=== PATIENT | female | born 1950 | race Caucasian/White ===

== ENCOUNTER → 2020-01-01 12:45 | Outpatient (CLI) | payer MEDICARE, SELFPAY ==
--- NOTE | 2020-01-01 12:47 | XR_ITS ---
PROCEDURE: XR DEXA AXIAL SKELETON CLINICAL HISTORY: POST MENOPAUSAL COMPARISON: No exams were available for comparison FINDINGS: Right femoral neck density is 0.749 grams/centimeters sq with a T-score -0.9 Left femoral neck density is 0.750 grams/centimeters sq with T-score -0.9 L1-L4 density is 1.071 grams/centimeters sq with a T-score of 0.2 IMPRESSION: Normal bone density with low fracture risk Dictated by: Jase Das MD 01/01/2020 19:17 Electronically signed by Jase Das MD in [place] 01/01/2020 19:17
--- NOTE | 2020-01-01 12:47 | MM_ITS ---
PROCEDURE: MM DIG SCREENING MAMM BI W/CAD Digital Breast Tomosynthesis Included CLINICAL INDICATION: SCREENING There is no personal or family history of breast cancer. There has been a previous biopsy right breast for benign disease. Patient fell 5 years ago sustaining injury to the right breast which is near the previous biopsy site. COMPARISON: [facility] DIG MAMM-SCREEN MEAGAN from 04/05/2014 [facility] DIG MAMM-SCREEN MEAGAN from 06/19/2015 [facility] DIG MAMM-SCREEN MEAGAN W/CAD from 07/20/2016 TECHNIQUE: Standard CC and MLO images and 3D Tomosynthesis was obtained. R2 CAD reviewed. FINDINGS: Scattered fibroglandular densities are seen in the central portions of both breasts. Again noted is slightly increased asymmetric glandular elements upper-outer quadrant right breast at the site of the previous injury. There is and oil cyst just deep to the nipple right breast likely posttraumatic in etiology. A biopsy clip is seen upper outer quadrant right breast. There is a mole marker near the oil cyst and this was placed to ramila the site of the previous injury. There are 2 mole markers left breast. There are few scattered benign-appearing microcalcifications in each breast. A couple of tiny stable benign-appearing nodules left breast. There is no suspicious lesion and no suspicious microcalcifications. IMPRESSION: Fibrofatty parenchyma with minimal posttraumatic change right breast which is stable and no suspicious lesions seen BI-RAD Category: 2 Benign Finding(s) FOLLOW-UP: 1YR 1 Year Follow-up (A letter has been sent to the patient regarding results of the study.) Dictated by: Dr. Gibran Streeter MD 01/02/2020 11:[address] Gibran Streeter MD in [place] 01/02/2020 11:54
== END ==
PROVIDERS: PCP Family Medicine; Visit Provider Family Medicine
DX: Z12.31 Encounter for screening mammogram for malignant neoplasm of breast (principal); Z13.820 Encounter for screening for osteoporosis; Z78.0 Asymptomatic menopausal state
CPT/HCPCS: 77063; 77067; 77080

== ENCOUNTER → 2020-10-01 10:31 | Outpatient (CLI) | payer MEDICARE, SELFPAY | PROVIDERS: PCP Family Medicine; Visit Provider Podiatrist | DX: R09.89 Other specified symptoms and signs involving the circulatory and respiratory systems (principal) | CPT/HCPCS: 93923 ==

== ENCOUNTER → 2020-10-01 12:58 | Outpatient (POV) | payer MEDICARE, SELFPAY | PROVIDERS: Visit Provider Dermatology | DX: Z00.00 Encounter for general adult medical examination without abnormal findings (principal) ==

== ENCOUNTER → 2022-03-04 06:42 | Outpatient (CLI) | payer MEDICARE, SELFPAY | PROVIDERS: PCP Family Medicine; Visit Provider Surgery | DX: D48.5 Neoplasm of uncertain behavior of skin (principal) ==

== ENCOUNTER → 2022-03-25 06:11 | Outpatient (CLI) | payer MEDICARE, SELFPAY ==
[2022-03-25 18:30] LABS: Basophils # 0.1 K/mm3 (0-0.2); Basophils % 1.2 % (0.1-2.0); Eosinophils % 0.3 % (0.1-12.0); Hematocrit 43.4 % (37.0-47.0); Hemoglobin 13.7 g/dL (12.2-16.2); Lymphocytes # 0.9 K/mm3 (0.7-4.5); Lymphocytes % 13.2 % (10-50); Mean Corpuscular HGB Conc 31.5 g/dL (31.8-35.4); Mean Corpuscular Hemoglobin 29.3 pg (27.0-31.2); Mean Corpuscular Volume 93.2 fl (81-99); Mean Platelet Volume 9.3 fl (7.4-10.4); Monocytes # 0.4 K/mm3 (0.1-1.0); Monocytes % 5.2 % (1.7-9.3); Neutrophils # 5.6 K/mm3 (1.8-7.8); Neutrophils % 80.1 % (37.0-80.0); Platelet Count 244 K/mm3 (142-424); Red Blood Count 4.66 M/mm3 (4.20-5.40); Red Cell Distribution Width 13.8 % (11.5-17.5); White Blood Count 6.9 K/mm3 (4.8-10.8)
[2022-03-25 18:35] LABS: Blood Urea Nitrogen 31 mg/dl (7-17); Calcium 9.1 mg/dl (8.4-10.2); Carbon Dioxide 31 mmol/L (22.0-30.0); Chloride 99 mmol/L (98-107); Estimated Glomerular Filt Rate 41 ml/min (>60); GFR (African American) 49 ML/MIN (>60); Glucose 109 mg/dl (74-100); Phosphorous 3.9 mg/dl (2.5-4.5); Sodium 137 mmol/L (136-145)
[2022-03-25 18:47] LABS: Intact Parathyroid Hormone 93.5 pg/mL (7.5-53.5)
[2022-03-25 19:09] LABS: Hemoglobin A1C 5.7 % (4.0-6.0)
[2022-03-25 19:32] LABS: Creatinine,Urine Random 27 mg/dL (Not Estab.); Microalbumin < 6.000 mg/L (0-16.7)
== END ==
PROVIDERS: PCP Family Medicine; Visit Provider Family Medicine
DX: E11.65 Type 2 diabetes mellitus with hyperglycemia (principal); N18.32 Chronic kidney disease, stage 3b; Z79.84 Long term (current) use of oral hypoglycemic drugs
CPT/HCPCS: 80048; 82043; 82570; 83036; 83970; 84100; 85025

== ENCOUNTER → 2022-06-03 12:13 | Outpatient (CLI) | payer MEDICARE, SELFPAY | PROVIDERS: PCP Family Medicine; Visit Provider Family Medicine | DX: M79.10 Myalgia, unspecified site (principal) ==

== ENCOUNTER → 2022-06-03 13:30 | Outpatient (CLI) | payer MEDICARE, SELFPAY ==
--- NOTE | 2022-06-03 13:47 | XR_ITS ---
FINAL REPORT CLINICAL HISTORY: cervical radiculopathy FINDINGS: CERVICAL SPINE 5 views were obtained. There is no acute fracture. There are mild degenerative changes with osteophytes. There is mild anterolisthesis of C3 on C4 and C4 on C5. There is no soft tissue abnormality. IMPRESSION: Degenerative change with no acute bony abnormality. Reviewed, Interpreted and Dictated by Teodoro Nunez III, MD Transcribed by Daphne Butcher Authenticated and [facility]
[2022-06-03 17:38] LABS: Basophils % 0.6 % (0.1-2.0); Eosinophils % 0.2 % (0.1-12.0); Hematocrit 40.8 % (37.0-47.0); Lymphocytes # 0.8 K/mm3 (0.7-4.5); Lymphocytes % 14.6 % (10-50); Mean Corpuscular HGB Conc 31.8 g/dL (31.8-35.4); Mean Corpuscular Hemoglobin 29.3 pg (27.0-31.2); Mean Corpuscular Volume 92.2 fl (81-99); Mean Platelet Volume 9.3 fl (7.4-10.4); Monocytes # 0.3 K/mm3 (0.1-1.0); Monocytes % 4.8 % (1.7-9.3); Neutrophils # 4.1 K/mm3 (1.8-7.8); Neutrophils % 79.8 % (37.0-80.0); Platelet Count 237 K/mm3 (142-424); Red Blood Count 4.43 M/mm3 (4.20-5.40); Red Cell Distribution Width 14.1 % (11.5-17.5); White Blood Count 5.2 K/mm3 (4.8-10.8)
[2022-06-03 17:45] LABS: Anion Gap 19.9 mEq/L (5-15); Blood Urea Nitrogen 34 mg/dl (7-17); Calcium 9.6 mg/dl (8.4-10.2); Carbon Dioxide 30 mmol/L (22.0-30.0); Chloride 93 mmol/L (98-107); Creatine Kinase 42 U/L (30-135); Estimated Glomerular Filt Rate 37 ml/min (>60); GFR (African American) 45 ML/MIN (>60); Glucose 102 mg/dl (74-100); Potassium 3.9 mmoL/L (3.5-5.1); Sodium 139 mmol/L (136-145)
[2022-06-03 17:50] LABS: C-Reactive Protein 3.3 mg/L (0-4)
[2022-06-03 18:44] LABS: Erythrocyte Sedimentation Rate 23 mm/hr (0-30)
== END ==
PROVIDERS: PCP Family Medicine; Visit Provider Family Medicine
DX: M54.12 Radiculopathy, cervical region (principal); M79.10 Myalgia, unspecified site; N18.32 Chronic kidney disease, stage 3b; R25.2 Cramp and spasm
CPT/HCPCS: 72050; 80048; 82550; 85025; 85651; 86140

== ENCOUNTER → 2023-02-09 12:59 | Outpatient (CLI) | payer MEDICARE, SELFPAY ==
[2023-02-09 18:30] LABS: Alanine Aminotransferase 21 U/L (12-78); Albumin Level 3.7 g/dl (3.5-5.0); Albumin/Globulin Ratio 1.9 (1.1-1.8); Alkaline Phosphatase 81 U/L (38-126); Anion Gap 13.4 mEq/L (5-15); Aspartate Amino Transferase 25 U/L (14-36); Bilirubin,Total 0.4 mg/dl (0.2-1.3); Blood Urea Nitrogen 13 mg/dl (7-17); Calcium 8.5 mg/dl (8.4-10.2); Carbon Dioxide 30 mmol/L (22.0-30.0); Chloride 100 mmol/L (98-107); Estimated Glomerular Filt Rate 40 ml/min (>60); GFR (African American) 49 ML/MIN (>60); Globulin 1.9 g/dL (1.3-3.2); Glucose 92 mg/dl (74-100); Potassium 4.4 mmoL/L (3.5-5.1); Sodium 139 mmol/L (136-145); Total Protein,Serum 5.6 g/dl (6.3-8.2)
== END ==
PROVIDERS: PCP Family Medicine; Visit Provider Family Medicine
DX: F32.A Depression, unspecified (principal)
CPT/HCPCS: 80053

== ENCOUNTER → 2023-04-13 23:43 | Outpatient (CLI) | payer MEDICARE, SELFPAY ==
[2023-04-13 19:13] LABS: Basophils % 0.7 % (0.1-2.0); Eosinophils # 0.3 K/mm3 (0.0-0.4); Eosinophils % 5.5 % (0.1-12.0); Hematocrit 42.7 % (37.0-47.0); Hemoglobin 13.5 g/dL (12.2-16.2); Lymphocytes # 0.5 K/mm3 (0.7-4.5); Lymphocytes % 8.1 % (10-50); Mean Corpuscular HGB Conc 31.6 g/dL (31.8-35.4); Mean Corpuscular Hemoglobin 32.7 pg (27.0-31.2); Mean Corpuscular Volume 103.3 fl (81-99); Monocytes # 0.3 K/mm3 (0.1-1.0); Monocytes % 5.3 % (1.7-9.3); Neutrophils % 80.4 % (37.0-80.0); Platelet Count 151 K/mm3 (142-424); Red Blood Count 4.13 M/mm3 (4.20-5.40); Red Cell Distribution Width 15.7 % (11.5-17.5); White Blood Count 6.2 K/mm3 (4.8-10.8)
[2023-04-13 19:31] LABS: Anion Gap 12.7 mEq/L (5-15); Blood Urea Nitrogen 23 mg/dl (7-17); Calcium 9.2 mg/dl (8.4-10.2); Carbon Dioxide 32 mmol/L (22.0-30.0); Chloride 98 mmol/L (98-107); Estimated Glomerular Filt Rate 44 ml/min (>60); GFR (African American) 54 ML/MIN (>60); Glucose 99 mg/dl (74-100); Potassium 3.7 mmoL/L (3.5-5.1); Sodium 139 mmol/L (136-145)
[2023-04-13 19:44] LABS: Intact Parathyroid Hormone 113.9 pg/mL (7.5-53.5)
== END ==
PROVIDERS: PCP Psychiatry & Neurology Sleep Medicine; Visit Provider Family Medicine
DX: C90.00 Multiple myeloma not having achieved remission (principal); E11.8 Type 2 diabetes mellitus with unspecified complications; Z79.84 Long term (current) use of oral hypoglycemic drugs
CPT/HCPCS: 80048; 83970; 85025

== ENCOUNTER → 2023-06-15 23:26 | Outpatient (CLI) | payer MEDICARE, SELFPAY ==
[2023-06-15 18:03] LABS: Adenovirus,PCR Not Detected (NotDetected); Bordetella Pertussis Not Detected (NotDetected); Chlamydophila Pneumoniae, PCR Not Detected (NotDetected); Coronavirus 19, PCR Not Detected (NotDetected); Coronavirus 229E Not Detected (NotDetected); Coronavirus NL63 Not Detected (NotDetected); Coronavirus OC43 Not Detected (NotDetected); Coronovirus HKU1,PCR Not Detected (NotDetected); Human Metapneumovirus Not Detected (NotDetected); Influenza A, PCR Not Detected (NotDetected); Influenza AH1, 2009 Not Detected (NotDetected); Influenza AH1, PCR Not Detected (NotDetected); Influenza AH3,PCR Not Detected (NotDetected); Influenza B, PCR Not Detected (NotDetected); Parainfluenza 1, PCR Not Detected (NotDetected); Parainfluenza 2, PCR Not Detected (NotDetected); Parainfluenza 3, PCR Not Detected (NotDetected); Parainfluenza 4, PCR Not Detected (NotDetected); Rhinovirus/Enterovirus Not Detected (NotDetected)
[2023-06-15 18:39] LABS: Basophils % 0.4 % (0.1-2.0); Eosinophils # 0.2 K/mm3 (0.0-0.4); Hematocrit 44.1 % (37.0-47.0); Hemoglobin 14.8 g/dL (12.2-16.2); Lymphocytes # 0.2 K/mm3 (0.7-4.5); Lymphocytes % 4.1 % (10-50); Mean Corpuscular HGB Conc 33.5 g/dL (31.8-35.4); Mean Corpuscular Hemoglobin 34.4 pg (27.0-31.2); Mean Corpuscular Volume 102.8 fl (81-99); Mean Platelet Volume 11.1 fl (7.4-10.4); Monocytes # 0.3 K/mm3 (0.1-1.0); Monocytes % 7.1 % (1.7-9.3); Neutrophils # 3.8 K/mm3 (1.8-7.8); Neutrophils % 83.4 % (37.0-80.0); Platelet Count 145 K/mm3 (142-424); Red Blood Count 4.29 M/mm3 (4.20-5.40); Red Cell Distribution Width 15.6 % (11.5-17.5); White Blood Count 4.5 K/mm3 (4.8-10.8)
[2023-06-15 18:52] LABS: Chloride 93 mmol/L (98-107); Potassium 3.6 mmoL/L (3.5-5.1); Sodium 136 mmol/L (136-145)
[2023-06-15 18:55] LABS: Anion Gap 13.6 mEq/L (5-15); Blood Urea Nitrogen 28 mg/dl (7-17); Calcium 8.5 mg/dl (8.4-10.2); Carbon Dioxide 33 mmol/L (22.0-30.0); Estimated Glomerular Filt Rate 37 ml/min (>60); GFR (African American) 45 ML/MIN (>60); Glucose 138 mg/dl (74-100)
[2023-06-15 19:05] LABS: NT Pro Brain Natriuretic Pep. 580 pg/mL (0-125)
[2023-06-20 12:25] LABS: Mycoplasma Pneumoniae, PCR Not Detected (NotDetected); Respiratory Syncytial Virus Detected (NotDetected)
== END ==
PROVIDERS: PCP Nurse Practitioner; Visit Provider Nurse Practitioner
DX: R09.89 Other specified symptoms and signs involving the circulatory and respiratory systems (principal); R05.9 Cough, unspecified; R06.2 Wheezing; B97.4 Respiratory syncytial virus as the cause of diseases classified elsewhere
CPT/HCPCS: 80048; 83880; 85025; 87581; 87632; 87635; 87798

== ENCOUNTER → 2023-06-16 10:36 | Outpatient (CLI) | payer MEDICARE, SELFPAY ==
--- NOTE | 2023-06-16 10:41 | XR_ITS ---
FINAL REPORT CLINICAL HISTORY: cough, SOB, bibasilar rales FINDINGS: TWO-VIEW CHEST The heart size is normal. The mediastinum is normal. Right chest port is present. The lungs are clear. There is no pneumothorax. There are degenerative changes in the thoracic spine. There are postoperative changes in the bilateral humeri. IMPRESSION: No acute cardiopulmonary process. Reviewed, Interpreted and Dictated by Teodoro Nunez III, MD Transcribed by Alise Diaz Authenticated and [facility]
== END ==
PROVIDERS: PCP Family Medicine; Visit Provider Nurse Practitioner
DX: R09.89 Other specified symptoms and signs involving the circulatory and respiratory systems (principal)
CPT/HCPCS: 71046

== ENCOUNTER 2023-07-27 16:14 | Outpatient (POV) | payer MEDICARE, SELFPAY | END 2023-07-27 23:59 | disposition home or self-care (01) | LOC: SC 16:15 | PROVIDERS: PCP Family Medicine; Visit Provider Dermatology | DX: Z00.00 Encounter for general adult medical examination without abnormal findings (principal) ==

== ENCOUNTER 2023-11-11 18:00 | Outpatient (CLI) | payer MEDICARE, SELFPAY ==
[2023-11-11 17:40] LABS: Adenovirus,PCR Not Detected (NotDetected); Coronavirus 19, PCR Not Detected (NotDetected); Coronavirus 229E Not Detected (NotDetected); Coronavirus NL63 Not Detected (NotDetected); Coronavirus OC43 Not Detected (NotDetected); Coronovirus HKU1,PCR Not Detected (NotDetected); Human Metapneumovirus Not Detected (NotDetected); Influenza A, PCR Not Detected (NotDetected); Influenza AH1, 2009 Not Detected (NotDetected); Influenza AH1, PCR Not Detected (NotDetected); Influenza AH3,PCR Not Detected (NotDetected); Influenza B, PCR Not Detected (NotDetected); Parainfluenza 1, PCR Not Detected (NotDetected); Parainfluenza 2, PCR Not Detected (NotDetected); Parainfluenza 4, PCR Not Detected (NotDetected); Respiratory Syncytial Virus Not Detected (NotDetected); Rhinovirus/Enterovirus Not Detected (NotDetected)
[2023-11-11 20:09] LABS: Parainfluenza 3, PCR Detected (NotDetected)
== END 2023-11-11 23:59 | disposition home or self-care (01) ==
LOC: LAB.DROPOF 11-12 13:44
PROVIDERS: PCP Nurse Practitioner; Visit Provider Nurse Practitioner
DX: J12.2 Parainfluenza virus pneumonia (principal); R50.9 Fever, unspecified; R05.9 Cough, unspecified; R09.81 Nasal congestion; Z79.899 Other long term (current) drug therapy
CPT/HCPCS: 87632; 87635

== ENCOUNTER 2023-12-23 18:00 | Outpatient (CLI) | payer MEDICARE, SELFPAY ==
[2023-12-23 20:04] LABS: Adenovirus,PCR Not Detected (NotDetected); Bordetella Pertussis Not Detected (NotDetected); Chlamydophila Pneumoniae, PCR Not Detected (NotDetected); Coronavirus 229E Not Detected (NotDetected); Coronavirus NL63 Not Detected (NotDetected); Coronavirus OC43 Not Detected (NotDetected); Coronovirus HKU1,PCR Not Detected (NotDetected); Human Metapneumovirus Not Detected (NotDetected); Influenza A, PCR Not Detected (NotDetected); Influenza AH1, 2009 Not Detected (NotDetected); Influenza AH1, PCR Not Detected (NotDetected); Influenza AH3,PCR Not Detected (NotDetected); Influenza B, PCR Not Detected (NotDetected); Mycoplasma Pneumoniae, PCR Not Detected (NotDetected); Parainfluenza 1, PCR Not Detected (NotDetected); Parainfluenza 2, PCR Not Detected (NotDetected); Parainfluenza 3, PCR Not Detected (NotDetected); Parainfluenza 4, PCR Not Detected (NotDetected); Respiratory Syncytial Virus Not Detected (NotDetected); Rhinovirus/Enterovirus Not Detected (NotDetected)
[2023-12-23 20:11] LABS: Basophils # 0.1 K/mm3 (0-0.2); Basophils % 1.2 % (0.1-2.0); Eosinophils # 0.1 K/mm3 (0.0-0.4); Eosinophils % 2.2 % (0.1-12.0); Hematocrit 39.4 % (37.0-47.0); Hemoglobin 12.8 g/dL (12.2-16.2); Lymphocytes # 0.4 K/mm3 (0.7-4.5); Lymphocytes % 6.4 % (10-50); Mean Corpuscular HGB Conc 32.3 g/dL (31.8-35.4); Mean Corpuscular Hemoglobin 33.9 pg (27.0-31.2); Mean Corpuscular Volume 104.8 fl (81-99); Mean Platelet Volume 10.1 fl (7.4-10.4); Monocytes # 0.3 K/mm3 (0.1-1.0); Monocytes % 4.4 % (1.7-9.3); Neutrophils % 85.7 % (37.0-80.0); Platelet Count 149 K/mm3 (142-424); Red Blood Count 3.76 M/mm3 (4.20-5.40); Red Cell Distribution Width 15.9 % (11.5-17.5); White Blood Count 5.8 K/mm3 (4.8-10.8)
[2023-12-23 20:12] LABS: MANUAL DIFFERENTIAL MANUAL DIFFERENTIAL (MANUAL DIFF)
[2023-12-23 20:40] LABS: Hemoglobin A1C 5.6 % (4.0-6.0)
[2023-12-23 20:43] LABS: Eosinophils % 1 % (0-3); Lymphocytes % 8 % (10-50); Macrocytosis 1+; Monocytes % 5 % (2-9); Neutrophils % 86 % (42-76); Platelet Estimate Normal; Total Cells Counted 100
[2023-12-23 22:54] LABS: Coronavirus 19, PCR Detected (NotDetected)
== END 2023-12-23 23:59 | disposition home or self-care (01) ==
LOC: LAB.DROPOF 12-24 14:30
PROVIDERS: PCP Nurse Practitioner; Visit Provider Nurse Practitioner
DX: E11.65 Type 2 diabetes mellitus with hyperglycemia; U07.1 COVID-19; Z79.84 Long term (current) use of oral hypoglycemic drugs
CPT/HCPCS: 83036; 85007; 85025; 85027; 87581; 87632; 87635; 87798

== ENCOUNTER 2024-05-03 13:25 | Outpatient (CLI) | payer MEDICARE, SELFPAY ==
[2024-05-03 18:10] LABS: Adenovirus,PCR Not Detected (NotDetected); Bordetella Pertussis Not Detected (NotDetected); Chlamydophila Pneumoniae, PCR Not Detected (NotDetected); Coronavirus 19, PCR Not Detected (NotDetected); Coronavirus 229E Not Detected (NotDetected); Coronavirus NL63 Not Detected (NotDetected); Coronavirus OC43 Not Detected (NotDetected); Coronovirus HKU1,PCR Not Detected (NotDetected); Human Metapneumovirus Not Detected (NotDetected); Influenza A, PCR Not Detected (NotDetected); Influenza AH1, 2009 Not Detected (NotDetected); Influenza AH1, PCR Not Detected (NotDetected); Influenza AH3,PCR Not Detected (NotDetected); Influenza B, PCR Not Detected (NotDetected); Mycoplasma Pneumoniae, PCR Not Detected (NotDetected); Parainfluenza 1, PCR Not Detected (NotDetected); Parainfluenza 2, PCR Not Detected (NotDetected); Parainfluenza 3, PCR Not Detected (NotDetected); Parainfluenza 4, PCR Not Detected (NotDetected); Respiratory Syncytial Virus Not Detected (NotDetected); Rhinovirus/Enterovirus Not Detected (NotDetected)
== END 2024-05-03 23:59 | disposition home or self-care (01) ==
LOC: LAB.DROPOF 05-04 13:25
PROVIDERS: PCP Nurse Practitioner; Visit Provider Nurse Practitioner
DX: J06.9 Acute upper respiratory infection, unspecified (principal)
CPT/HCPCS: 87265; 87486; 87581; 87632; 87635

== ENCOUNTER 2024-05-22 12:26 | Outpatient (CLI) | payer MEDICARE, SELFPAY ==
[2024-05-22 17:58] LABS: Adenovirus,PCR Not Detected (NotDetected); Bordetella Pertussis Not Detected (NotDetected); Chlamydophila Pneumoniae, PCR Not Detected (NotDetected); Coronavirus 19, PCR Not Detected (NotDetected); Coronavirus 229E Not Detected (NotDetected); Coronavirus NL63 Not Detected (NotDetected); Coronavirus OC43 Not Detected (NotDetected); Coronovirus HKU1,PCR Not Detected (NotDetected); Human Metapneumovirus Not Detected (NotDetected); Influenza A, PCR Not Detected (NotDetected); Influenza AH1, 2009 Not Detected (NotDetected); Influenza AH1, PCR Not Detected (NotDetected); Influenza AH3,PCR Not Detected (NotDetected); Influenza B, PCR Not Detected (NotDetected); Mycoplasma Pneumoniae, PCR Not Detected (NotDetected); Parainfluenza 1, PCR Not Detected (NotDetected); Parainfluenza 2, PCR Not Detected (NotDetected); Parainfluenza 3, PCR Not Detected (NotDetected); Parainfluenza 4, PCR Not Detected (NotDetected); Respiratory Syncytial Virus Not Detected (NotDetected)
[2024-05-23] LABS: Rhinovirus/Enterovirus Detected (NotDetected)
== END 2024-05-22 23:59 | disposition home or self-care (01) ==
LOC: LAB.DROPOF 05-23 09:30
PROVIDERS: PCP Nurse Practitioner; Visit Provider Nurse Practitioner
DX: J06.9 Acute upper respiratory infection, unspecified (principal); J40 Bronchitis, not specified as acute or chronic; R05.9 Cough, unspecified; R06.2 Wheezing; J18.9 Pneumonia, unspecified organism
CPT/HCPCS: 87265; 87486; 87581; 87632; 87635

== ENCOUNTER 2024-10-17 11:19 | Outpatient (CLI) | payer MEDICARE, SELFPAY ==
[2024-10-17 18:04] LABS: Coronavirus 19, PCR Not Detected (NotDetected); Influenza A, PCR Not Detected (NotDetected); Influenza B, PCR Not Detected (NotDetected); Respiratory Syncytial Virus Not Detected (NotDetected)
[2024-10-17 18:51] LABS: Basophils % 0.6 % (0.1-2.0); Eosinophils # 0.5 K/mm3 (0.0-0.4); Eosinophils % 7.2 % (0.1-12.0); Hematocrit 39.4 % (37.0-47.0); Lymphocytes # 0.6 K/mm3 (0.7-4.5); Lymphocytes % 8.2 % (10-50); Mean Corpuscular Hemoglobin 33.7 pg (27.0-31.2); Mean Corpuscular Volume 102.1 fl (81-99); Mean Platelet Volume 10.7 fl (7.4-10.4); Monocytes # 0.4 K/mm3 (0.1-1.0); Neutrophils # 5.6 K/mm3 (1.8-7.8); Neutrophils % 77.6 % (37.0-80.0); Platelet Count 208 K/mm3 (142-424); Red Blood Count 3.86 M/mm3 (4.20-5.40); White Blood Count 7.2 K/mm3 (4.8-10.8)
[2024-10-17 21:09] LABS: Human Rhinovirus Detected (NotDetected)
== END 2024-10-17 23:59 | disposition home or self-care (01) ==
LOC: LAB.DROPOF 10-18 09:49
PROVIDERS: PCP Nurse Practitioner; Visit Provider Nurse Practitioner
DX: J06.9 Acute upper respiratory infection, unspecified (principal)
CPT/HCPCS: 85025; 87631

== ENCOUNTER 2025-05-09 11:52 | Outpatient (CLI) | payer MEDICARE, SELFPAY ==
--- OUTSIDE RECORDS SUMMARY | 2025-05-10 13:59 | XMS_ITS | Clinical Summary ---
Author Organization [facility] Address [address] [place] [address] Care Team Providers Care Process Tank Tender Name Role Phone Sarath Keen MD Primary Care Provider [phone] Nina Farmer MD Unavailable Source Comments This information has been disclosed to you from confidential records protectedfrom disclosure by state law. You shall make no further disclosure of thisinformation without the specific, written, and informed release of theindividual to whom it pertains, or as otherwise permitted by law. A generalauthorization for the release of medical or other information is not sufficientfor the purposes of therelease of HIV test results or diagnoses. [id number] Allergies Active Allergy Reactions Criticality Noted Date Comments Penicillins Hives 02/01/2022 Sulfa (Sulfonamide Antibiotics) Nausea Only 03/02/2012 Other Reaction(s): NA-NAUSEA/FEVER Sulphated Oil 01/20/2023 Medications aspirin 81 MG EC tablet Take by mouth. Activ e citalopram (CELEXA) 10 MG tablet Take 1 tablet (10 mg total) by mouth daily. Active multivitamin (THERAGRAN) tablet Take 1 tablet by mouth daily. Active calcium-vitamin D (OSCAL-500 + D) 500 mg-5 mcg (200 unit) per tablet Take 1 tablet by mouth 2 times a day with meals. 4 Active gabapentin (NEURONTIN) 600 MG tablet Take 1 tablet (600 mg total) by mouth. 2 Active lenalidomide (REVLIMID) 10 mg capsule TAKE 1 CAPSULE DAILY FOR 21 DAYS, THEN 7 DAYS OFF 5 Active potassium chloride (KLOR-CON M20) 20 MEQ tablet Take 1 tablet (20 mEq total) by mouth daily. 4 Active JANUVIA 100 mg tablet 2 Active triamterene-hyd rochlorothiazid e (MAXZIDE-25) 37.5-25 mg tablet Take 1 tablet by mouth daily. 2 Active valACYclovir (VALTREX) 500 MG tablet Take 1 tablet (500 mg total) by mouth every 12 hours. 5 Active omeprazole (PRILOSEC) 40 MG capsule Take 1 capsule (40 mg total) by mouth daily. 2 Active allopurinoL (ZYLOPRIM) 300 MG tablet Take 1 tablet (300 mg total) by mouth every 48 hours. Active acetaminophen (TYLENOL) 325 MG tablet Take 2 tablets (650 mg total) by mouth every 6 hours as needed for Pain 100 tablet 5 Active naloxone (NARCAN) 4 mg/actuation Denhoff Apply 1 spray in one nostril if needed. Call 911. May repeat dose in other nostril if no response in 3 minutes. 2 each 1 5 Active fluticasone propionate (FLONASE) 50 mcg/actuation nasal spray PLACE 1 SPRAY INTO EACH NOSTRIL ONCE DAILY 5 Active fluorouraciL (EFUDEX) 5 % cream APPLY TOPICALLY DAILY X 30 DAYS OR UNTIL RED/INFLAMED TO THE ENTIRE FACE 5 Active cetirizine (ZYRTEC) 10 MG tablet TAKE 1 TABLET BY MOUTH DAILY NEEDED FOR ALLERGY SYMPTOMS 5 Active metoprolol tartrate (LOPRESSOR) 50 MG tablet take 1 tablet by mouth twice daily for blood pressure. 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 Cancer Staging:Pathologic stage from 09/20/2024:Stage III(pT2, pN1, cM0) - Signed by Rangel Carvajal MD on 09/20/2024 Cancer of face 08/22/2024 Hypertension 08/22/2024 Diabetes mellitus 08/22/2024 CKD (chronic kidney disease) 08/22/2024 Multiple myeloma 08/22/2024 AK (actinic keratosis) 11/28/2012 Neoplasm of uncertain behavior of skin 0 Actinic keratosis 12/20/2008 Contact dermatitis and other eczema, due to unspecified cause 12/20/2008 Rosacea 12/20/2008 Other specified disease of sebaceous glands 12/10 Urticaria 12/20/2008 Overview (04/11/2015): ICD-10 Transition Other dyschromia 12/20/2008 Actinic keratosis Encounters Date Type Department Care Team Description 03/09/2025 10:45 AM EDT Office Visit [facility] Ot[facility] at [facility] [address] [place] [address] Ken Alvarado MD Cooper, John G, MD Cancer of skin of face (Primary Dx) from Last 3 Months Family History Medical History Relation Comments Coronary artery disease Brother Anesthesia problems Neg Hx Melanoma Neg Hx Stroke Neg Hx Relation Status Comments Brother Social History Tobacco Use Types Packs/Day Years Used Date Smoking Tobacco: Never Smokeless Tobacco: Never Tobacco Cessation:Counseling Given: Not Answered Comments:12/20/08 Alcohol Use Standard Drinks/Week Comments Never 0 (1 standard drink = 0.6 oz pur e alcohol) 12/20/08 Utilities Answer Date Recorded In the past 12 months has th e electric, gas, oil, or water company threatened to shut off services in your home? No 09/07/2024 AUDIT-C Answer Date Recorded Q1: How often do you have a drink containing alc ohol? Monthly or less 09/08/2024 Q2: How many drinks containi ng alcohol do you have on a typical day when you are drinking? 1 or 2 09/08/2024 Q3: How often do you have si x or more drinks on one occasion? Never 09/08/2024 PHQ-2 Answer Date Recorded PHQ-2 Total Score 0 03/09/2025 Hunger Vital Sign Answer Date Recorded Within the past 12 months, y ou worried that your food would run out before you got the money to buy more. Never true 09/07/19 25 Within the past 12 months, t he food you bought just didn't last and you didn't have money to get more. Never true 09/07/2024 PRAPARE - Transportation Answer Date Re corded In the past 12 months, has l ack of transportation kept you from medical appointments or from getting medications? No 08/13 In the past 12 months, has l ack of transportation kept you from meetings, work, or from getting things needed for daily living? No 09/07/2024 Housing Stability Vital Sign Answer Valerio e Recorded In the last 12 months, was t here a time when you were not able to pay the mortgage or rent on time? No 09/07/2024 In the past 12 months, how m any times have you moved where you were living? 0 09/07/2024 At any time in the past [facility], were you homeless or living in a [facility] (including now)? No 09/07/2024 Yearly Questionnaire Answer Date Record ed Do you need any assistance w ith obtaining housing, meals, medication, transportation or medical equipment? No 03/09 Assistance needed for: Not on file Yearly Questionnaire Answer Date Record ed Do you need any assistance w ith obtaining housing, meals, medication, transportation or medical equipment? No 03/09 Assistance needed for: Not on file Yearly Questionnaire Answer Date Record ed Do you need any assistance w ith obtaining housing, meals, medication, transportation or medical equipment? No 03/09 Assistance needed for: Not on file 5 Comments No Sex and Gender Information Value Date Recorded Sex Assigned at Not on file Legal Sex Female 8:56 PM EST Gender Identity Not on file Sexual Orientation Not on file Last Filed Vital Signs Vital Sign Reading Time Taken Comments Blood Pressure 133/80 03/09/2025 10:35 AM EDT Pulse 72 03/09/2025 10:35 AM EDT Temperature 36.1 C (97 F) 03/09/2025 10:35 AM EDT Respiratory Rate 16 03/09/2025 10:35 AM EDT Oxygen Saturation 97% 03/09/2025 10:35 AM EDT Inhaled Oxygen Concentration 97% 03/09/2025 1 0:35 AM EDT Weight 124.3 kg (274 lb) 03/09/2025 10:35 AM EDT Height 165.1 cm (5' 5 ) 03/09/2025 10:35 AM EDT Body Mass Index 45.6 03/09/2025 10:35 AM EDT Plan of Treatment Health Maintenance Due Date Last Done Comments ASCVD Assessment 1950 Abnormal Colonoscopy Follow Up 1950 Lipid Panel 1950 Immunization: Zoster (1 of 2) 1971 Mammogram (MyChart) 1992 Cologuard (FIT-DNA) 1997 Colonoscopy 1997 Colorectal Cancer Screening (MyChart) 1997 Stool Testing (gFOBT) 1997 Osteoporosis Screening (DXA Scan) 2002 Immunization: RSV (Adult) (1 - Risk 60-74 years 1-dose series) 2012 Immunization: Pneumococcal (2 of 2 - PCV) 06/11/2022 06/11/2021 Diabetic Eye Exam (MyChart) 08/22/2024 Urine Albumin/Creatinine Ratio 08/22/2024 Hemoglobin A1C Monitoring ([employer]) 02/19/2025 08/22/2024 Immunization: COVID-19 ( season) 2025 05/27/2023, 01/19/2022, 05/09/2021, Additional history exists Immunization: Influenza ([employer]) (#1) 03/12/2025 05/16/2024, 07/06/2022, 06/11/2021, Additional history exists Renal Function/GFR 09/08/2025 09/08/2024, 0 09/07/2024, 08/22/2024 Depression Screening 03/09/2026 03/09/2025, 08/11/19 25 Immunization: DTaP/Tdap/Td (2 - Td or Tdap) 10/27/2027 10/26/2017, 09/16/1996 Immunization: HPV Aged Out No longer eligible based on patient's age to complete this topic Procedures Procedure Name Priority Date/Time Associated Diagnosis Comments RENAL FUNCTION PANEL W/EGFR Routine 09/08/2024 7:03 AM EST HEMOGLOBIN A1C Routine 08/22/2024 11:35 AM EST Pre-op evaluation from Last 3 Months or Most Recently Relevant to Health Maintenance Results * (ABNORMAL) Renal Function Panel w/EGFR (09/08/2024 7:03 AM EST) Sodium 140 133 - 146 mmol/L 09/08/2024 7:58 AM EST [facility] Potassium 3.6 3.5 - 5.3 mmol/L 09/08/2024 7:58 AM [facility] Chloride 105 98 - 110 mmol/L 09/08/2024 7:58 AM EST [facility] CO2 28 21 - 33 mmol/L 09/08/2024 7:58 AM [facility] Anion Gap 7 3 - 16 mmol/L 09/08/2024 7:58 AM EST [facility] BUN 22 7 - 25 mg/dL 09/08/2024 7:58 AM [facility] Creatinine 1.09 0.60 - 1.30 mg/dL 09/08/2024 7:58 AM [facility] Glucose 103(H) 70 - 100 mg/dL 09/08/2024 7:58 AM EST [facility] Calcium 8.4(L) 8.6 - 10.3 mg/dL 09/08/2024 7:58 AM [facility] Phosphorus 2.8 2.1 - 4.5 mg/dL 09/08/2024 7:58 AM [facility] Albumin 3.6 3.5 - 5.7 g/dL 09/08/2024 7:58 AM [facility] Osmolality, Calculated 294 278 - 305 mOsm/kg 09/08/2024 7:58 AM EST [facility] EGFR 54 09/08/2024 7:58 AM [facility] Comment:As of 2021, the estimated GFR is calculated using the 2020 Chronic Kidney Disease Epidemiology Collaboration (CKD-EPI) equation. In line with the NKF-ASN Task Force Recommendations, this equation does not include a coefficient for race. A single eGFR value is calculated for each patient. The reference interval is >60 mL/min/1.73m2. eGFR values greater than 90 will be reported as >90mL/min/1.73m2. Reference: Nabil Ordoñez, Daniel M, Tabby DC, Kalina ND, Celena [place], Ashley LA, et al. A Unifying Approach for GFR Estimation: Recommendations of the NKF-ASN Task Force on Reassessing the inclusion of Race in Diagnosing Kidney Disease. Am J Kidney Dis. 2020. Plasma 09/08/2024 7:03 AM EST 09/08/2024 7:27 AM EST Leeroy Arellano MD LAB BLOOD ORDERABLES Fin al Result [facility] [address] [facility]. [address] * (ABNORMAL) Hemoglobin A1c (08/22/2024 11:35 AM EST) Hemoglobin A1C 5.9(H) 4.0 - 5.6 % 08/22/2024 5:57 PM EST [facility] Comment: Hemoglobin A1c Interpretation Guidelines: Normal: <5.7% Prediabetes: 5.7-6.4% Diabetes: >6.4% Diagnosis requires two independent tests unless clinical diagnosis is clear. Some clinical conditions, particularly anemias and hemoglobinopathies, may interfere with the diagnostic accuracy of hemoglobin A1c. The recommended goal for diabetic glycemic control (Hemoglobin A1c <7.0%) should be individualized based on duration of diabetes, age/life expectancy, comorbid conditions, known CVD or advanced microvascular complications, hypoglycemia unawareness, and other individual patient considerations. Whole Blood 08/22/2024 11:3 5 AM EST 08/22/2024 2:03 PM EST Magalys Castañeda CNP LAB BLOOD ORDERABLES Final Result Performing Organization Address City/[facility]/ZIP Co de Phone Number [facility] [address] from Last 3 Months or Most Recently Relevant to Health Maintenance Insurance MEDICARE PPO COMP Advance Directives For more information, please contact: [phone] * Full Code (Latest Code Status on File) Date Activated Date Inactivated Comments 09/07/2024 4:34 PM 09/09/2024 8:38 PM Care Teams Process Tank Tender Relationship Specialty Start Date End Date Sarath Keen MD [address] [facility] [address] [place] [address] PCP - General Family Medicine 02/18/12 Nina Farmer MD [address] [place] [address] Referring Physician Dermatology 08/10/24
--- OUTSIDE RECORDS SUMMARY | 2025-05-10 13:59 | XMS_ITS | Clinical Summary ---
Author Organization [facility] Address [address] [place] [address] Care Team Providers Care Electrical Tech/Project Manager Name Role Phone Laureano Marin MD Primary Care Provider + [phone] Social History Tobacco Use Types Packs/Day Years Used Date Smoking Tobacco: Never Assessed Comments Unknown Sex and Gender Information Value Date Recorded Sex Assigned at Not on file Legal Sex Female 8:55 PM EDT Gender Identity Not on file Sexual Orientation Not on file Plan of Treatment Health Maintenance Due Date Last Done Comments [facility]-Bone Density Scan 1950 [facility]-Depression Screening 1952 [facility]-/Child/Adol SDOH Screenings 1950 [facility]- SDOH Screenings 1970 [facility]-Adult SDOH Screenings 1970 CT Colonography 1997 Colonoscopy 1997 FIT-DNA 1997 FIT 1997 FOBT 1997 Sigmoidoscopy 1997 [facility]-Colorectal Cancer Screening 1997 [facility]-Zoster Vaccines (1 of 2) 2002 [facility]-Pneumococcal Vaccine: 50+ Years (2 of 2 - PCV) 06/11/2022 06/11/2021 OCT-MPNEA-51 Vaccine ( season) 2025 01/19/2022, 05/09/2021, 08/20/2020, Additional history exists [facility]-Influenza Vaccine (#1) 2025 06/11/2021, [facility]-RSV Vaccine: 60+ Years or (1 - 1-dose 75+ series) 2027 [facility]-DTaP,Tdap,and Td Vaccines (2 - Td or Tdap) 10/27/2027 10/26/2017, 09/16/1996 HPV Vaccines Aged Out No longer eligi ble based on patient's age to complete this topic [facility]-HIB Vaccines Aged Out No longer e ligible based on patient's age to complete this topic [facility]-Hepatitis A Vaccines Aged Out No longer eligible based on patient's age to complete this topic [facility]-IPV Vaccines Aged Out No longer e ligible based on patient's age to complete this topic [facility]-Rotavirus Vaccines Aged Out No lo nger eligible based on patient's age to complete this topic Insurance [facility] MEDICARE Care Teams Electrical Tech/Project Manager Relationship Specialty Start Date End Date Laureano Marin MD [address] [facility] [address] [place] [address] PCP - General 06/18/22
== END 2025-05-09 23:59 | disposition home or self-care (01) ==
LOC: LAB.DROPOF 05-10 13:47
PROVIDERS: PCP Nurse Practitioner; Visit Provider Nurse Practitioner
DX: R35.0 Frequency of micturition (principal); R13.10 Dysphagia, unspecified; R31.9 Hematuria, unspecified; E11.65 Type 2 diabetes mellitus with hyperglycemia
CPT/HCPCS: 82043; 82570; 87086; 87088

== ENCOUNTER 2025-05-31 12:57 | Outpatient (CLI) | payer MEDICARE, SELFPAY ==
--- OUTSIDE RECORDS SUMMARY | 2025-04-02 14:00 | XMS_ITS | Encounter Summary ---
Author Organization [facility] Address [address] [place] [address] Care Team Providers Care Monorail Operator Name Role Phone Laureano Marin MD Primary Care Provider + [phone] Gerry Bae MD Unavailable [phone] Reason for Referral * Ultrasound (Routine) - Pending Review Specialty Diagnoses / Procedures Referred By Star hi Referred To Contact Radiology Diagnoses Stage 3a chronic kidney disease (HCC) Type 2 diabetes mellitus with stage 3a chronic kidney disease, without long-term current use of insulin (HCC) Multiple myeloma not having achieved remission (HCC) Procedures US RENAL AND BLADDER Nafisa Stringer MD [address] [place] [address] Phone: tel: fax: Referral ID Status Reason Start Date Expiration Date V isits Requested Visits Authorized [id number] Pending Review 04/02/2025 04/02/2026 1 1 Reason for Visit * Reason Comments New Patient * Consultation (Routine) - Pending Review Specialty Diagnoses / Procedures Referred By Star hi Referred To Contact Internal Medicine-Nephrology / Nephrology Diagnoses Stage 3b chronic kidney disease (HCC) Procedures PA OFFICE/OUTPATIENT NEW MODERATE MDM 45 MINUTES Gerry Bae MD [address] [place] [address] Phone: tel: fax: Albania Olivera MD [address] [facility] [address] [place] [address] Phone: tel: fax: Referral ID Status Reason Start Date Expiration Date V isits Requested Visits Authorized [id number] Pending Review 01/16/2025 01/16/2026 1 1 Encounter Details Date Type Department Care Team (Late st Contact Info) Description 04/02/2025 3:00 PM EDT Office Visit [facility] [place] [address] Nafisa Stringer MD [facility] [address] [place] [address] Stage 3a chronic kidney disease (HCC) (Primary Dx); Type 2 diabetes mellitus with stage 3a chronic kidney disease, without long-term current use of insulin (HCC); Multiple myeloma not having achieved remission (HCC); Class 3 severe obesity with serious comorbidity and body mass index (BMI) of 45.0 to 49.9 in adult, unspecified obesity type; Class 3 severe obesity with serious comorbidity and body mass index (BMI) of 45.0 to 49.9 in adult Social History Tobacco Use Types Packs/Day Years Used Date Smoking Tobacco: Never Smokeless Tobacco: Never Tobacco Cessation:Counseling Given: Not Answered Alcohol Use Standard Drinks/Week Comments Never 0 (1 standard drink = 0.6 oz pur e alcohol) PHQ-2 Answer Date Recorded PHQ-2 Total Score 0 07/25/2024 Comments No Sex and Gender Information Value Date Recorded Sex Assigned at Not on file Legal Sex Female 9:00 PM EDT Gender Identity Not on file Sexual Orientation Not on file documented as of this encounter Last Filed Vital Signs Vital Sign Reading Time Taken Comments Blood Pressure 129/62 04/02/2025 3:01 PM EDT Pulse 70 04/02/2025 3:01 PM EDT Temperature - - Respiratory Rate - - Oxygen Saturation - - Inhaled Oxygen Concentration - - Weight 125.7 kg (277 lb 0.6 oz) 04/02/2025 3:01 PM EDT Height 165.1 cm (5' 5 ) 04/02/2025 3:01 PM EDT Body Mass Index 46.1 04/02/2025 3:01 PM EDT documented in this encounter Ordered Prescriptions Prescription Sig Dispense Quantity Refills Last Filled Start Date End Date fUROsemide (LASIX) 20 mg Oral Tablet Take 1 Tablet by mouth every 48 hours. 04/02/2025 documented in this encounter Progress Notes * Nafisa Stringer MD - 04/02/2025 3:57 PM EDTAssociated Problem(s): Multiple myeloma (HCC) Currently on chemotherapy with Daratumumab and Zometa (at dose reduction given renal dysfunction) Follows with Dr. Bae * Nafisa Stringer MD - 04/02/2025 3:56 PM EDTAssociated Problem(s): Type 2 diabetes mellitus with stage 3a chronic kidney disease, without long-term current use of insulin (HCC) With no evidence of large proteinuria Obtain following work up Will consider SGLT-2 /ACE1 once results are reviewed * Nafisa Stringer MD - 04/02/2025 3:56 PM EDTAssociated Problem(s): Stage 3a chronic kidney disease (HCC) Secondary to diabetes, advancing age and multiple myeloma on chemo Baseline Cr 1.2-1.4, GFR between 42 -47 ml/mn 24 hour urine protein 168 mg/d BP is at goal Overall her risk for progression is low Obtain following work up Once results are reviewed she may benefit from switching Januvia to SGLT-2 for renal protection andaddition of Lisinopril Counseled on at least 60 oz/d fluid intake OK to take EOD Lasix Avoid NSAIDs, and cut back on red meat documented in this encounter H&P Notes * Nafisa Stringer MD - 04/02/2025 3:00 PM EDT Images from the original note were not included. Subjective Subjective: Patient ID: Yudi Vasquez is a 74 y.o. female. Chief Complaint Patient presents with New Patient HPI: 74 yo female with past medical history of type 2 diabetes, Ig G kappa multiple myeloma diagnosed inDec of 2021, was on chemotherapy with revlimid, Daratumumab and Zometa (at dose reduction given renal dysfunction) is here for further evaluation of stage 3 A CKD Labs revealed a Cr between 1.2-1.4 over the last 1 year She denies kidney stones, NSAID use, urinary complaints 24 hour urine showed a protein of 168 mg/d Past Medical History: Diagnosis Date Anxiety Arthritis Bone cancer (HCC) Cancer (HCC) Cataract Chronic kidney disease 3b Depression Diabetes mellitus (HCC) GERD (gastroesophageal reflux disease) Hypertension Kidney disease Neuropathy Past Surgical History: Procedure Laterality Date APPENDECTOMY CATARACT EXTRACTION EXTRACAPSULAR W/ INTRAOCULAR LENS IMPLANTATION Left 03/17/2022 Dr. Neri Norris CATARACT EXTRACTION EXTRACAPSULAR W/ INTRAOCULAR LENS IMPLANTATION Right 03/31/2022 Dr. Neri Norris CATARACT REMOVAL CENTRAL VENOUS CATHETER 07/29/[address] NEEDLE BIOPSY BONE 08/04/2022 CT NEEDLE BIOPSY BONE 08/04/[address] EYE SURGERY FRACTURE SURGERY 2022 HUMERUS FRACTURE SURGERY Left 08/04/2022 OPEN REDUCTION INTERNAL FIXATION LEFT PROXIMAL HUMERUS WITH INTRAMEDULLARY NAIL; Surgeon: Viktor Joseph DO; Location: [facility] MAIN OR; Service: Orthopedics HUMERUS FRACTURE SURGERY WITH IMPLANT Right 2022 RIGHT HUMERUS OPEN REDUCTION INTERNAL FIXATION WITH INTRAMEDULLARY NAIL, WITH BIOPSY; Surgeon: Viktor Joseph DO; Location: [facility] MAIN OR; Service: Orthopedics HYSTERECTOMY, VAGINAL 08/1999 IR PORT PLACEMENT EQUAL OR > 5 YEARS 07/29/2022 IR PORT PLACEMENT EQUAL OR > 5 YEARS 07/29/2022 Ajay Orta MD [facility] IR ULTRASOUND GUIDED VASCULAR ACCESS 07/29/2022 IR ULTRASOUND GUIDED VASCULAR ACCESS 07/29/2022 Ajay Orta MD [facility] LYMPH NODE BIOPSY Right 09/07/[address] Alvarado UC SKIN CANCER EXCISION Right 09/07/2024 wide excision rt face. Dr Alvarado Family History Problem Relation Age of Onset Cancer Mother colon Heart Attack Father Heart Disease Father age 93 Heart Attack Brother Diabetes Maternal Grandfather and many others in family Heart Disease Brother massive h. attack at age 46 Anesth Problems Neg Hx Social History Socioeconomic History Marital status: Spouse name: None Number of children: None Years of education: None Highest education level: None Tobacco Use Smoking status: Never Smokeless tobacco: Never Vaping Use Vaping status: Never Used Substance and Sexual Activity Alcohol use: Never Drug use: Never Social Drivers of Health Food Insecurity: No Food Insecurity (03/09/2025) Received from [facility] Yearly Questionnaire Do you need any assistance with obtaining housing, meals, medication, transportation or medical equipment?: No Transportation Needs: No Transportation Needs (03/09/2025) Received from [facility] Yearly Questionnaire Do you need any assistance with obtaining housing, meals, medication, transportation or medical equipment?: No Housing Stability: Low Risk (03/09/2025) Received from [facility] Yearly Questionnaire Do you need any assistance with obtaining housing, meals, medication, transportation or medical equipment?: No Allergies Allergen Reactions Penicillins Hives Sulfa (Sulfonamide Antibiotics) Nausea Only and Other (See Comments) Fever and chills Current Outpatient Medications Medication Sig Dispense Refill allopurinoL (ZYLOPRIM) 300 mg Oral Tablet Take 300 mg by mouth every other day. aspirin 81 mg Oral Tablet, Delayed Release (E.C.) Take 81 mg by mouth daily. calcium carbonate-vitamin D (OYSTER SHELL CALCIUM-VIT D3) 500 mg-5 mcg (200 unit) Oral Tablet Take 1 Tablet by mouth 2 times daily (with meals). 60 Tablet 11 citalopram (CELEXA) 20 mg Oral Tablet Take 20 mg by mouth daily. fUROsemide (LASIX) 20 mg Oral Tablet Take 1 Tablet by mouth every 48 hours. gabapentin (NEURONTIN) 600 mg Oral Tablet Take 600 mg by mouth 2 times daily. JANUVIA 100 mg Oral Tablet lidocaine-prilocaine (EMLA) Top Cream Apply one nickel sized glob over port approx 30 minutes before appt. DO NOT RUB IN. Cover with plastic wrap 30 g 2 metoprolol (LOPRESSOR) 50 mg Oral Tablet Take 50 mg by mouth 2 times daily. multivit-min/iron/folic/lutein (CENTRUM SILVER WOMEN ORAL) Take 1 Tablet by mouth daily. mupirocin (BACTROBAN) 2 % Top Ointment Apply BID to the affected areas on the right forearm and fingers until fully healed. 30 g 0 omeprazole (PRILOSEC) 40 mg Oral Capsule, Delayed Release(E.C.) Take 40 mg by mouth daily. ONETOUCH DELICA PLUS LANCET 33 gauge Misc Misc ONETOUCH ULTRA TEST Misc Strip TEST BLOOD SUGAR ONCE A DAY potassium chloride (KLOR-CON M) 20 mEq Oral Tab Sust.Rel. Particle/Crystal Take 1 Tablet by mouth daily. 30 Tablet 3 triamterene-hydrochlorothiazide (MAXZIDE-25) 37.5-25 mg Oral Tablet Take 1 Tablet by mouth daily. valACYclovir (VALTREX) 500 mg Oral Tablet Take 1 Tablet by mouth every 12 hours. 60 Tablet 3 cetirizine (ZYRTEC) 10 mg Oral Tablet TAKE 1 TABLET BY MOUTH DAILY NEEDED FOR ALLERGY SYMPTOMS (Patient not taking: Reported on 02/13/2025) No current facility-administered medications for this visit. Immunization History Administered Date(s) Administered Influenza High Dose 05/02/2018, 04/26/2019, 04/17/2020, 05/16/2024 Influenza Vaccine Quadrivalent 05/04/2017 Influenza Vaccine Quadrivalent Adjuvanted 07/06/2022 Moderna SARS-CoV-2 Booster Vaccine 18+ Yrs (Light Blue Border) 05/09/2021, 01/19/2022 Moderna SARS-CoV-2 Vaccine 12+ Yrs (Light blue border) 07/24/2020, 08/20/2020 Pfizer SARS-CoV-2 Vaccine Bora-sucrose 12+ Yrs 05/27/2023 Pneumococcal Polysaccharide 23 Valent 06/11/2021 Quadrivalent Influenza High Dose 06/11/2021 Td (Adult), Absorbed 09/16/1996 Tdap 10/26/2017 Patient Active Problem List Diagnosis Urticaria Other specified disease of sebaceous glands Other dyschromia Neoplasm of uncertain behavior of skin Contact dermatitis and other eczema, due to unspecified cause Actinic keratosis Acute pain of right knee Synovitis of right shoulder Closed nondisplaced comminuted fracture of shaft of right humerus Humerus lesion, right Bone metastases Pathological fracture, left humerus, initial encounter for fracture Multiple myeloma (HCC) Lesion of right humerus Pathological fracture of left humerus Closed nondisplaced comminuted fracture of shaft of right humerus Obesity, morbid, BMI 50 or higher (HCC) Diabetes mellitus type 2 in obese Chronic pain due to neoplasm Thrombocytopenia Squamous cell carcinoma of preauricular region Squamous cell cancer of skin of left hand Squamous cell cancer of skin of finger, right Squamous cell carcinoma of lower leg, right Squamous cell carcinoma of right lower leg Encounter for postoperative wound check AK (actinic keratosis) 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 There were no changesexcept as noted. Review of Systems Constitutional: Negative for activity change, appetite change, fatigue and unexpected weight change. HENT: Negative. Respiratory: Negative for cough, chest tightness, shortness of breath and wheezing. Cardiovascular: Negative for chest pain, palpitations and leg swelling. Gastrointestinal: Negative for abdominal pain, diarrhea, nausea and vomiting. Genitourinary: Negative for dysuria, flank pain, frequency and urgency. Musculoskeletal: Negative. Neurological: Negative for dizziness, weakness, light-headedness and headaches. Psychiatric/Behavioral: Negative. Objective Objective: Vitals: 04/02/25 1501 BP: 129/62 BP Location: Left arm Patient Position: Sitting Pulse: 70 Weight: 277 lb 0.6 oz (125.7 kg) Height: 5' 5 (1.651 m) Body mass index is 46.1 kg/m??. Physical Exam Vitals reviewed. Constitutional: General: She is not in acute distress. Appearance: Normal appearance. She is obese. HENT: Head: Normocephalic and atraumatic. Nose: Nose normal. No congestion. Mouth/Throat: Mouth: Mucous membranes are moist. Pharynx: Oropharynx is clear. Eyes: General: No scleral icterus. Extraocular Movements: Extraocular movements intact. Conjunctiva/sclera: Conjunctivae normal. Pupils: Pupils are equal, round, and reactive to light. Cardiovascular: Rate and Rhythm: Normal rate and regular rhythm. Pulses: Normal pulses. Heart sounds: Normal heart sounds. No murmur heard. No friction rub. Pulmonary: Effort: Pulmonary effort is normal. No respiratory distress. Breath sounds: Normal breath sounds. No wheezing or rales. Abdominal: General: Bowel sounds are normal. Palpations: Abdomen is soft. Tenderness: There is no right CVA tenderness or left CVA tenderness. Musculoskeletal: General: No swelling or tenderness. Normal range of motion. Cervical back: Normal range of motion and neck supple. Right lower leg: No edema. Left lower leg: No edema. Skin: General: Skin is warm. Neurological: General: No focal deficit present. Mental Status: She is alert and oriented to person, place, and time. Psychiatric: Mood and Affect: Mood normal. Behavior: Behavior normal. Latest Reference Range & Units 03/13/25 09:40 Sodium 136 - 145 mmol/L 141 Potassium 3.5 - 5.0 mmol/L 4.3 Chloride 98 - 107 mmol/L 102 CO2 22 - 29 mmol/L 28 Calcium 8.8 - 10.4 mg/dL 9.7 Glucose 70 - 99 mg/dL 107 (H) BUN 8 - 23 mg/dL 18 Creatinine, Ser 0.51 - 1.30 mg/dL 1.35 (H) eGFR (CKD-EPIcr 2020) >=60 mL/min/1.73 m2 42 (L) Albumin 3.2 - 4.6 gm/dL 3.9 Alk Phos 36 - 123 U/L 77 (H): Data is abnormally high (L): Data is abnormally low Urine Total Protein-per volume mg/dL 14 Urine 24 Hour Protein mg/day 168 High Assessment and Plan: Yudi was seen today for new patient. Diagnoses and all orders for this visit: Stage 3a chronic kidney disease (HCC) Assessment & Plan: Secondary to diabetes, advancing age and multiple myeloma on chemo Baseline Cr 1.2-1.4, GFR between 42 -47 ml/mn 24 hour urine protein 168 mg/d BP is at goal Overall her risk for progression is low Obtain following work up Once results are reviewed she may benefit from switching Januvia to SGLT-2 for renal protection andaddition of Lisinopril Counseled on at least 60 oz/d fluid intake OK to take EOD Lasix Avoid NSAIDs, and cut back on red meat Orders: - US RENAL AND BLADDER - URINALYSIS - PROTEIN/CREATININE RATIO URINE Type 2 diabetes mellitus with stage 3a chronic kidney disease, without long-term current use of insulin (HCC) Assessment & Plan: With no evidence of large proteinuria Obtain following work up Will consider SGLT-2 /ACE1 once results are reviewed Orders: - US RENAL AND BLADDER - URINALYSIS - PROTEIN/CREATININE RATIO URINE Multiple myeloma not having achieved remission (HCC) Assessment & Plan: Currently on chemotherapy with Daratumumab and Zometa (at dose reduction given renal dysfunction) Follows with Dr. Bae Orders: - US RENAL AND BLADDER - URINALYSIS - PROTEIN/CREATININE RATIO URINE Class 3 severe obesity with serious comorbidity and body mass index (BMI) of 45.0 to 49.9 in adult,unspecified obesity type Class 3 severe obesity with serious comorbidity and body mass index (BMI) of 45.0 to 49.9 in adult Other orders - fUROsemide (LASIX) 20 mg Oral Tablet Return in about 2 months (around 06/02/2025). Nafisa Stringer MD [facility] Nephrology [facility] documented in this encounter Plan of Treatment Upcoming Encounters Date Type Department Care Team (Late st Contact Info) Description 06/01/2025 1:45 PM EST Office Visit [facility] [address] [address] Caitlin Avila NP [address] [place] [address] 06/05/2025 10:00 AM EST Appointment [facility] [address] 06/05/2025 10:20 AM EST [facility]ointment [facility] [place] [address] Gerry Bae MD [address] [place] [address] 06/05/2025 11:00 AM EST Appointment [facility] [place] [place] [address] 07/02/2025 1:00 PM EST Office Visit [facility] Nephrology [facility] [address] [address] Nafisa Stringer MD [facility] [address] [address] Scheduled Orders Name Type Priority Associated Diagnoses Orde r Schedule URINALYSIS Lab Routine Stage 3a chronic kidney disease (HCC) 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 Author Knowledge Deficit General No Margaret Dickinson, KEMAR Note: Chemotherapy education provided and reviewed. documented as of this encounter Results * US RENAL AND BLADDER (05/08/2025 2:50 PM EDT) Anatomical Region Laterality Modality Abdomen, Pelvis Ultrasound 05/08/2025 2:50 PM EDT Impressions 05/08/2025 3:45 PM EDT No evidence of active obstructive uropathy or other acute finding. - Note: Radiology results need to be interpreted within a comprehensive clinical context. If you have questions about the radiology report, please contact the office of the ordering clinician. Narrative 05/08/2025 3:45 PM EDT US KIDNEYS AND BLADDER, 05/08/2025 2:50 PM CLINICAL HISTORY: N18.31-Chronic kidney disease, stage 3a (HCC)-ICD-10-CM E11.22-Type 2 diabetes mellitus with diabetic chronic kidney disease (HCC)-ICD-10-CM N18.31-Chronic kidney disease, stage 3a (HCC)-ICD-10-CM C90.00-Multiple myeloma not having achieved remission (HCC)-ICD-10-CM. COMPARISON: CT abdomen and pelvis without IV contrast 06/26/2022 PROCEDURE COMMENTS: Routine sonographic evaluation of the kidneys and bladder with union contract representative images and cross tie maker notes sent to PACS for radiologist review. FINDINGS: RIGHT: 10.6 x 4.3 x 4.6 cm. No hydronephrosis, solid-appearing mass, or shadowing stone. Simple appearing right renal cortical cysts with largest measuring up to 4.0 cm. LEFT: 11.1 x 4.5 x 5.4 cm. No hydronephrosis, solid-appearing mass, or shadowing stone. Simple appearing left renal cortical cysts with largest measuring up to 1.2 cm. PELVIS: No bladder mass identified. Procedure Note Moy Waters MD - 05/08/2025 US KIDNEYS AND BLADDER, 05/08/2025 2:50 PM CLINICAL HISTORY: N18.31-Chronic kidney disease, stage 3a(HCC)-ICD-10-CM E11.22-Type 2 diabetes mellitus with diabetic chronic kidney disease (HCC)-ICD-10-CM N18.31-Chronic kidney disease, stage 3a (HCC)-ICD-10-CM C90.00-Multiple myeloma not having achieved remission (HCC)-ICD-10-CM. COMPARISON: CT abdomen and pelvis without IV contrast 06/26/2022 PROCEDURE COMMENTS: Routine sonographic evaluation of the kidneys andbladder with union contract representative images and cross tie maker notes sent to PACS forradiologist review. FINDINGS: RIGHT: 10.6 x 4.3 x 4.6 cm. No hydronephrosis, solid-appearing mass,or shadowing stone. Simple appearing right renal cortical cysts withlargest measuring up to 4.0 cm. LEFT: 11.1 x 4.5 x 5.4 cm. No hydronephrosis, solid-appearing mass, or shadowing stone. Simple appearing left renal cortical cysts with largest measuring up to 1.2 cm. PELVIS: No bladder mass identified. IMPRESSION: No evidence of active obstructive uropathy or other acute finding. - Note: Radiology results need to be interpreted within a comprehensiveclinical context. If you have questions about the radiology report, please contactthe office of the ordering clinician. 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 kidney disease, without long-term current use of insulin (HCC) Multiple myeloma not having achieved remission (HCC) Multiple myeloma, without mention of having achieved remission Class 3 severe obesity with serious comorbidity and body mass index (BMI) of 45.0 to 49.9 in adult, unspecified obesity type (HCC) Stage 3a chronic kidney disease (HCC) Type 2 diabetes mellitus with stage 3a chronic kidney disease, without long-term current use of insulin (HCC) Multiple myeloma not having achieved remission (HCC) Multiple myeloma, without mention of having achieved remission documented in this encounter Discontinued Medications Medication Sig Discontinue Reason Start Date End Da te fUROsemide (LASIX) 20 mg Oral Tablet Take 20 mg by mouth daily. Dose adjustment 01/23/2022 04/02/2025 documented as of this encounter Care Teams Monorail Operator Relationship Specialty Start Date End Date Laureano Marin MD [address] [place] [address] [place] [id number] PCP - General Family Medicine 07/09/22 Gerry Bae MD [address] [facility] [address] [place] [id number] Medical Oncologist Internal Medicine-Hematology and Oncology 07/20/22 documented as of this encounter
--- OUTSIDE RECORDS SUMMARY | 2025-04-10 09:07 | XMS_ITS | Encounter Summary ---
Author [place] [address] Care Team Providers Care Charter Driver Name Role Phone Laureano Marin MD Primary Care Provider + [phone] Gerry Bae MD Unavailable [phone] Ciara Valencia RN Unavailable Unavailable Encounter Details Date Type Department Care Team (Latest Contact Info) Description 04/10/2025 10:07 AM EDT - 04/10/2025 10:19 AM EDT Hospital Encounter [facility] [address] Multiple myeloma not having achieved remission (HCC) (Primary Dx) Discharge Disposition: Home or Self Care Social History Tobacco Use Types Packs/Day Years Used Date Smoking Tobacco: Never Smokeless Tobacco: Never Alcohol Use Standard Drinks/Week Comments Never 0 (1 standard drink = 0.6 oz pur e alcohol) PHQ-2 Answer Date Recorded PHQ-2 Total Score 0 07/25/2024 Comments No Sex and Gender Information Value Date Recorded Sex Assigned at Not on file Legal Sex Female 9:00 PM EDT Gender Identity Not on file Sexual Orientation Not on file documented as of this encounter Medications at Time of Discharge allopurinoL (ZYLOPRIM) 300 mg Oral Tablet Take 300 mg by mouth every other day. aspirin 81 mg Oral Tablet, Delayed Release (E.C.) Take 81 mg by mouth daily. calcium carbonate-vitamin D (OYSTER SHELL CALCIUM-VIT D3) 500 mg-5 mcg (200 unit) Oral TabletIndications :Weakness Take 1 Tablet by mouth 2 times daily (with meals). 60 Tablet 11 11/15/2024 cetirizine (ZYRTEC) 10 mg Oral Tablet TAKE 1 TABLET BY MOUTH DAILY NEEDED FOR ALLERGY SYMPTOMS 08/31/2024 citalopram (CELEXA) 20 mg Oral Tablet Take 20 mg by mouth daily. fUROsemide (LASIX) 20 mg Oral Tablet Take 1 Tablet by mouth every 48 hours. 04/02/2025 gabapentin (NEURONTIN) 600 mg Oral Tablet Take 600 mg by mouth 2 times daily. 11/03/2021 JANUVIA 100 mg Oral Tablet 12/12/2021 lidocaine-priloca ine (EMLA) Top CreamIndications: Multiple myeloma not having achieved remission (HCC) Apply one nickel sized glob over port approx 30 minutes before appt. DO NOT RUB IN. Cover with plastic wrap 30 g 2 06/27/2024 metoprolol (LOPRESSOR) 50 mg Oral Tablet Take 50 mg by mouth 2 times daily. 01/22/2022 multivit-min/iron /folic/lutein (CENTRUM SILVER WOMEN ORAL) Take 1 Tablet by mouth daily. 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 30 g 03/01/2025 omeprazole (PRILOSEC) 40 mg Oral Capsule, Delayed Release(E.C.) Take 40 mg by mouth daily. 11/22/2021 ONETOUCH DELICA PLUS LANCET 33 gauge [facility] [place]/14/2022 ONETOUCH ULTRA TEST [facility] [place] TEST BLOOD SUGAR ONCE A DAY 11/25/2022 potassium chloride (KLOR-CON M) 20 mEq Oral Tab Sust.Rel. Particle/CrystalI ndications:Malign ant neoplasm metastatic to bone (HCC) Take 1 Tablet by mouth daily. 30 Tablet 3 12/27/2024 triamterene-hydro chlorothiazide (MAXZIDE-25) 37.5-25 mg Oral Tablet Take 1 Tablet by mouth daily. 01/22/2022 valACYclovir (VALTREX) 500 mg Oral TabletIndications :Multiple myeloma not having achieved remission (HCC) Take 1 Tablet by mouth every 12 hours. 60 Tablet 3 04/10/2025 documented as of this encounter Discharge Disposition Disposition Code Departure Means Destination Home or Self Care documented in this encounter Plan of Treatment Upcoming Encounters Date Type Department Care Team (Late st Contact Info) Description 06/01/2025 1:45 PM EST Office Visit Anuja LI [address] [facility] [address] [place], [place] [id number] Caitlin Avila NP [address] [place], [place] [phone] 06/05/2025 10:00 AM EST Appointment [facility] [place], [place] [phone] 06/05/2025 10:20 AM EST Appointment [facility] [place], [place] [phone] Gerry Bae MD [address] [place] [address] [phone] 06/05/2025 11:00 AM EST Appointment [facility] [place], [place] [phone] 07/02/2025 1:00 PM EST Office Visit [facility] Nephrology [address] [address] Nafisa Stringer MD [address] [place] [phone] documented as of this encounter Goals Goal Patient Goal Type Associated Problems Recent Progress Patient-Stated? Author Knowledge Deficit General No Margaret Dickinson APRN Note: Chemotherapy education provided and reviewed. documented as of this encounter Procedures Procedure Name Priority Date/Time Associated Diagnosis Comments SERUM PROTEIN ELECTROPHORESIS WITH REFLEX Routine 04/10/2025 10:18 AM EDT Multiple myeloma not having achieved remission (HCC) KAPPA/LAMBDA FREE LIGHT CHAINS Routine 04/10/2025 10:18 AM EDT Multiple myeloma not having achieved remission (HCC) CBC WITH DIFF STAT 04/10/2025 10:18 AM EDT Multiple myeloma not having achieved remission (HCC) IGA Routine 04/10/2025 10:18 AM EDT Multiple myeloma not having achieved remission (HCC) IGM Routine 04/10/2025 10:18 AM EDT Multiple myeloma not having achieved remission (HCC) IGG Routine 04/10/2025 10:18 AM EDT Multiple myeloma not having achieved remission (HCC) COMPREHENSIVE METABOLIC PANEL STAT 04/10/2025 10:18 AM EDT Multiple myeloma not having achieved remission (HCC) documented in this encounter Results * (ABNORMAL) SERUM PROTEIN ELECTROPHORESIS WITH REFLEX (04/10/2025 10:18 AM EDT) Albumin SPE 3.9 3.1 - 5.0 gm/dL 04/11/2025 1:21 PM EDT [facility] Alpha 1 Globulin 0.4(H) 0.1 - 0.3 gm/dL 04/11/2025 1:21 PM EDT [facility] Alpha 2 Globulin 0.8 0.5 - 1.0 gm/dL 04/11/2025 1:21 PM EDT [facility] Beta Globulin 0.8 0.5 - 1.4 gm/dL 04/11/2025 1:21 PM EDT [facility] Gamma Globulin KELVIN 0.4(L) 0.6 - 1.6 gm/dL 04/11/2025 1:21 PM EDT [facility] Total Protein 5.8(L) 6.4 - 8.3 gm/dL 04/11/2025 1:21 PM EDT [facility] SPE/IT Interp M-protein not apparent on serum protein electrophore sis. Reduced gamma fraction. This test has been reviewed and approved by Leonel Nicole MD, KENJI. 04/11/2025 1:21 PM EDT [facility] Blood VENOUS STRUCTURE / Unknown Port / Unknown 04/10/2025 10:18 AM EDT 04/10/2025 10:21 AM EDT Diane Nieves APRN IMMUNOLOGY ORDERABLES Final Re sult [facility] [address] [facility] , [address] [place] [id number] * (ABNORMAL) KAPPA/LAMBDA FREE LIGHT CHAINS (04/10/2025 10:18 AM EDT) [place]ffe Free Light Chains 5.51 3.30 - 19.40 mg/L 04/10/2025 3:43 PM EDT [facility] Lambda Free Light Chains 3.41(L) 5.70 - 26.30 mg/L 04/10/2025 3:43 PM EDT [facility] Fyffe/Lambda FLC Ratio 1.62 0.26 - 1.65 04/10/2025 3:43 PM EDT [facility] Blood VENOUS STRUCTURE / Unknown Port / Unknown 04/10/2025 10:18 AM EDT 04/10/2025 10:21 AM EDT Diane Nieves APRN CHEMISTRY ORDERABLES Final Res ult Performing Organization Address [facility]/Va Hospital/ZIP Co de Phone Number [facility] [address] [facility] , [place] [address] * (ABNORMAL) IGM (04/10/2025 10:18 AM EDT) IgM <25(L) 40 - 230 mg/dL 04/10/2025 1:04 PM EDT [facility] Blood VENOUS STRUCTURE / Unknown Port / Unknown 04/10/2025 10:18 AM EDT 04/10/2025 10:21 AM EDT Diane Nieves APRN IMMUNOLOGY ORDERABLES Final Re sult Performing Organization Address City/[facility] Hospital/ZIP Co de Phone Number [facility] [address] [facility] , [place] [address] * (ABNORMAL) IGG (04/10/2025 10:18 AM EDT) IgG 468(L) 700 - 1,600 mg/dL 04/10/2025 1:04 PM EDT [facility] Blood VENOUS STRUCTURE / Unknown Port / Unknown 04/10/2025 10:18 AM EDT 04/10/2025 10:21 AM EDT Diane Nieves APRN IMMUNOLOGY ORDERABLES Final Re sult [facility] [address] [facility] , [address] [place] [phone] * (ABNORMAL) IGA (04/10/2025 10:18 AM EDT) Pathologist [facility] IgA <50(L) 70 - 400 mg/dL 04/10/2025 1:04 PM EDT [facility] Blood VENOUS STRUCTURE / Unknown Port / Unknown 04/10/2025 10:18 AM EDT 04/10/2025 10:21 AM EDT Diane Nieves APRN IMMUNOLOGY ORDERABLES Final Re sult [facility] [address] [facility] , [place] [address] * (ABNORMAL) COMPREHENSIVE METABOLIC PANEL (04/10/2025 10:18 AM EDT) Pathologist [facility] Sodium 139 136 - 145 mmol/L 04/10/2025 10:48 AM EDT [facility] Potassium 4.3 3.5 - 5.0 mmol/L 04/10/2025 10:48 AM EDT [facility] Chloride 102 98 - 107 mmol/L 04/10/2025 10:48 AM EDT [facility] Total CO2 25 22 - 29 mmol/L 04/10/2025 10:48 AM EDT [facility] Anion Gap 12 7 - 16 mmol/L 04/10/2025 10:48 AM EDT [facility] Calcium 9.6 8.8 - 10.4 mg/dL 04/10/2025 10:48 AM EDT [facility] Glucose Lvl 102(H) 70 - 99 mg/dL 04/10/2025 10:48 AM EDT [facility] BUN 20 8 - 23 mg/dL 04/10/2025 10:48 AM EDT [facility] Creatinine 1.37(H) 0.51 - 1.30 mg/dL 04/10/2025 10:48 AM EDT [facility] Albumin 3.9 3.2 - 4.6 gm/dL 04/10/2025 10:48 AM EDT [facility] Total Protein 6.3(L) 6.4 - 8.3 gm/dL 04/10/2025 10:48 AM EDT [facility] Bili Total 0.5 0.2 - 1.3 mg/dL 04/10/2025 10:48 AM EDT [facility] ALT 16 <=41 U/L 04/10/2025 10:48 AM EDT [facility] AST 21 <=40 U/L 04/10/2025 10:48 AM EDT [facility] Alk Phos 72 36 - 123 U/L 04/10/2025 10:48 AM EDT [facility] eGFR (CKD-EPIcr 2020) 41(L) >=60 mL/min/1.7 3 m2 04/10/2025 10:48 AM EDT [facility] Comment:Estimated GFR was ca lculated using the CKD-EPIcr (2020) equation refit without race. The equation is recommended by the National Kidney Foundation - [place] [employer] of Nephrology Task Force. Blood VENOUS STRUCTURE / Unknown Port / Unknown 04/10/2025 10:18 AM EDT 04/10/2025 10:21 AM EDT us Diane Nieves [employer]OP[employer] EXECUTIVE CHEMISTRY ORDERABLES Final Res ult [facility] [address] [place] [address] * (ABNORMAL) CBC WITH DIFF (04/10/2025 10:18 AM EDT) [facility] Signature WBC 5.9 3.7 - 10.3 x10(3)/mc L 04/10/2025 10:31 AM EDT [facility] RBC 3.81(L) 3.90 - 5.20 x10(6)/mc L 04/10/2025 10:31 AM EDT [facility] Hgb 12.6 11.2 - 15.7 g/dL 04/10/2025 10:31 AM EDT [facility] Hct 37.3 34.0 - 45.0 % 04/10/2025 10:31 AM EDT [facility] MCV 97.9 80.0 - 100.0 fL 04/10/2025 10:[facility] MCH 33.1 26.0 - 34.0 pg 04/10/2025 10:31 AM [facility] MCHC 33.8 30.7 - 35.5 g/dL 04/10/2025 10:31 AM EDT [facility] RDW 12.8 <=14.9 % 04/10/2025 10:[facility] Platelet 207 155 - 369 x10(3)/mc L 04/10/2025 10:31 AM EDT [facility] MPV 9.8 8.8 - 12.5 fL 04/10/2025 10:31 AM [facility] Neut # Prelim 4.7 1.6 - 6.1 x10(3)/mc L 04/10/2025 10:31 AM T [facility] Comment:Preliminary automate d absolute neutrophil count. Value may change if manual differential is indicated. Neut Percent 79.6 % 04/10/2025 10:31 AM T [facility] Comment:Neutrophils equals s egs plus bands Imm Gran% 0.2 % 04/10/2025 10:31 AM [facility] Comment:Automated count of m etamyelocytes, myelocytes and promyelocytes. Lymph Percent 9.9 % 04/10/2025 10:31 AM EDT [facility] [place] Percent 6.1 % 04/10/2025 10:31 AM EDT [facility] Eos Percent 3.4 % 04/10/2025 10:31 AM EDT [facility] Baso Percent 0.8 % 04/10/2025 10:31 AM EDT [facility] Neut # 4.7 1.6 - 6.1 x10(3)/mc L 04/10/2025 10:31 AM EDT [facility] Comment:Neutrophils equals s egs plus bands IMMGRAN# 0.0 0.0 - 0.1 x10(3)/mc L 04/10/2025 10:31 AM EDT [facility] Comment:Automated count of m etamyelocytes, myelocytes and promyelocytes. An absolute IG <0.1 is reported as 0.0. Lymph # 0.6(L) 1.2 - 3.9 x10(3)/mc L 04/10/2025 10:31 AM EDT [facility] [place] # 0.4 0.3 - 0.9 x10(3)/mc L 04/10/2025 10:31 AM EDT [facility] Eos# 0.2 0.0 - 0.5 x10(3)/mc L 04/10/2025 10:31 AM EDT [facility] Baso # 0.1 0.0 - 0.1 x10(3)/mc L 04/10/2025 10:31 AM EDT [facility] Blood VENOUS STRUCTURE / Unknown Port / Unknown 04/10/2025 10:18 AM EDT 04/10/2025 10:21 AM EDT us Diane Nieves APRN HEMATOLOGY ORDERABLES Final Re sult [facility] [address] [place] [address] documented in this encounter Visit Diagnoses Diagnosis Multiple myeloma not having achieved remission (HCC)- Primary Multiple myeloma, without mention of having achieved remission documented in this encounter Administered Medications Inactive Administered Medications - up to 1 most recent administrations Medication Order MAR Action Action Date Dose Rate Site sodium chloride 0.9 % sterile syringe 10 mL 10 mL, Intravenous, ONCE, 1 dose, On 04/10/25 at 1015, For initial access of Venous Access Device., Dx: 1. Multiple myeloma not having achieved remission (HCC)Indications:Multiple myeloma not having achieved remission (HCC) Given 04/10/2025 10:20 AM EDT 10 mL documented in this encounter Care Teams Charter Driver Relationship Specialty Start Date End Date Laureano Marin MD [address] [place] [address] [place] [phone] PCP - General Family Medicine 07/09/22 Gerry Bae MD [address] [facility] [place] [address] Medical Oncologist Internal Medicine-Hematology and Oncology 07/20/22 Ciara Valencia, FANY Registered Nurse Infusion Therapy 04/10/25 04/10/25 documented as of this encounter
--- OUTSIDE RECORDS SUMMARY | 2025-04-10 09:20 | XMS_ITS | Encounter Summary ---
Author [place] [address] Care Team Providers Care Auto Motor Mechanic Name Role Phone Laureano Marin MD Primary Care Provider + [phone] Gerry Bae MD Unavailable [phone] Ciara Valencia RN Unavailable Unavailable Reason for Visit * Reason Comments Follow-up Multiple Myeloma Multiple myeloma not having achieved remission Chemotherapy Darzalex Faspro(Zome ta Q4W/ IVIG q8 weeks due) Encounter Details Date Type Department Care Team (Latest Contact Info) Description 04/10/2025 10:20 AM EDT - 04/10/2025 10:48 AM EDT Hospital Encounter [facility] [place] [id number] Diane Nieves APRN [address] [place], [place] [id number] Multiple myeloma not having achieved remission (HCC) (Primary Dx); Encounter for monoclonal antibody treatment for malignancy; Stage 3b chronic kidney disease (HCC); Encounter for monitoring bisphosphonate therapy; Immunoglobulin deficiency; Port-A-Cath in place Discharge Disposition: Home or Self Care Social [...] Sign Reading Time Taken Comments Blood Pressure 126/64 04/10/2025 10:24 AM EDT Pulse 64 04/10/2025 10:24 AM EDT Temperature 37.1 C (98.8 F) 04/10/2025 10:24 AM EDT Respiratory Rate 17 04/10/2025 10:2 4 AM EDT Oxygen Saturation 97% 04/10/2025 10: 24 AM EDT Inhaled Oxygen Concentration - - Weight 126.4 kg (278 lb 11.2 oz) 2024 10:24 AM EDT Height 165.1 cm (5' 5 ) 04/10/2025 10:2 4 AM EDT Body Mass Index 46.38 04/10/2025 10:24 AM EDT documented in this encounter Medications at Time of Discharge [...] 11/22/2021 ONETOUCH DELICA PLUS LANCET 33 gauge Misc Misc 10/14/2022 ONETOUCH ULTRA TEST Mis Strip TEST BLOOD SUGAR ONCE A DAY [...] or Self Care documented in this encounter Progress Notes * Diane Nieves APRN - 04/10/2025 10:30 AM EDT Images from the original note were not included. Patient: Yudi Vasquez CSN: [id number] Date of : 1950 Age: 74 y.o. Date of Service: 04/10/2025 HEMATOLOGY/ONCOLOGY FOLLOW UP VISIT Primary Distance Learning Unit Leader & Oncologist: Gerry Bae MD DIAGNOSIS & TREATMENT HISTORY: Oncology History Overview Note Multiple myeloma, IgG Geiger Dx 06/2022. P/w UE pain. Imaging w/ pathologic b/l humerus fx, several bony lesions, pulmonary nodules, and exophytic kidney focuses. FDG avid bony lesions on PET. s/p ORIF w/ ppx R humerus nailing 07/14/22 and more recently s/p ORIF pp L humerus nailing 08/04/22, bx confirmed plasma cell neoplasm.SPEP w/ M-spike (2 g/dL IgG kappa) and abnormal sFLC ratio (1.85) Multiple myeloma (HCC) 08/02/2022 Initial Diagnosis Multiple myeloma (HCC) 08/24/2022 - 09/28/2022 Radiation Tx External beam radiotherapy to right and left humerus to a total of 2000 cGy. Delivered in 5 fractions. Primary Radiation Oncologist, Dr. Romero. Cancer Staging No matching staging information was found for the patient. CURRENT TREATMENT: Tereso-dex Monthly Zometa IVIG, now dosing every 2 months, due today INTERVAL HISTORY: Chief Complaint Patient presents with Follow-up Multiple Myeloma Multiple myeloma not having achieved remission Chemotherapy Darzalex Faspro (Zometa Q4W/ IVIG q8 weeks due) Yudi Vasquez is coming today for follow-up with myeloma. Feels well. No complaints. Denies recent infections. Denies change in bowel habits. Denies bleeding. No rash, fever or chills. Denies pain. Recent OV with kidney doctor. Denies change in urinary symptoms. REVIEW OF SYSTEMS: Review of Systems Constitutional: Positive for fatigue. Negative for chills and fever. Respiratory: Negative for cough and shortness of breath. Cardiovascular: Negative for chest pain. Gastrointestinal: Negative for abdominal pain and diarrhea. Musculoskeletal: Positive for arthralgias and myalgias. MEDICATIONS: Medications and allergies reviewed PHYSICAL EXAM: Vitals: 04/10/25 1024 BP: 126/64 Pulse: 64 Resp: 17 Temp: 98.8 ??F (37.1 ??C) SpO2: 97% Wt Readings from Last 2 Encounters: 04/10/25 278 lb 11.2 oz (126.4 kg) 04/02/25 277 lb 0.6 oz (125.7 kg) ECO Physical Exam Constitutional: Appearance: She is not ill-appearing. Cardiovascular: Rate and Rhythm: Normal rate. Pulmonary: Effort: Pulmonary effort is normal. Abdominal: General: There is no distension. Musculoskeletal: General: No swelling. Neurological: Mental Status: She is alert and oriented to person, place, and time. MEDICAL DATA REVIEW: Laboratories, Images and Pathology results reviewed ASSESSMENT & PLAN Yudi was seen today for follow-up, multiple myeloma and chemotherapy. Diagnoses and all orders for this visit: Multiple myeloma not having achieved remission (HCC) Encounter for monoclonal antibody treatment for malignancy Stage 3b chronic kidney disease (HCC) Encounter for monitoring bisphosphonate therapy Immunoglobulin deficiency Port-A-Cath in place Other orders - 0.9 % NaCl infusion - Cancel: dexAMETHasone (DECADRON) tablet 40 mg - prochlorperazine edisylate (COMPAZINE) injection 10 mg - prochlorperazine (COMPAZINE) tablet 10 mg - Cancel: vjuuxaujcbp-fnmeoluyaiyqw-kneg (DARZALEX FASPRO) 1,800 mg-30,000 unit/15 mL injection 1,800 mg - Cancel: sodium chloride 0.9% syringe 10 mL - alteplase (ACTIVASE) 1 mg in sterile water 2 mL injection - Cancel: heparin flush 100 unit/mL injection 500 Units - diphenhydrAMINE (BENADRYL) injection 50 mg - methylPREDNISolone sodium succinate (Solu-MEDROL) injection 125 mg - famotidine (PEPCID) injection 20 mg - albuterol (PROVENTIL HFA;VENTOLIN HFA) inhaler 1-2 Puff - 0.9 % NaCl infusion - EPINEPHrine injection 0.3 mg Multiple myeloma, IgG Geiger Dx 06/2022. P/w UE pain. Imaging w/ pathologic b/l humerus fx, several bony lesions, pulmonary nodules, and exophytic kidney focuses. FDG avid bony lesions on PET. s/p ORIF w/ ppx R humerus nailing 07/14/22 and s/p ORIF pp L humerus nailing 08/04/22, bx confirmed plasma cell neoplasm. SPEP w/ M-spike (2 g/dL IgG kappa) and abnormal sFLC ratio (1.85). BMBx w/ ~30% plasma cells. iFISH +Tp53 mutation. Normal karotype. -- elected to proceed w/ tereso-RD. Tereso-dex (@ 20 mg wkly) started 08/17/22. Completed palliative, post XRT 08/31/22. -- added revlimid (10 mg daily D1-21 of 28 day cycle) and zometa with C2. Follow-up PET/CT (08/09/24) was also improved (significant decrease in uptake along humeri, residual uptake likely 2/2 surgical hardware, no new areas of concern). -- no significant clinical changes. Holding revlimid w/ SCCa. Continue to monitor on Daratumumab and Zometa (at dose reduction given renal dysfunction). Repeat MM labs pending. If any concern for progression, would likely add PI (velcade). 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 Given ongoing IgG at/above goal, we have prior de-escalated to q2 month dosing (will receive today). Cutaneous SCCa S/p wide local excision, R sentinel lymph node biopsy tail of parotid, R superficial parotidectomy with facial nerve preservation, R selective neck dissection (levels II-III) and cervicofacial advancement flap on 09/07/2024 (pT2N1). Decided not to proceed w/ adjuvant radiotherapy. Following w/ Dermat ology (Dr. Farmer), ENT (Dr. Alvarado). CKD3 Labs reviewed, overall stable. Established with Nephrology OA Admitted 12/27/22 w/ severe pain. Imaging w/ advanced OA, small effusion/guzmán's cyst. Orthopedics c/s, s/p steroid injection. Controlled. Continue to monitor. DM2 A1c 5.8% (08/2022). On oral hypoglycemics. IV access PAC placed via IR 07/29/22. Advance Directives: Power of Mold Changer: Not Received ADVANCE DIRECTIVE: Not Received Code Status: Needs Addressed - Prior Hx Available Dispo: Return in about 4 weeks (around 05/08/2025) for BHAVYA OV, TREATMENT, LAB APT, Proceed w/ scheduled tx (orders signed). Thank you for the opportunity to assist in the care of this patient, please feel free to contact meif I can be of any assistance. 37 mins spent on chart review, direct patient care, coordination of care today Diane Nieves APRN Hematology and Medical Oncology [facility] documented in this encounter Plan of Treatment Upcoming Encounters Date Type Department Care Team (Late st Contact Info) Description 06/01/2025 1:45 PM EST [facility] [address] [place] [address] Caitlin Avila NP [address] [place] [address] 06/05/2025 10:00 AM EST Appointment [facility] [place], [place] [id number] 06/05/2025 10:20 AM EST [facility]ment [facility] [place] [address] Gerry Bae MD [address] [facility] [place], [place] [id number] 06/05/2025 11:00 AM EST Appointment [facility] [place], [place] [id number] 07/02/2025 1:00 PM EST Office Visit [facility] Nephrology [address] [place] [address] Nafisa Stringer MD [address] [place] [address] documented as of this encounter Goals Goal Patient Goal Type Associated Problems Recent Progress Patient-Stated? Author Knowledge Deficit General No Margaret Dickinson APRN Note: Chemotherapy education provided and reviewed. 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
--- OUTSIDE RECORDS SUMMARY | 2025-04-10 09:49 | XMS_ITS | Encounter Summary ---
Author Organization [place] [address] Care Team Providers Care Hooker Operator Name Role Phone Laureano Marin MD Primary Care Provider + [phone] Gerry Bae MD Unavailable [phone] Ciara Valencia RN Unavailable Unavailable Reason for Visit * Oncology Medication Prior Authorization (Routine) - Authorized Specialty Diagnoses / Procedures Referred By Star hi Referred To Contact Oncology Diagnoses Multiple myeloma not having achieved remission (HCC) Procedures ONCOLOGY MEDICATION AUTHORIZATION Gerry Bae MD [address] [place] [address] Phone: tel: fax: [place] [address] Phone: tel: fax: Referral ID Status Reason Start Date Expiration Date V isits Requested Visits Authorized [id number] Authorized 08/02/2022 07/11/2025 45 45 Encounter Details Date Type Department Care Team (Latest Contact Info) Description 04/10/2025 10:49 AM EDT - 04/10/2025 11:59 PM EDT Hospital Encounter [place] [address] Multiple myeloma not having achieved [...] Sign Reading Time Taken Comments Blood Pressure 127/63 04/10/2025 2:13 PM EDT Pulse 63 04/10/2025 2:13 PM EDT Temperature - - Respiratory Rate 16 04/10/2025 2:13 PM EDT Oxygen Saturation - - Inhaled Oxygen Concentration - - Weight - - Height - - Body Mass Index - - documented in this encounter Medications at Time [...] or Self Care documented in this encounter Miscellaneous Notes * Patient Instructions - Ciara Valencia RN - 04/10/2025 11:30 AM EDT [facility] Discharge Instructions Thank you for entrusting the [facility] with your care. We hope you are pleased with your outpatient care and services. Because we are most concerned with your health, we suggest you carefully read the following discharge instructions: Your Discharge Instructions: MEDICATION INSTRUCTIONS: Treatment received today: Orders Placed This Encounter dexAMETHasone (DECADRON) tablet 40 mg dsqmlijncaj-akphvtegkytwm-jcij (DARZALEX FASPRO) 1,800 mg-30,000 unit/15 mL injection 1,800 mg sodium chloride 0.9% syringe 10 mL heparin flush 100 unit/mL injection 500 Units zoledronic acid (ZOMETA) 3 mg in dextrose 5% 100 mL IVPB 0.9 % NaCl infusion acetaminophen (TYLENOL) tablet 650 mg diphenhydrAMINE (BENADRYL) tablet 25 mg immune globulin (human) (GAMMAGARD liquid, IVIG) 10 % injection 30 g Reviewed medications administered today and possible side effects Dizziness and sleepiness are possible side effects of pain medication. When taking pain medications, do not drink alcohol or drive. ACTIVITY INSTRUCTIONS: Rest today, increase activity as tolerated. DIET INSTRUCTIONS: Resume home diet FOLLOW-UP CARE: Call your doctor for a follow-up appointment: Notify physician for complications such as: Fever over 101*, Rash, Hives, difficulty breathing, unrelieved nausea or pain, redness or swelling in one limb greater than the other, constipation, diarrhea, bleeding Please contact your physician if you have problems related to your procedure or if symptoms persistor worsen. If physician is unavailable, go to the Emergency Room. If you develop any of the following : nausea, vomiting, fatigue, fever of 100.4 or higher, diarrhea, pain or any signs or symptoms of infection DON'T WAIT, PLEASE CALL US FIRST [phone]. [FOR URGENT ISSUES PLEASE DO NOT LEAVE A MESSAGE, FOLLOW PROMPTS TO THE DOCTOR GRAVITY PROSPECTING OBSERVER] For Gynecology / Oncology call : [phone] Our hours of operation are Wednesday - Wednesday 8:00 AM - 4:30 PM. [facility] [address] [place] [address] 552 [phone] [address] Results for orders placed or performed during the hospital encounter of 04/10/25 CBC WITH DIFF Result Value Ref Range WBC 5.9 3.7 - 10.3 x10(3)/mcL RBC 3.81 (L) 3.90 - 5.20 x10(6)/mcL Hgb 12.6 11.2 - 15.7 g/dL Hct 37.3 34.0 - 45.0 % MCV 97.9 80.0 - 100.0 fL MCH 33.1 26.0 - 34.0 pg MCHC 33.8 30.7 - 35.5 g/dL RDW 12.8 <=14.9 % Platelet 207 155 - 369 x10(3)/mcL MPV 9.8 8.8 - 12.5 fL Neut # Prelim 4.7 1.6 - 6.1 x10(3)/mcL Neut Percent 79.6 % Imm Gran% 0.2 % Lymph Percent 9.9 % [place] Percent 6.1 % Eos Percent 3.4 % Baso Percent 0.8 % Neut # 4.7 1.6 - 6.1 x10(3)/mcL IMMGRAN# 0.0 0.0 - 0.1 x10(3)/mcL Lymph # 0.6 (L) 1.2 - 3.9 x10(3)/mcL [place] # 0.4 0.3 - 0.9 x10(3)/mcL Eos# 0.2 0.0 - 0.5 x10(3)/mcL Baso # 0.1 0.0 - 0.1 x10(3)/mcL COMPREHENSIVE METABOLIC PANEL Result Value Ref Range Sodium 139 136 - 145 mmol/L Potassium 4.3 3.5 - 5.0 mmol/L Chloride 102 98 - 107 mmol/L Total CO2 25 22 - 29 mmol/L Anion Gap 12 7 - 16 mmol/L Calcium 9.6 8.8 - 10.4 mg/dL Glucose Lvl 102 (H) 70 - 99 mg/dL BUN 20 8 - 23 mg/dL Creatinine 1.37 (H) 0.51 - 1.30 mg/dL Albumin 3.9 3.2 - 4.6 gm/dL Total Protein 6.3 (L) 6.4 - 8.3 gm/dL Bili Total 0.5 0.2 - 1.3 mg/dL ALT 16 <=41 U/L AST 21 <=40 U/L Alk Phos 72 36 - 123 U/L eGFR (CKD-EPIcr 2020) 41 (L) >=60 mL/min/1.73 m2 documented in this encounter Plan of Treatment Upcoming Encounters Date Type Department Care Team (Late st Contact Info) Description 06/01/2025 1:45 PM EST Office Visit [facility] [address] [facility] [address] [place] [address] Caitlin Avila, TRINA [address] [place] [address] 06/05/2025 10:00 AM EST Appointment [facility] [place], [place] [phone] 06/05/2025 10:20 AM EST Appointment [facility] [place], [place] [phone] Gerry Bae MD [address] [place] [phone] 06/05/2025 11:00 AM EST Appointment [facility] [place] [place] [address] 07/02/2025 1:00 PM EST Office Visit [facility] Nephrology [address] [place] [address] Nafisa Stringer MD [address] [place] [address] documented as of this encounter Goals Goal [...] MAR Action Action Date Dose Rate Site 0.9 % NaCl infusion Intravenous, at 30 mL/hr, CONTINUOUS, Starting on Wed04/10/25 at 1100, Until Wed04/11/25 at 0413, For online retailer during infusion., Dx: 1. Multiple myeloma not having achieved remission (HCC)Indications:Multip le myeloma not having achieved remission (HCC) New Bag 04/10/2025 11:13 AM EDT 30 mL/hr acetaminophen (TYLENOL) tablet 650 mg 650 mg, Oral, ONCE, 1 dose, On Wed04/10/25 at 1100, Pre-med. Give 30 minutes prior to IVIG. Maximum adult dose of acetaminophen is 4000 mg from all sources in 24 hours., Dx: 1. Multiple myeloma not having achieved remission (HCC)Indications:Multip le myeloma not having achieved remission (HCC) Given 04/10/2025 11:10 AM EDT 650 mg daratumumab-hyaluronida se-fihj (DARZALEX FASPRO) 1,800 mg-30,000 unit/15 mL injection 1,800 mg 1,800 mg, Subcutaneous, ONCE, 1 dose, On Wed04/10/25 at 1200, +++ Caution: CHEMOTHERAPEUTIC AGENT +++ Administer subcut over 3 to 5 minutes. Inject into the abdomen, approximiately 3 inches from the navel. Pause or slow delivery if patient experiences pain. Do not administer other products at the same site., Dx: 1. Multiple myeloma not having achieved remission (HCC)Indications:Multip le myeloma not having achieved remission (HCC) Given 04/10/2025 2:03 PM EDT 1,800 mg Abdominal Tissue dexAMETHasone (DECADRON) tablet 40 mg 40 mg, Oral, ONCE, 1 dose, On Wed04/10/25 at 1100, Dx: 1. Multiple myeloma not having achieved remission (HCC)Indications:Multip le myeloma not having achieved remission (HCC) Given 04/10/2025 11:10 AM EDT 40 mg diphenhydrAMINE (BENADRYL) tablet 25 mg 25 mg, Oral, ONCE, 1 dose, On Wed04/10/25 at 1100, Pre-med. Give 30 minutes prior to IVIG., Dx: 1. Multiple myeloma not having achieved remission (HCC)Indications:Multip le myeloma not having achieved remission (HCC) Given 04/10/2025 11:10 AM EDT 25 mg heparin flush 100 unit/mL injection 500 Units 500 Units, Intravenous, PRN, Starting on Wed04/10/25 at 1051, Until Wed04/11/25 at 0413, Line Care, For Venous Access Device care and maintenance., Dx: 1. Multiple myeloma not having achieved remission (HCC)Indications:Multip le myeloma not having achieved remission (HCC) Given 04/10/2025 2:01 PM EDT 500 Units immune globulin (human) (GAMMAGARD liquid, IVIG) 10 % injection 30 g 30 g, Intravenous, at 60-600 mL/hr, ONCE, 1 dose, On Wed04/10/25 at 1130, 0.5ml/kg/hr (60 mL/hr) for 30 minutes; increase by 0.5 ml/kg/hr (60 mL/hr) every 30 minutes to max of 5 ml/kg/hr (600 mL/hr). Monitor vital signs every 15 minutes for the first hour, then every 30 minutes for all subsequent rate increases. Once at the max rate monitor vials every hour until completion of the infusion. Slow or stop the infusion if adverse reactions occur. IVIG dosing should be IBW or AdjBW (if BMI > 30 or Actual Body Weight > 120% of IBW). Titration instructions should be calculated using actual body weight. Monitor vital signs every 15 minutes for the first hour, then every 30 minutes for all subsequent rate increases. Once at the max rate monitor vials every hour until completion of the infusion. Slow or stop the infusion if adverse reactions occur., Administer over 3 Hours, Dx: 1. Multiple myeloma not having achieved remission (HCC)Indications:Multip le myeloma not having achieved remission (HCC) Rate/Dose Change 04/10/2025 1:30 PM EDT 240 mL/hr sodium chloride 0.9% syringe 10 mL 10 mL, Intravenous, PRN, Starting on Wed04/10/25 at 1051, Until Wed04/11/25 at 0413, Line Care, For Venous Access Device care and maintenance., Dx: 1. Multiple myeloma not having achieved remission (HCC)Indications:Multip le myeloma not having achieved remission (HCC) Given 04/10/2025 2:01 PM EDT 10 mL zoledronic acid (ZOMETA) 3 mg in dextrose 5% 100 mL IVPB 3 mg, Intravenous, ONCE, 1 dose, On Wed04/10/25 at 1100, Administer over 20 Minutes, Dx: 1. Multiple myeloma not having achieved remission (HCC)Indications:Multip le myeloma not having achieved remission (HCC) Rate/Dose Verify 04/10/2025 11:30 AM EDT 300 mL/hr documented in this encounter Care Teams Hooker Operator Relationship Specialty Start Date End Date Laureano Marin MD [address] [place] [address] [place] [phone] PCP - General Family Medicine 07/09/22 Gerry Bae MD 1 [facility] [place], [place] [address] Medical Oncologist Internal Medicine-Hematology and Oncology 07/20/22 Ciara Valencia, FANY Registered Nurse Infusion Therapy 04/10/25 04/10/25 documented as of this encounter
--- OUTSIDE RECORDS SUMMARY | 2025-04-17 10:15 | XMS_ITS | Encounter Summary ---
Author Organization [facility] Address [address] [place] [address] Care Team Providers Care Forest Pathologist Name Role Phone Laureano Marin MD Primary Care Provider + [phone] Gerry Bae MD Unavailable [phone] Reason for Visit * Reason Comments Pain Encounter Details Date Type Department Care Team (Late st Contact Info) Description 04/17/2025 11:15 AM EDT Office Visit [facility] [address] [place], [place] [id number] Liliam Mc, COMBINATION TECHNICIAN [address] [address] Plantar fasciitis of left foot (Primary Dx); Left foot pain Social History Tobacco Use Types Packs/Day Years [...] on file documented as of this encounter Ordered Prescriptions Prescription Sig Dispense Quantity Refills Last Filled Start Date End Date methylPREDNISolone (MEDROL DOSPACK) 4 mg Oral Tablets, Dose PackIndications:Le ft foot pain,Plantar fasciitis of left foot Follow package directions 21 Tablet 04/17/2025 documented in this encounter Progress Notes * Liliam Mc, COMBINATION TECHNICIAN - 04/17/2025 11:15 AM EDT Images from the original note were not included. DATE OF VISIT: 04/17/2025 PATIENT NAME: Yudi Vasquez AGE: 74 y.o. SEX: female CHIEF COMPLAINT Chief Complaint Patient presents with Left Foot - Pain HPI Yudi Vasquez is a 74 y.o. female who presents to orthopedic urgent care for evaluation of left foot pain. She has been dealing with pain in this left foot over the last month. She denies any specific injury. Her pain is located at the heel and is worse first thing in the morning. She tells me that she does not have any pain at rest, but notices pain with walking or when riding in a car and getting out of. She previously had a similar pain, was diagnosed with a bone spur, and treated her pain with orth otics. A couple of months ago, she stopped wearing these orthotics and transition to use a pair of sketchers. She did resume the use of her orthotics just yesterday evening. She also reports previously that she had steroid injections in this heel done [address] Mendoza. She is currently in junior atment for cancer, and is limited to Tylenol for pain. She did reach out to her treating provider and got a verbal okay for steroids if indicated for this pain. She does also mention a corn on the bottom of her right foot near the small toe. SOCIAL HISTORY Social History Occupational History Not on file Tobacco Use Smoking status: Never Smokeless tobacco: Never Vaping Use Vaping status: Never Used Substance and Sexual Activity Alcohol use: Never Drug use: Never Sexual activity: Not on file PAST MEDICAL HISTORY Past Medical History[1] CURRENT MEDICATIONS Current Medications[2] PHYSICAL EXAM General: Well appearing with appropriate affect. No acute distress. Head/Neck: Normocephalic. Range of motion of the neck easy without discomfort. Skin: Skin warm and dry. Color natural. Neuro: Alert and oriented to person, place, and time. Normal neurosensory response to touch. Pulmonary: Chest expansion appears symmetric and unlabored. Cardiovascular: No signs of peripheral edema. Lymphatic: No signs of lymphangitis. Gait: Walks with a non-antalgic gait. Musculoskeletal: Left FOOT: No swelling or ecchymosis. No effusion, masses, or gross deformity. Skin intact. Full ankle ROM. Normal hindfoot ROM. No plantar ecchymosis. Tenderness to palpation over the heel. No tenderness to palpation over the midfoot and forefoot. Negative calcaneal squeeze. Pedalpulses palpable. Sensation intact. Brisk capillary refill. IMAGING X-rays 3 Views left foot: Preserved articulation and alignment of the tarsal, metatarsal or phalangeal bones. Degenerative changes throughout. Chronic calcaneal bone spur. No obvious acute osseous abnormality is identified. ASSESSMENT left plantar fasciitis PLAN I discussed the case with the patient and reviewed treatment options. Recommend that the patient resume the use of her orthotics. Prescribed Medrol Dosepack today. Patient was instructed on the safe use of this, particularly to follow the package instructions and to avoid oral NSAIDs while taking this medication. Tylenol over the counter, as needed, as directed on the bottle, not to exceed 3000 mg per day. Patient was given a handout with stretching exercises to be completed in the morning before she starts her day. Patient will follow up with one of our foot/ankle providers in 2 weeks for reevaluation and furthermanagement or sooner if symptoms worsen. The patient was in agreement with the treatment plan. DME Summary No orders found for display Liliam Mc APRN [1] Past Medical History: Diagnosis Date Anxiety Arthritis Bone cancer (HCC) Cancer (HCC) Cataract Chronic kidney disease 3b Depression Diabetes mellitus (HCC) GERD (gastroesophageal reflux disease) Hypertension Kidney disease Neuropathy [2] Current Outpatient Medications: allopurinoL (ZYLOPRIM) 300 mg Oral Tablet, Take 300 mg by mouth every other day., Disp: , Rfl: aspirin 81 mg Oral Tablet, Delayed Release (E.C.), Take 81 mg by mouth daily., Disp: , Rfl: calcium carbonate-vitamin D (OYSTER SHELL CALCIUM-VIT D3) 500 mg-5 mcg (200 unit) Oral Tablet, Take1 Tablet by mouth 2 times daily (with meals)., Disp: 60 Tablet, Rfl: 11 cetirizine (ZYRTEC) 10 mg Oral Tablet, TAKE 1 TABLET BY MOUTH DAILY NEEDED FOR ALLERGY SYMPTOMS (Patient not taking: Reported on 02/13/2025), Disp: , Rfl: citalopram (CELEXA) 20 mg Oral Tablet, Take 20 mg by mouth daily., Disp: , Rfl: fUROsemide (LASIX) 20 mg Oral Tablet, Take 1 Tablet by mouth every 48 hours., Disp: , Rfl: gabapentin (NEURONTIN) 600 mg Oral Tablet, Take 600 mg by mouth 2 times daily., Disp: , Rfl: JANUVIA 100 mg Oral Tablet, , Disp: , Rfl: lidocaine-prilocaine (EMLA) Top Cream, Apply one nickel sized glob over port approx 30 minutes before appt. DO NOT RUB IN. Cover with plastic wrap, Disp: 30 g, Rfl: 2 methylPREDNISolone (MEDROL DOSPACK) 4 mg Oral Tablets, Dose Pack, Follow package directions, Disp: 21 Tablet, Rfl: 0 metoprolol (LOPRESSOR) 50 mg Oral Tablet, Take 50 mg by mouth 2 times daily., Disp: , Rfl: multivit-min/iron/folic/lutein (CENTRUM SILVER WOMEN ORAL), Take 1 Tablet by mouth daily., Disp: , Rfl: mupirocin (BACTROBAN) 2 % Top Ointment, Apply BID to the affected areas on the right forearm and fingers until fully healed., Disp: 30 g, Rfl: 0 omeprazole (PRILOSEC) 40 mg Oral Capsule, Delayed Release(E.C.), Take 40 mg by mouth daily., Disp: , Rfl: ONETOUCH DELICA PLUS LANCET 33 gauge Misc Misc, , Disp: , Rfl: ONETOUCH ULTRA TEST Misc Strip, TEST BLOOD SUGAR ONCE A DAY, Disp: , Rfl: potassium chloride (KLOR-CON M) 20 mEq Oral Tab Sust.Rel. Particle/Crystal, Take 1 Tablet by mouth daily., Disp: 30 Tablet, Rfl: 3 triamterene-hydrochlorothiazide (MAXZIDE-25) 37.5-25 mg Oral Tablet, Take 1 Tablet by mouth daily.,Disp: , Rfl: valACYclovir (VALTREX) 500 mg Oral Tablet, Take 1 Tablet by mouth every 12 hours., Disp: 60 Tablet,Rfl: 3 documented in this encounter Plan of Treatment Upcoming Encounters Date Type Department Care Team (Late st Contact Info) Description 06/01/2025 1:45 PM EST Office Visit [facility] Aurelia [address] [address] Caitlin Avila, TRINA [address] [place] [address] 06/05/2025 10:00 AM EST Appointment [facility] [place], [place] [id number] 06/05/2025 10:20 AM EST [facility]ointment [facility] [place], [place] [phone] Gerry Bae MD [address] [place] [id number] 06/05/2025 11:00 AM EST Appointment [facility] [place] [address] 07/02/2025 1:00 PM EST Office Visit [facility] Nephrology [address] [address] Nafisa Stringer MD [address] [place] [address] documented as of this encounter Goals Goal Patient Goal Type Associated Problems Recent Progress Patient-Stated? Author Knowledge Deficit General No Margaret Dickinson APRN Note: Chemotherapy education provided and reviewed. documented as of this encounter Results * XR ANKLE LEFT AP LATERAL AND OBLIQUE INCLUDING STANDING (04/17/2025 11:35 AM EDT) Narrative Lopez Ovalle - 04/17/2025 11:35 AM EDT Please see physician's note from office encounter for x-ray imaging result us Liliam Mc APRN IMG DIAGNOSTIC IMAGING ORDE RABLES Final Result * XR FOOT LEFT AP LATERAL AND OBLIQUE STANDING (04/17/2025 11:35 AM EDT) Narrative Lopez Ovalle - 04/17/2025 11:35 AM EDT Please see physician's note from office encounter for x-ray imaging result Liliam cM COMBINATION TECHNICIAN IMG DIAGNOSTIC IMAGING KATI SONG Final Result documented in this encounter Visit Diagnoses Diagnosis Plantar fasciitis of left foot- Primary Plantar fascial fibromatosis Left foot pain Pain in limb Left foot pain Pain in limb Left foot pain Pain in limb documented in this encounter Care Teams Forest Pathologist Relationship Specialty Start Date End Date Laureano Marin MD [address] [place] [phone] PCP - General Family Medicine 07/09/22 Gerry Bae MD [address] [place] [address] [place] [address] Medical Oncologist Internal Medicine-Hematology and Oncology 07/20/22 documented as of this encounter
--- OUTSIDE RECORDS SUMMARY | 2025-04-17 10:45 | XMS_ITS | Encounter Summary ---
Author Organization [facility] Address [address] [place] [address] Care Team Providers Care Direct Support Professional Name Role Phone Laureano Marin MD Primary Care Provider + [phone] Gerry Bae MD Unavailable [phone] Encounter Details Date Type Department Care Team (Late st Contact Info) Description 04/17/2025 11:45 AM EDT [facility] [address] [address] Liliam Mc N, PROGRAM DIRECTOR/MORNING SHOW HOST [address] [facility] [address] [place] [address] Left foot pain Social History Tobacco Use [...] on file documented as of this encounter Plan of Treatment Upcoming Encounters Date Type Department Care Team (Late st Contact Info) Description 06/01/2025 1:45 PM EST Office Visit [facility] [address] [address] Caitlin Avila NP [address] [place] [address] 06/05/2025 10:00 AM EST Appointment [facility] [place] [address] 06/05/2025 10:20 AM EST [facility]ment [facility] [place] [address] Gerry Bae MD [address] [place] [address] 06/05/2025 11:00 AM EST Appointment [facility] [place], [place] [phone] 07/02/2025 1:00 PM EST Office Visit [facility] Nephrology [address] [address] Nafisa Stringer MD [address] [place] [address] documented as of this encounter Goals Goal Patient Goal Type Associated Problems Recent Progress Patient-Stated? Author Knowledge Deficit General No Margaret Dickinson APRN Note: Chemotherapy education provided and reviewed. documented as of this encounter Procedures Procedure Name Priority Date/Time Associated Diagnosis Comments XR ANKLE LEFT AP LATERAL AND OBLIQUE INCLUDING STANDING Routine 04/17/2025 11:35 AM EDT Left foot pain documented in this encounter Results * XR ANKLE LEFT AP LATERAL AND OBLIQUE INCLUDING STANDING (04/17/2025 11:35 AM EDT) Narrative Genericuser, Audit - 04/17/2025 11:35 AM EDT Please see physician's note from office encounter for x-ray imaging result us Liliam Mc APRN IMG DIAGNOSTIC IMAGING ORDE DUNCAN Final Result documented in this encounter Visit Diagnoses Diagnosis Left foot pain Pain in limb documented in this encounter Care Teams Direct Support Professional Relationship Specialty Start Date End Date Laureano Marin MD [address] [place] [address] [place] [phone] PCP - General Family Medicine 07/09/22 Gerry Bae MD [address] [facility] [place] [address] Medical Oncologist Internal Medicine-Hematology and Oncology 07/20/22 documented as of this encounter
--- OUTSIDE RECORDS SUMMARY | 2025-05-08 09:00 | XMS_ITS | Encounter Summary ---
Author Organization [place] [address] Care Team Providers Care Load Tallier Name Role Phone Laureano Marin MD Primary Care Provider + [phone] Gerry Bae MD Unavailable [phone] Karen Guzman RN Unavailable Unavailable Encounter Details Date Type Department Care Team (Latest Contact Info) Description 05/08/2025 10:00 AM EDT - 05/08/2025 10:29 AM EDT Hospital Encounter [place] [address] Multiple myeloma not having achieved [...] with plastic wrap 30 g 2 06/27/2024 methylPREDNISolon e (MEDROL DOSPACK) 4 mg Oral Tablets, Dose PackIndications:L eft foot pain,Plantar fasciitis of left foot Follow package directions 21 Tablet 04/17/2025 metoprolol (LOPRESSOR) 50 mg Oral Tablet Take [...] PM EST Office Visit Anuja LI [address] [facility] [address] [place], [place] [phone] Caitlin Avila NP [address] [place], [place] [phone] 06/05/2025 10:00 AM EST Appointment [facility] [place], [place] [phone] 06/05/2025 10:20 AM EST Appointment [facility] [place], [place] [phone] Gerry Bae MD [address] [place] [phone] 06/05/2025 11:00 AM EST Appointment [facility] [place], [place] [phone] 07/02/2025 1:00 PM EST Office Visit [facility] Nephrology [address] [address] Nafisa Stringer MD [address] [place], [place] [phone] documented as of this encounter Goals Goal Patient Goal Type Associated Problems Recent Progress Patient-Stated? Author Knowledge Deficit General No Margaret Dickinson APRN Note: Chemotherapy education provided and reviewed. documented as of this encounter Procedures Procedure Name Priority Date/Time Associated Diagnosis Comments SERUM PROTEIN ELECTROPHORESIS WITH REFLEX Routine 05/08/2025 10:29 AM EDT Multiple myeloma not having achieved remission (HCC) KAPPA/LAMBDA FREE LIGHT CHAINS Routine 05/08/2025 10:29 AM EDT Multiple myeloma not having achieved remission (HCC) CBC WITH DIFF STAT 05/08/2025 10:29 AM EDT Multiple myeloma not having achieved remission (HCC) IGA Routine 05/08/2025 10:29 AM EDT Multiple myeloma not having achieved remission (HCC) IGM Routine 05/08/2025 10:29 AM EDT Multiple myeloma not having achieved remission (HCC) IGG Routine 05/08/2025 10:29 AM EDT Multiple myeloma not having achieved remission (HCC) COMPREHENSIVE METABOLIC PANEL STAT 05/08/2025 10:29 AM EDT Multiple myeloma not having achieved remission (HCC) documented in this encounter Results * (ABNORMAL) SERUM PROTEIN ELECTROPHORESIS WITH REFLEX (05/08/2025 10:29 AM EDT) Albumin SPE 3.6 3.1 - 5.0 gm/dL 05/09/2025 12:41 PM EDT [facility] Alpha 1 Globulin 0.4(H) 0.1 - 0.3 gm/dL 05/09/2025 12:41 PM EDT [facility] Alpha 2 Globulin 0.8 0.5 - 1.0 gm/dL 05/09/2025 12:41 PM EDT [facility] Beta Globulin 0.8 0.5 - 1.4 gm/dL 05/09/2025 12:41 PM EDT [facility] Gamma Globulin KELVIN 0.5(L) 0.6 - 1.6 gm/dL 05/09/2025 12:41 PM EDT [facility] Total Protein 6.1(L) 6.4 - 8.3 gm/dL 05/09/2025 12:41 PM EDT [facility] SPE/IT Interp M-protein not apparent on serum protein electrophore sis. Reduced gamma fraction. This test has been reviewed and approved by Leonel Nicole MD, KENJI. 05/09/2025 12:41 PM EDT [facility] [employer] Blood VENOUS STRUCTURE / Unknown Port / Unknown 05/08/2025 10:29 AM EDT 05/08/2025 10:31 AM EDT Gerry Bae MD IMMUNOLOGY ORDERABLES Final Result Performing Organization Address [facility] de Phone Number [facility] [address] , [place] [address] * KAPPA/LAMBDA FREE LIGHT CHAINS (05/08/2025 10:29 AM EDT) Millard Free Light Chains 4.17 3.30 - 19.40 mg/L 05/08/2025 2:13 PM EDT [facility] [employer], [employer] Lambda Free Light Chains 6.51 5.70 - 26.30 mg/L 05/08/2025 2:13 PM EDT [facility] [employer] Millard/Lambda FLC Ratio 0.64 0.26 - 1.65 05/08/2025 2:13 PM EDT [facility] [employer] Blood VENOUS STRUCTURE / Unknown Port / Unknown 05/08/2025 10:29 AM EDT 05/08/2025 10:31 AM EDT Gerry Bae MD CHEMISTRY ORDERABLES Final Result Performing Organization Address [facility] Phone Number [facility] [employer] [address] [place] [address] , [place] [address] * (ABNORMAL) IGM (05/08/2025 10:29 AM EDT) IgM <25(L) 40 - 230 mg/dL 05/08/2025 1:11 PM EDT [facility] [employer] Blood VENOUS STRUCTURE / Unknown Port / Unknown 05/08/2025 10:29 AM EDT 05/08/2025 10:31 AM EDT Gerry Bae MD IMMUNOLOGY ORDERABLES Final Result Performing Organization Address [facility] Co de Phone Number [facility] [address] [facility] , [place] [address] * (ABNORMAL) IGG (05/08/2025 10:29 AM EDT) IgG 615(L) 700 - 1,600 mg/dL 05/08/2025 1:11 PM EDT [facility] Blood VENOUS STRUCTURE / Unknown Port / Unknown 05/08/2025 10:29 AM EDT 05/08/2025 10:31 AM EDT Gerry Bae MD IMMUNOLOGY ORDERABLES Final Result Performing Organization Address [facility] Co de Phone Number [facility] [address] [facility] [place] [address] * (ABNORMAL) IGA (05/08/2025 10:29 AM EDT) IgA <50(L) 70 - 400 mg/dL 05/08/2025 1:11 PM EDT [facility] Blood VENOUS STRUCTURE / Unknown Port / Unknown 05/08/2025 10:29 AM EDT 05/08/2025 10:31 AM EDT Gerry Bae MD IMMUNOLOGY ORDERABLES Final Result Performing Organization Address [facility] de Phone Number [facility] [address] [facility] , [place] [address] * (ABNORMAL) COMPREHENSIVE METABOLIC PANEL (05/08/2025 10:29 AM EDT) Sodium 139 136 - 145 mmol/L 05/08/2025 10:57 AM EDT [facility] Potassium 3.9 3.5 - 5.0 mmol/L 05/08/2025 10:57 AM EDT [facility] Chloride 101 98 - 107 mmol/L 05/08/2025 10:57 AM EDT [facility] Total CO2 25 22 - 29 mmol/L 05/08/2025 10:57 AM EDT [facility] Anion Gap 13 7 - 16 mmol/L 05/08/2025 10:57 AM EDT [facility] Calcium 9.5 8.8 - 10.4 mg/dL 05/08/2025 10:57 AM EDT [facility] Glucose Lvl 144(H) 70 - 99 mg/dL 05/08/2025 10:57 AM EDT [facility] BUN 22 8 - 23 mg/dL 05/08/2025 10:57 AM EDT [facility] Creatinine 1.37(H) 0.51 - 1.30 mg/dL 05/08/2025 10:57 AM EDT [facility] Albumin 3.9 3.2 - 4.6 gm/dL 05/08/2025 10:57 AM EDT [facility] Total Protein 6.6 6.4 - 8.3 gm/dL 05/08/2025 10:57 AM EDT [facility] Bili Total 0.3 0.2 - 1.3 mg/dL 05/08/2025 10:57 AM EDT [facility] ALT 14 <=41 U/L 05/08/2025 10:57 AM EDT [facility] AST 20 <=40 U/L 05/08/2025 10:57 AM EDT [facility] Alk Phos 65 36 - 123 U/L 05/08/2025 10:57 AM T [facility] eGFR (CKD-EPIcr 2020) 41(L) >=60 mL/min/1.7 3 m2 05/08/2025 10:57 AM EDT [facility] Comment:Estimated GFR was ca lculated using the CKD-EPIcr (2020) equation refit without race. The equation is recommended by the National Kidney Foundation - [place] [employer] of Nephrology Task Force. Blood VENOUS STRUCTURE / Unknown Port / Unknown 05/08/2025 10:29 AM EDT 05/08/2025 10:31 AM EDT us Gerry Bae MD CHEMISTRY ORDERABLES Final Result [facility] [address] [place] [address] * (ABNORMAL) CBC WITH DIFF (05/08/2025 10:29 AM EDT) WBC 4.8 3.7 - 10.3 x10(3)/mc L 05/08/2025 10:41 AM EDT [facility] RBC 3.85(L) 3.90 - 5.20 x10(6)/mc L 05/08/2025 10:41 AM EDT [facility] Hgb 12.6 11.2 - 15.7 g/dL 05/08/2025 10:41 AM EDT [facility] Hct 38.1 34.0 - 45.0 % 05/08/2025 10:41 AM EDT [facility] MCV 99.0 80.0 - 100.0 fL 05/08/2025 10:41 AM EDT [facility] MCH 32.7 26.0 - 34.0 pg 05/08/2025 10:41 AM EDT [facility] MCHC 33.1 30.7 - 35.5 g/dL 05/08/2025 10:41 AM EDT [facility] RDW 13.1 <=14.9 % 05/08/2025 10:41 AM EDT [facility] Platelet 162 155 - 369 x10(3)/mc L 05/08/2025 10:41 AM EDT [facility] MPV 10.0 8.8 - 12.5 fL 05/08/2025 10:41 AM EDT [facility] Neut # Prelim 3.9 1.6 - 6.1 x10(3)/mc L 05/08/2025 10:41 AM EDT [facility] Comment:Preliminary automate d absolute neutrophil count. Value may change if manual differential is indicated. Neut Percent 80.8 % 05/08/2025 10:41 AM EDT [facility] Comment:Neutrophils equals s egs plus bands Imm Gran% 0.2 % 05/08/2025 10:41 AM EDT [facility] Comment:Automated count of m etamyelocytes, myelocytes and promyelocytes. Lymph Percent 8.8 % 05/08/2025 10:41 AM EDT [facility] [place] Percent 6.7 % 05/08/2025 10:41 AM EDT [facility] Eos Percent 2.7 % 05/08/2025 10:41 AM EDT [facility] Baso Percent 0.8 % 05/08/2025 10:41 AM EDT [facility] Neut # 3.9 1.6 - 6.1 x10(3)/mc L 05/08/2025 10:41 AM EDT [facility] Comment:Neutrophils equals s egs plus bands IMMGRAN# 0.0 0.0 - 0.1 x10(3)/mc L 05/08/2025 10:41 AM EDT [facility] Comment:Automated count of m etamyelocytes, myelocytes and promyelocytes. An absolute IG <0.1 is reported as 0.0. Lymph # 0.4(L) 1.2 - 3.9 x10(3)/mc L 05/08/2025 10:41 AM EDT [facility] [place] # 0.3 0.3 - 0.9 x10(3)/mc L 05/08/2025 10:41 AM EDT [facility] Eos# 0.1 0.0 - 0.5 x10(3)/mc L 05/08/2025 10:41 AM EDT [facility] Baso # 0.0 0.0 - 0.1 x10(3)/mc L 05/08/2025 10:41 AM EDT [facility] Blood VENOUS STRUCTURE / Unknown Port / Unknown 05/08/2025 10:29 AM EDT 05/08/2025 10:31 AM EDT us Gerry Bae MD HEMATOLOGY ORDERABLES Final Result [facility] [address] [place] [address] documented in this encounter Visit [...] 10 mL, Intravenous, ONCE, 1 dose, On Wed05/08/25 at 1015, For initial access of Venous Access Device., Dx: 1. Multiple myeloma not having achieved remission (HCC)Indications:Multiple myeloma not having achieved remission (HCC) Given 05/08/2025 10:30 AM EDT 10 mL documented in this encounter Care Teams Load Tallier Relationship Specialty Start Date End Date Laureano Marin MD [address] [place] [address] PCP - General Family Medicine 07/09/22 Gerry Bae MD [address] [place] [address] Medical Oncologist Internal Medicine-Hematology and Oncology 07/20/22 Karen Guzman, RN Registered Nurse Infusion Therapy 05/08/25 05/08/25 documented as of this encounter
--- OUTSIDE RECORDS SUMMARY | 2025-05-08 09:30 | XMS_ITS | Encounter Summary ---
Author Organization [place] [address] Care Team Providers Care Spider Assembler Name Role Phone Laureano Marin MD Primary Care Provider + [phone] Gerry Bae MD Unavailable [phone] Karen Guzman RN Unavailable Unavailable Reason for Visit * Reason Comments Follow-up Multiple myeloma not having achieved remission Chemotherapy Darzalex Faspro D1C3 6 Encounter Details Date Type Department Care Team (Latest Contact Info) Description 05/08/2025 10:30 AM EDT - 05/08/2025 10:59 AM EDT Hospital Encounter [facility] [place] [id number] Diane Nieves APRN [address] [place], [place] [id number] Multiple myeloma not having achieved remission (HCC) (Primary Dx); Encounter for monoclonal antibody treatment for malignancy; Stage 3b chronic kidney disease (HCC); Encounter for monitoring bisphosphonate therapy; Immunoglobulin deficiency; Weakness Discharge Disposition: Home or Self Care Social [...] Sign Reading Time Taken Comments Blood Pressure 121/65 05/08/2025 10:39 AM EDT Pulse 72 05/08/2025 10:39 AM EDT Temperature 37.2 C (99 F) 05/08/2025 10:39 AM EDT Respiratory Rate 17 05/08/2025 10:3 9 AM EDT Oxygen Saturation 100% 05/08/2025 10: 39 AM EDT Inhaled Oxygen Concentration - - Weight 125.1 kg (275 lb 11.2 oz) 2024 10:39 AM EDT Height 165.1 cm (5' 5 ) 05/08/2025 10:3 9 AM EDT Body Mass Index 45.88 05/08/2025 10:39 AM EDT documented in this encounter Medications [...] gauge Misc Misc 10/14/2022 ONETOUCH ULTRA TEST [facility] [place] TEST BLOOD SUGAR ONCE A DAY [...] Progress Notes * Diane Nieves APRN - 05/08/2025 10:30 AM EDT Images from the original note were not included. Patient: Yudi Vasquez CSN: [id number] Date of : 1950 Age: 74 y.o. Date of Service: 05/08/2025 HEMATOLOGY/ONCOLOGY FOLLOW UP VISIT Primary Programmer Engineering [employer] Scientific & Oncologist: eGrry Bae MD DIAGNOSIS & TREATMENT HISTORY: Oncology History Overview Note Multiple myeloma, IgG Goodenow Dx 06/2022. P/w UE pain. Imaging w/ [...] IVIG, now dosing every 2 months, due 05/2025 INTERVAL HISTORY: Chief Complaint Patient presents with Follow-up Multiple myeloma not having achieved remission Chemotherapy Darzalex Faspro D1C36 Yudi J Blades is coming today for follow-up with myeloma. Reports knees and feet been giving her issues but following with [facility]. Bone spur and s/p medrol dose pack earlier in month. Thinks might need injections for knees soon, hx of getting gel she reports. Denies recent dental work. Denies fever, chills, rash. Denies dyspnea. Denies bleeding. REVIEW OF SYSTEMS: Review of Systems Constitutional: Positive for fatigue. Negative for chills and fever. Respiratory: Negative for cough and shortness of breath. Cardiovascular: Negative for chest pain. Gastrointestinal: Negative for abdominal pain and diarrhea. Musculoskeletal: Positive for arthralgias and myalgias. MEDICATIONS: Medications and allergies reviewed PHYSICAL EXAM: Vitals: 05/08/25 1039 BP: 121/65 Pulse: 72 Resp: 17 Temp: 99 ??F (37.2 ??C) SpO2: 100% Wt Readings from Last 2 Encounters: 05/08/25 275 lb 11.2 oz (125.1 kg) 04/10/25 278 lb 11.2 oz (126.4 kg) ECO-2 Physical Exam Constitutional: Appearance: She is obese. She is not ill-appearing. Eyes: General: No scleral icterus. Cardiovascular: Rate and Rhythm: Normal rate. Pulmonary: Effort: Pulmonary effort is normal. Abdominal: General: There is no distension. Musculoskeletal: General: No swelling. Skin: General: Skin is dry. Coloration: Skin is pale. Skin is not jaundiced. Findings: No bruising or rash. Neurological: Mental Status: She is alert and oriented to person, place, and time. Motor: Weakness: generalized weakness and discomfort from arthralgias. Ambulates with cane but for longer distance wheelchair in use. MEDICAL DATA REVIEW: Laboratories, Images and Pathology results reviewed ASSESSMENT & PLAN Yudi was seen today for follow-up and chemotherapy. Diagnoses and all orders for this visit: Multiple myeloma not having achieved remission (HCC) Encounter for monoclonal antibody treatment for malignancy Stage 3b chronic kidney disease (HCC) Encounter for monitoring bisphosphonate therapy Immunoglobulin deficiency Weakness Other orders - Cancel: 0.9 % NaCl infusion - Cancel: dexAMETHasone (DECADRON) tablet 40 mg - prochlorperazine edisylate (COMPAZINE) injection 10 mg - prochlorperazine (COMPAZINE) tablet 10 mg - Cancel: kltittutedc-jmegxcthhzzff-zoyw (DARZALEX FASPRO) injection 1,800 mg - Cancel: sodium chloride [...] EPINEPHrine injection 0.3 mg Multiple myeloma, IgG Goodenow Dx 06/2022. P/w UE pain. Imaging w/ [...] elected to proceed w/ tereso-RD. Tereso-dex (@ DR 20 mg wkly) started 08/17/22. Completed palliative, [...] Zometa (at dose reduction given renal dysfunction). No emerging dental concerns. Repeat MM labs pending. If any concern for progression, would likely add velcade. 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 Given ongoing IgG at/above goal, we have prior de-escalated to q2 month dosing, due next month Cutaneous SCCa S/p wide local excision, R sentinel lymph node biopsy tail of parotid, R superficial parotidectomy with facial nerve preservation, R selective neck dissection (levels II-III) and cervicofacial advancement flap on 09/07/2024 (pT2N1). Decided not to proceed w/ adjuvant radiotherapy. Following w/ Dermat ology (Dr. Farmer), ENT (Dr. Alvarado). CKD3 Labs reviewed, overall stable. Established with Nephrology, renal US today, OA Admitted 12/27/22 w/ severe pain. Imaging w/ advanced OA, small effusion/guzmán's cyst. Orthopedics c/s, s/p steroid injection. Controlled. Continue to monitor and follow with Ortho. DM2 A1c 5.8% (08/2022). On oral hypoglycemics. IV access PAC placed via IR 07/29/22. Advance Directives: Power of Senior Asp Net Developer: Not Received ADVANCE DIRECTIVE: Not Received Code Status: Needs Addressed - Prior Hx Available Dispo: No follow-ups on file. Thank you for the opportunity to assist in the care of this patient, please feel free to contact meif I can be of any assistance. Diane Nieves APRN Hematology and Medical Oncology [facility] documented in this encounter Plan of Treatment Upcoming Encounters Date Type Department Care Team (Late st Contact Info) Description 06/01/2025 1:45 PM EST Office Visit [facility] [address] [place], [place] [id number] Caitlin Avila NP [address] [facility], [place] [id number] 06/05/2025 10:00 AM EST Appointment [facility] [place], [place] [id number] 06/05/2025 10:20 AM EST Appointment [facility] [place], [place] [id number] Gerry Bae MD [address] [place] [id number] 06/05/2025 11:00 AM EST Appointment [facility] [place], [place] [id number] 07/02/2025 1:00 PM EST Office Visit [facility] Nephrology [address] [place], [place] [phone] Nafisa Stringer MD [address] [place] [address] documented as of this encounter Goals Goal [...] monitoring 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 [place] [address] Medical Oncologist Internal Medicine-Hematology and Oncology 07/20/22 Karen Guzman, RN Registered Nurse Infusion Therapy 05/08/25 05/08/25 documented as of this encounter
--- OUTSIDE RECORDS SUMMARY | 2025-05-08 10:00 | XMS_ITS | Encounter Summary ---
Author Organization [place] [address] Care Team Providers Care Intensive Care Unit Nurse Name Role Phone Laureano Marin MD Primary Care Provider + [phone] Gerry Bae MD Unavailable [phone] Karen Guzman RN Unavailable Unavailable Reason for Visit * Oncology Medication Prior Authorization (Routine) - Authorized Specialty Diagnoses / Procedures Referred By Star hi Referred To Contact Oncology Diagnoses Multiple myeloma not having achieved remission (HCC) Procedures ONCOLOGY MEDICATION AUTHORIZATION Gerry Bae MD [address] [place] [place] [address] Phone: tel: fax: [place] [address] Phone: tel: fax: Referral ID Status Reason Start Date Expiration Date V isits Requested Visits Authorized [id number] Authorized 08/02/2022 07/11/2025 45 45 Encounter Details Date Type Department Care Team (Latest Contact Info) Description 05/08/2025 11:00 AM EDT - 05/08/2025 12:57 PM EDT Hospital Encounter [place] [address] Multiple myeloma not having achieved [...] Sign Reading Time Taken Comments Blood Pressure 96/74 05/08/2025 12:12 PM EDT Pulse 75 05/08/2025 12:12 PM EDT Temperature - - Respiratory Rate 16 05/08/2025 12:12 PM EDT Oxygen Saturation - - Inhaled [...] gauge Misc Misc 10/14/2022 ONETOUCH ULTRA TEST [facility] [place] TEST BLOOD SUGAR ONCE A DAY [...] encounter Miscellaneous Notes * Patient Instructions - Karen Guzman RN - 05/08/2025 11:00 AM EDT [facility] Discharge Instructions Thank you for entrusting the [facility] with your care. We hope you are pleased with your outpatient care and services. Because we are most concerned with your health, we suggest you carefully read the following discharge instructions: Your Discharge Instructions: MEDICATION INSTRUCTIONS: Treatment received today: Orders Placed This Encounter 0.9 % NaCl infusion dexAMETHasone (DECADRON) tablet 40 mg yribinizggy-ttnkuhdpienjq-qilu (DARZALEX FASPRO) injection 1,800 mg sodium chloride 0.9% syringe 10 mL heparin flush 100 unit/mL injection 500 Units zoledronic acid (ZOMETA) 3 mg in dextrose 5% 100 mL IVPB DISCONTD: 0.9 % NaCl infusion Reviewed medications administered today and possible side [...] infection DON'T WAIT, PLEASE CALL US FIRST [phone]. [FOR URGENT ISSUES PLEASE DO NOT LEAVE A MESSAGE, FOLLOW PROMPTS TO THE DOCTOR YEAST PUMPER] For Gynecology / Oncology call : [phone] Our hours of operation are Wednesday - Wednesday 8:00 AM - 4:30 PM. [facility] [place] [address] 951 [phone] [address] Results for orders placed or performed during the hospital encounter of 05/08/25 CBC WITH DIFF Result Value Ref Range WBC 4.8 3.7 - 10.3 x10(3)/mcL RBC 3.85 (L) 3.90 - 5.20 x10(6)/mcL Hgb 12.6 11.2 - 15.7 g/dL Hct 38.1 34.0 - 45.0 % MCV 99.0 80.0 - 100.0 fL MCH 32.7 26.0 - 34.0 pg MCHC 33.1 30.7 - 35.5 g/dL RDW 13.1 <=14.9 % Platelet 162 155 - 369 x10(3)/mcL MPV 10.0 8.8 - 12.5 fL Neut # Prelim 3.9 1.6 - 6.1 x10(3)/mcL Neut Percent 80.8 % Imm Gran% 0.2 % Lymph Percent 8.8 % Comal Percent 6.7 % Eos Percent 2.7 % Baso Percent 0.8 % Neut # 3.9 1.6 - 6.1 x10(3)/mcL IMMGRAN# 0.0 0.0 - 0.1 x10(3)/mcL Lymph # 0.4 (L) 1.2 - 3.9 x10(3)/mcL Comal # 0.3 0.3 - 0.9 x10(3)/mcL Eos# 0.1 0.0 - 0.5 x10(3)/mcL Baso # 0.0 0.0 - 0.1 x10(3)/mcL COMPREHENSIVE METABOLIC PANEL Result Value Ref Range Sodium 139 136 - 145 mmol/L Potassium 3.9 3.5 - 5.0 mmol/L Chloride 101 98 - 107 mmol/L Total CO2 25 22 - 29 mmol/L Anion Gap 13 7 - 16 mmol/L Calcium 9.5 8.8 - 10.4 mg/dL Glucose Lvl 144 (H) 70 - 99 mg/dL BUN 22 8 - 23 mg/dL Creatinine 1.37 (H) 0.51 - 1.30 mg/dL Albumin 3.9 3.2 - 4.6 gm/dL Total Protein 6.6 6.4 - 8.3 gm/dL Bili Total 0.3 0.2 - 1.3 mg/dL ALT 14 <=41 U/L AST 20 <=40 U/L Alk Phos 65 36 - 123 U/L eGFR (CKD-EPIcr 2020) 41 (L) >=60 mL/min/1.73 m2 documented in this encounter Plan of Treatment Upcoming Encounters Date Type Department Care Team (Late st Contact Info) Description 06/01/2025 1:45 PM EST Office Visit [facility] [address] [address] Caitlin Avila NP [address] [place] [address] 06/05/2025 10:00 AM EST Appointment [facility] [place], [place] [phone] 06/05/2025 10:20 AM EST [facility]ointment [facility] [place], [place] [id number] Gerry Bae MD [address] [place] [place] [id number] 06/05/2025 11:00 AM EST Appointment [facility] [place], [place] [id number] 07/02/2025 1:00 PM EST Office [facility] Nephrology [address] [place] [address] Nafisa Stringer MD [address] [place], [place] [address] documented as of this encounter Goals Goal [...] Intravenous, at 30 mL/hr, CONTINUOUS, Starting on Wed05/08/25 at 1115, Until Wed05/09/25 at 0409, For glue line operator during chemotherapy infusion., Dx: 1. Multiple myeloma not having achieved remission (HCC)Indications:Multipl e myeloma not having achieved remission (HCC) New Bag 05/08/2025 11:26 AM EDT 30 mL/hr daratumumab-hyaluronidas e-fihj (DARZALEX FASPRO) injection 1,800 mg 1,800 mg, Subcutaneous, ONCE, 1 dose, On Wed05/08/25 at 1215, +++ Caution: CHEMOTHERAPEUTIC AGENT +++ Administer subcut over 3 to 5 minutes. Inject into the abdomen, approximiately 3 inches from the navel. Pause or slow delivery if patient experiences pain. Do not administer other products at the same site., Dx: 1. Multiple myeloma not having achieved remission (HCC)Indications:Multipl e myeloma not having achieved remission (HCC) Given 05/08/2025 12:14 PM EDT 1,800 mg Abdominal Tissue dexAMETHasone (DECADRON) tablet 40 mg 40 mg, Oral, ONCE, 1 dose, On Wed05/08/25 at 1115, Dx: 1. Multiple myeloma not having achieved remission (HCC)Indications:Multipl e myeloma not having achieved remission (HCC) Given 05/08/2025 11:28 AM EDT 40 mg heparin flush 100 unit/mL injection 500 Units 500 Units, Intravenous, PRN, Starting on Wed05/08/25 at 1114, Until Wed05/09/25 at 0409, Line Care, For Venous Access Device care and maintenance., Dx: 1. Multiple myeloma not having achieved remission (HCC)Indications:Multipl e myeloma not having achieved remission (HCC) Given 05/08/2025 12:23 PM EDT 500 Units sodium chloride 0.9% syringe 10 mL 10 mL, Intravenous, PRN, Starting on Wed05/08/25 at 1114, Until Wed05/09/25 at 0409, Line Care, For Venous Access Device care and maintenance., Dx: 1. Multiple myeloma not having achieved remission (HCC)Indications:Multipl e myeloma not having achieved remission (HCC) Given 05/08/2025 12:23 PM EDT 10 mL zoledronic acid (ZOMETA) 3 mg in dextrose 5% 100 mL IVPB 3 mg, Intravenous, ONCE, 1 dose, On Wed05/08/25 at 1115, Administer over 20 Minutes, Dx: 1. Multiple myeloma not having achieved remission (HCC)Indications:Multipl e myeloma not having achieved remission (HCC) IV Started 05/08/2025 11:50 AM EDT 3 mg 300 mL/hr documented in this encounter Orders Medications Ordered That Orlin ht Not Have Been Administered Count Last Ordered Date First Ordered Date 0.9 % NaCl infusion 1 05/08/2025 documented in this encounter Care Teams Intensive Care Unit Nurse Relationship Specialty Start Date End Date Laureano Marin MD [address] [place] [address] PCP - General Family Medicine 07/09/22 Gerry Bae MD [address] [place] [address] Medical Oncologist Internal Medicine-Hematology and Oncology 07/20/22 Karen Guzman, RN Registered Nurse Infusion Therapy 05/08/25 05/08/25 documented as of this encounter
--- OUTSIDE RECORDS SUMMARY | 2025-05-08 11:58 | XMS_ITS | Encounter Summary ---
Author Organization [place] [address] Care Team Providers Care Garage Supervisor Name Role Phone Laureano Marin MD Primary Care Provider + [phone] Gerry Bae MD Unavailable [phone] Karen Guzman RN Unavailable Unavailable Reason for Referral * Ultrasound (Routine) - Pending Review Specialty Diagnoses / Procedures Referred By Star hi Referred To Contact Radiology Diagnoses Stage 3a chronic kidney disease (HCC) Type 2 diabetes mellitus with stage 3a chronic kidney disease, without long-term current use of insulin (HCC) Multiple myeloma not having achieved remission (HCC) Procedures US RENAL AND BLADDER Nafisa Stringer MD [address] [place] [address] Phone: tel: fax: Referral ID Status Reason Start Date Expiration Date V isits Requested Visits Authorized [id number] Pending Review 04/02/2025 04/02/2026 1 1 Reason for Visit * Ultrasound (Routine) - Pending Review Specialty Diagnoses / Procedures Referred By Star hi Referred To Contact Radiology Diagnoses Stage 3a chronic kidney disease (HCC) Type 2 diabetes mellitus with stage 3a chronic kidney disease, without long-term current use of insulin (HCC) Multiple myeloma not having achieved remission (HCC) Procedures US RENAL AND BLADDER Nafisa Stringer MD [address] [place], [place] [address] Phone: tel: fax: Referral ID Status Reason Start Date Expiration Date V isits Requested Visits Authorized [id number] Pending Review 04/02/2025 04/02/2026 1 1 Encounter Details Date Type Department Care Team (Latest Contact Info) Description 05/08/2025 12:58 PM EDT - 05/08/2025 11:59 PM EDT Hospital Encounter [facility] [place] [address] [place] [address] Nafisa Stringer MD [address] [place] [address] [address] [place] [address] Stage 3a chronic kidney disease (HCC); Type 2 diabetes mellitus with stage 3a chronic kidney disease, without long-term current use of insulin (HCC); Multiple myeloma not having achieved remission (HCC) Discharge Disposition: Home or Self Care Social [...] DELICA PLUS LANCET [facility] [place] 10/14/2022 ONETOUCH ULTRA TEST [facility] [place] Strip TEST BLOOD SUGAR ONCE A [...] EST Office Visit [facility] [address] [place], [place] [phone] Caitlin Avila NP [address] [place], [place] [id number] 06/05/2025 10:00 AM EST Appointment [facility] [place], [place] [id number] 06/05/2025 10:20 AM EST Appointment [facility] [place], [place] [id number] Gerry Bae MD [address] [place] [phone] 06/05/2025 11:00 AM EST Appointment [facility] [place], [place] [id number] 07/02/2025 1:00 PM EST Office Visit [facility] Nephrology [address] [place], [place] [phone] Nafisa Stringer MD [address] [place], [place] [address] documented as of this encounter Goals Goal Patient Goal Type Associated Problems Recent Progress Patient-Stated? Author Knowledge Deficit General No Margaret Dickinson APRN Note: Chemotherapy education provided and reviewed. documented as of this encounter Procedures Procedure Name Priority Date/Time Associated Diagnosis Comments US RENAL AND BLADDER Routine 05/08/2025 2:50 PM EDT Stage 3a chronic kidney disease (HCC) Type 2 diabetes mellitus with stage 3a chronic kidney disease, without long-term current use of insulin (HCC) Multiple myeloma not having achieved remission (HCC) documented in this encounter Results * US RENAL AND [...] evaluation of the kidneys and bladder with sales representative publications images and horse racetrack manager notes sent to PACS for radiologist review. [...] sonographic evaluation of the kidneys andbladder with sales representative publications images and horse racetrack manager notes sent to PACS forradiologist review. FINDINGS: [...] please contactthe office of the ordering clinician. 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 kidney disease, without long-term current use of insulin (HCC) Multiple myeloma not having achieved remission (HCC) Multiple myeloma, without mention of having achieved remission documented in this encounter Care Teams Garage Supervisor Relationship Specialty Start Date End Date Laureano Marin MD [address] [place] [address] PCP - General Family Medicine 07/09/22 Gerry Bae MD [address] [place] [address] Medical Oncologist Internal Medicine-Hematology and Oncology 07/20/22 Karen Guzman, RN Registered Nurse Infusion Therapy 05/08/25 05/08/25 documented as of this encounter
--- OUTSIDE RECORDS SUMMARY | 2025-05-11 12:45 | XMS_ITS | Encounter Summary ---
Author Organization [facility] Address [address] [place] [address] Care Team Providers Care Ticket Chopper Assembler Name Role Phone Laureano Marin MD Primary Care Provider + [phone] Gerry Bae MD Unavailable [phone] Reason for Referral * In Office Procedure (Routine) - AFF Authorization Not Needed Specialty Diagnoses / Procedures Referred By Star hi Referred To Contact Orthopedic Surgery Diagnoses Pain in both knees, unspecified chronicity Procedures [facility] MEDICATION/PROCEDURE AUTH Caitlin Avila NP [address] [place] [address] Phone: tel: fax: [facility] [address] [address] Phone: tel: fax: Referral ID Status Reason Start Date Expiration Date Visits Requested Visits Authorized [id number] AFF Authorization Not Needed 05/11/2026 1 1 Reason for Visit * Reason Comments Pain Pain Encounter Details Date Type Department Care Team (Late st Contact Info) Description 05/11/2025 1:45 PM EDT Office Visit [facility] [address] [place] [address] Caitlin Avila NP [address] [place] [address] Pain in both knees, unspecified chronicity (Primary Dx); Primary osteoarthritis of right knee; Primary osteoarthritis of left knee Social History Tobacco Use Types Packs/Day Years [...] on file documented as of this encounter Progress Notes * Caitlin Avila NP - 05/11/2025 1:45 PM EDT Images from the original note were not included. [address] [phone] [place], [place] [phone] [place], [place] Yudi Vasquez 1950 Chief Complaint Patient presents with Left Knee - Pain Right Knee - Pain Subjective: Yudi Vasquez is a 74 y.o. female presenting for evaluation of L>R knee pain New Injury/Established History of type 2 diabetes, multiple myeloma diagnosed in Jun, treating with chemotherapy and chronic kidney disease. The pain began ~20 years ago. Worsened in 2022. Last seen by us 2022 for gel injections. She felt Gelsyn worked better then Durolane. The injections were helpful until recently. She wants to get authorized and administered again. Extensive history makes her a poor candidate for TKA. Severe OA on x-ray. More concerned about stiffness and immobility then pain. Feels unstable and weak. When has pain, medial > generalized. Difficulty walking, getting up from seated position and bending. CRD prevents OTC NSAIDs. Last GFR 41. The symptoms are worse with activity such as walking, standing, kneeling, and squatting. At this point, the patient describes having significant pain. The pain is more than just a nuisance; it is affecting the patient's quality of life. Going up and down stairs, standing for long periodsof time, and walking long distances are difficult. Rest, ice, medications and assisted devices havebeen tried. None of this has really solved the problem. BMI of 45 Social History Substance and Sexual Activity Drug Use Never Tobacco Use History[1] Objective: Review of Systems Constitutional: Negative. Respiratory: Negative. Cardiovascular: Negative. Gastrointestinal: Negative. Musculoskeletal: Positive for joint pain. Skin: Negative. There is no height or weight on file to calculate BMI. On physical examination the patient is alert and oriented. Appropriate mood for the conversation. Well-developed and well-nourished in appearance. Bilateral upper extremities demonstrate apparently normal range of motion. Skin of bilateral upper and lower extremities with no obvious rash or lesions. Apparently normal muscle tone for bilateral knees and ankles. No evidence of obvious significant lymphedema of bilateral lower extremities. Respiratory rate is normal by clinical examination. Pulse rate is normal by peripheral pulse examination. Right Knee Exam Range of Motion Extension: normal Flexion: 100 Comments: Examination of the right knee shows that it is stable to varus and valgus stressing. Normal anterior/posterior drawer testing. Normal Low testing. Normal Kevan testing. There is tenderness to palpation over the lateral, medial joint line, as well as the patellofemoral joint. The skin is intact. Left Knee Exam Range of Motion Extension: normal Flexion: 100 Comments: Examination of the left knee shows that it is stable to varus and valgus stressing. Normal anterior/posterior drawer testing. Normal Low testing. Normal Kevan testing. There is tenderness to palpation over the lateral, medial joint line, as well as the patellofemoral joint. The skin is intact. Imaging: X-rays reviewed today of the bilateral knee show osteoarthritic degenerative change with joint space narrowing, subchondral sclerosis and osteophyte formation. There are no acute findings noted in these films. Kellgren-Neri Grade 4. Assessment and Plan: Diagnoses and all orders for this visit: Pain in both knees, unspecified chronicity - XR KNEE BILATERAL AP LATERAL INTERNAL AND EXTERNAL OBLIQUES; Future - [facility] MEDICATION/PROCEDURE AUTH Primary osteoarthritis of right knee Primary osteoarthritis of left knee PLAN: Recommend conservative treatment Discussed treatment options. DM and chemotherapy treatment limits treatment with steroids. Authorize bilateral Gelsyn #3. Last injections provided 2 years relief. They were painful so will prescribe Hydrocodone prior to OV. She is not a good candidate for surgical intervention. Follow up for gel injections. DME Summary No orders found for display [1] Social History Tobacco Use Smoking Status Never Smokeless Tobacco Never documented in this encounter Plan of Treatment Upcoming Encounters Date Type Department Care Team (Late st Contact Info) Description 06/01/2025 1:45 PM EST Office Visit [facility] [address] [facility] [address] [place], [place] [id number] Caitlin Avila NP [address] [place], [place] [id number] 06/05/2025 10:00 AM EST Appointment [facility] [place], [place] [id number] 06/05/2025 10:20 AM EST Appointment [facility] [place], [place] [id number] Gerry Bae MD [address] [place] [id number] 06/05/2025 11:00 AM EST Appointment [facility] [place], [place] [id number] 07/02/2025 1:00 PM EST Office Visit [facility] Nephrology [address] [address] Nafisa Stringer MD [address] [place], [place] [id number] documented as of this encounter Goals Goal Patient Goal Type Associated Problems Recent Progress Patient-Stated? Author Knowledge Deficit General No Margaret Dickinson APRN Note: Chemotherapy education provided and reviewed. documented as of this encounter Results * XR KNEE BILATERAL AP LATERAL INTERNAL AND EXTERNAL OBLIQUES (05/11/2025 1:39 PM EDT) Narrative Lopez Ovalle - 05/11/2025 1:39 PM EDT Please see physician's note from office encounter for x-ray imaging result us Caitlin Avila CHARTER BOAT OPERATOR IMG DIAGNOSTIC IMAGING ORDERABLE S Final Result documented in this encounter Visit Diagnoses Diagnosis Pain in both knees, unspecified chronicity- Primary Primary osteoarthritis of right knee Primary localized osteoarthrosis, lower leg Primary osteoarthritis of left knee Primary localized osteoarthrosis, lower leg Pain in both knees, unspecified chronicity documented in this encounter Orders Nursing Count Last Ordered Date First Orde red Date [facility] MEDICATION/PROCEDURE AUTH 1 04/13 documented in this encounter Care Teams Ticket Chopper Assembler Relationship Specialty Start Date End Date Laureano Marin MD [address] [place] [address] PCP - General Family Medicine 07/09/22 Gerry Bae MD [address] [facility] [place] [address] Medical Oncologist Internal Medicine-Hematology and Oncology 07/20/22 documented as of this encounter
--- OUTSIDE RECORDS SUMMARY | 2025-05-11 13:00 | XMS_ITS | Encounter Summary ---
Author Organization [facility] Address [address] [place] [address] Care Team Providers Care Showroom Consultant Name Role Phone Laureano Marin MD Primary Care Provider + [phone] Gerry Bae MD Unavailable [phone] Encounter Details Date Type Department Care Team (Late st Contact Info) Description 05/11/2025 2:00 PM EDT Ancillary Procedure [facility] [address] [place] [address] Caitlin Avila NP [address] [place] [address] Pain in both knees, unspecified chronicity Social History Tobacco Use Types Packs/Day Years [...] Encounters Date Type Department Care Team (Late Contact Info) Description 06/01/2025 1:45 PM EST Office Visit [facility] [address] [employer] [address] [address] Caitlin Avila, TUBE DRAWING SUPERVISOR [address] [place] [place] [id number] 06/05/2025 10:00 AM EST Appointment [facility] [place] [address] 06/05/2025 10:20 AM EST [facility]ointment [facility] [place] [address] Gerry Bae MD [address] [place] [address] 06/05/2025 11:00 AM EST Appointment [facility] [place], [place] [id number] 07/02/2025 1:00 PM EST Office Visit [facility] Nephrology [address] [place], [place] [id number] Nafisa Stringer MD [address] [place] [address] documented as of this encounter Goals Goal Patient Goal Type Associated Problems Recent Progress Patient-Stated? Author Knowledge Deficit General No Margaret Dickinson, KEMAR Note: Chemotherapy education provided and reviewed. documented as of this encounter Procedures Procedure Name Priority Date/Time Associated Diagnosis Comments XR KNEE BILATERAL AP LATERAL INTERNAL AND EXTERNAL OBLIQUES Routine 05/11/2025 1:39 PM EDT Pain in both knees, unspecified chronicity documented in this encounter Results * XR KNEE BILATERAL AP LATERAL INTERNAL AND EXTERNAL OBLIQUES (05/11/2025 1:39 PM EDT) Narrative ClintonrLopez - 05/11/2025 1:39 PM EDT Please see physician's note from office encounter for x-ray imaging result us Caitlin Avila NP IMG DIAGNOSTIC IMAGING ORDERABLE S Final Result documented in this encounter Visit Diagnoses Diagnosis Pain in both knees, unspecified chronicity documented in this encounter Care Teams Showroom Consultant Relationship Specialty Start Date End Date Laureano Marin MD [address] [place] [id number] PCP - General Family Medicine 07/09/22 Gerry Bae MD [address] [facility] [place] [address] Medical Oncologist Internal Medicine-Hematology and Oncology 07/20/22 documented as of this encounter
--- OUTSIDE RECORDS SUMMARY | 2025-05-25 13:45 | XMS_ITS | Encounter Summary ---
Author Organization [facility] Address [address] [place] [place] [id number] Care Team Providers Care Manager Steel Name Role Phone Laureano Marin MD Primary Care Provider + [phone] Gerry Bae MD Unavailable [phone] Reason for Visit * Reason Comments Follow-up Injections Follow-up Injections Encounter Details Date Type Department Care Team (Late st Contact Info) Description 05/25/2025 1:45 PM EST Office Visit [facility] [address] [address] Caitlin Avila NP [address] [place] [address] Primary osteoarthritis of right knee (Primary Dx); Primary osteoarthritis of left knee Social History [...] Refills Last Filled Start Date End Date HYDROcodone-acetamin ophen (NORCO) 5-325 mg Oral TabletIndications:Pr imary osteoarthritis of right knee,Primary osteoarthritis of left knee Take 1-2 Tablets by mouth daily. Take 30-45 minutes prior to gel injections. 2 Tablet 05/25/2025 documented in this encounter Progress Notes * Caitlin Avila NP - 05/25/2025 1:45 PM ESTAssociated Order(s): Large Joint Injection/Arthrocentesis: bilateral knee Post-Procedure Diagnose(s): Primary osteoarthritis of right knee; Primary osteoarthritis of left knee Large Joint Injection/Arthrocentesis: bilateral knee on 05/25/2025 1:45 PM Indications: pain Details: 22 G needle, superolateral approach Medications (Right): 2 mg sodium hyaluronate 16.8 mg/2 mL Medications (Left): 2 mg sodium hyaluronate 16.8 mg/2 mL Outcome: tolerated well, no immediate complications Procedure, treatment alternatives, risks and benefits explained, specific risks discussed. Consent was given by the patient. Patient was prepped and draped in the usual sterile fashion. * Caitlin Avila NP - 05/25/2025 1:45 PM EST Images from the original note were not included. [address] [phone] [place], [place] [phone] [place], [place] Yudi Vasquez 1950 Chief Complaint Patient presents with Right Knee - Follow-up, Injections Left Knee - Follow-up, Injections Subjective: Yudi Vasquez is a 74 y.o. female is presenting today for a viscosupplementation injection of thebilateral knee(s)-- Gelsyn #2/3. Reminded of mechanism of action, possible side effects and duration for treatment. She felt the Hydrocodone prior to injection was helpful to reduce pain. Objective: Review of Systems Constitutional: Negative. Respiratory: Negative. Cardiovascular: Negative. Gastrointestinal: Negative. Musculoskeletal: Positive for joint pain. Skin: Negative. There is no height or weight on file to calculate BMI. On physical examination the patient is alert and oriented x3. Appropriate mood for the conversation. Well-developed and well-nourished in appearance. Gait examination reveals no obvious abnormalities. Skin of bilateral upper and lower extremities with no obvious rash or lesions. Motor control intact of the bilateral upper and lower extremities. No evidence of obvious lymphedema of bilateral lowerextremities. Standing exam reveals no gross abnormality of alignment of the lower extremities. Respiratory rate is normal by clinical examination. Pulse rate is normal by peripheral pulse examination. Examination of the bilateral knee shows that it is stable to varus/valgus stressing. Normal anterior/posterior drawer testing. Normal Low testing. Normal Kevan testing. There is tenderness to palpation over the medial joint line, as well as the patellofemoral joint. The skin is intact. Imaging: None today Assessment and Plan: Diagnoses and all orders for this visit: Primary osteoarthritis of right knee - Large Joint Injection/Arthrocentesis: bilateral knee Primary osteoarthritis of left knee - Large Joint Injection/Arthrocentesis: bilateral knee Plan: A bilateral knee viscosupplementation injection was given today. Under sterile conditions and from a superolateral approach, the knee joint was injected. This was well tolerated by the patient. Sterile dressings were applied. There were no obvious immediate complications after the procedure. I discussed with the patient about monitoring for pain, as well as the standard expectation after an injection. Patient was educated on the signs or symptoms of complication and will monitor for these. Keep follow-up as scheduled to determine response. If good symptomatic relief is achieved, patient may schedule for repeat injection after the series, in 6 months if needed. Patient agreeable and allquestions answered. documented in this encounter Plan of Treatment Upcoming Encounters Date Type Department Care Team (Late st Contact Info) Description 06/01/2025 1:45 PM EST Office Visit [facility] [address] [address] Caitlin Avila NP [address] [place] [address] 06/05/2025 10:00 AM EST Appointment [place] [address] 06/05/2025 10:20 AM EST [facility]ointment [facility] [place] [address] Gerry Bae MD [address] [facility] [place] [address] 06/05/2025 11:00 AM EST Appointment [facility] [place] [facility] [place] [id number] 07/02/2025 1:00 PM EST Office Visit [facility] Nephrology [address] [place] [address] Nafisa Stringer MD [address] [place] [address] [address] [place], [place] [id number] documented as of this encounter Goals Goal Patient Goal Type Associated Problems Recent Progress Patient-Stated? Author Knowledge Deficit General Margaret Robles APRN Note: Chemotherapy education provided and reviewed. documented as of this encounter Procedures Procedure Name Priority Date/Time Associated Diagnosis Comments SD ARTHROCENTESIS LARGE JOINT W/O US BILATERAL Routine 05/25/2025 1:45 PM EST Primary osteoarthritis of right knee Primary osteoarthritis of left knee documented in this encounter Results * SD ARTHROCENTESIS LARGE JOINT W/O US BILATERAL (05/25/2025 1:45 PM EST) Narrative [facility] - 05/25/2025 1:45 PM EST Caitlin Avila NP 05/25/2025 2:14 PM Large Joint Injection/Arthrocentesis: bilateral knee on 05/25/2025 1:45 PM Indications: pain Details: 22 G needle, superolateral approach Medications (Right): 2 mg sodium hyaluronate 16.8 mg/2 mL Medications (Left): 2 mg sodium hyaluronate 16.8 mg/2 mL Outcome: tolerated well, no immediate complications Procedure, treatment alternatives, risks and benefits explained, specific risks discussed. Consent was given by the patient. Patient was prepped and draped in the usual sterile fashion. us Caitlin Avila NP PROCEDURE/MINOR SURGICAL ORDERAB LES Final Result [facility] documented in this encounter Visit Diagnoses Diagnosis Primary osteoarthritis of right knee- Primary Primary localized osteoarthrosis, lower leg Primary osteoarthritis of left knee Primary localized osteoarthrosis, lower leg documented in this encounter Administered Medications Inactive Administered Medications - up to 1 most recent administrations Medication Order MAR Action Action Date Dose Rate Site sodium hyaluronate (GELSYN-3) intra-articular injection 2 mg 2 mg, Intra-articular, ONCE PRN, 1 dose, Starting on Wed05/25/25 at 1345, Until Wed05/25/25 at 1345, Dx: 1. Primary osteoarthritis of right knee 2. Primary osteoarthritis of left kneeIndications:Primary osteoarthritis of right knee,Primary osteoarthritis of left knee Given 05/25/2025 1:45 PM EST 2 mg Left Knee sodium hyaluronate (GELSYN-3) intra-articular injection 2 mg 2 mg, Intra-articular, ONCE PRN, 1 dose, Starting on Wed05/25/25 at 1345, Until Wed05/25/25 at 1345, Dx: 1. Primary osteoarthritis of right knee 2. Primary osteoarthritis of left kneeIndications:Primary osteoarthritis of right knee,Primary osteoarthritis of left knee Given 05/25/2025 1:45 PM EST 2 mg Right Knee documented in this encounter Discontinued Medications Medication Sig Discontinue Reason Start Date End Da te HYDROcodone-acetaminophen (NORCO) 5-325 mg Oral TabletIndications:Primary osteoarthritis of right knee,Primary osteoarthritis of left knee Take 1 Tablet by mouth daily. Take 30-45 minutes prior to gel injections. Reorder 05/16/2025 05/25/2025 documented as of this encounter Care Teams Manager Steel Relationship Specialty Start Date End Date Laureano Marin MD [address] [place] [id number] PCP - General Family Medicine 07/09/22 Gerry Bae MD [address] [facility] [place] [address] Medical Oncologist Internal Medicine-Hematology and Oncology 07/20/22 documented as of this encounter
--- OUTSIDE RECORDS SUMMARY | 2025-05-28 14:00 | XMS_ITS | Encounter Summary ---
Author Organization [place] [address] Care Team Providers Care Bar Finish Operator Name Role Phone Laureano Marin MD Primary Care Provider + [phone] Gerry Bae MD Unavailable [phone] Reason for Referral * Biopsy Procedure (Routine) - Authorization Not Needed Specialty Diagnoses / Procedures Referred By Star hi Referred To Contact Diagnoses AK (actinic keratosis) Procedures AZ DESTRUCTION PREMALIGNANT LESION 15/> Jeniffer Maguire MD [address] [place] [address] Phone: tel: [place]: [place] [address] [place] [address] Phone: tel: fax: Referral ID Status Reason Start Date Expiration Date Visits Requested Visits Authorized [id number] Authorization Not Needed 05/28/2026 1 1 Reason for Visit * Biopsy Procedure (Routine) - Authorization Not Needed Specialty Diagnoses / Procedures Referred By Star hi Referred To Contact Diagnoses AK (actinic keratosis) Procedures AZ DESTRUCTION PREMALIGNANT LESION 15/> Jeniffer Maguire MD [address] [place] [address] Phone: tel: [place]: [place] [address] [place] [address] Phone: tel: fax: Referral ID Status Reason Start Date Expiration Date Visits Requested Visits Authorized [id number] Authorization Not Needed 05/28/2026 1 1 Encounter Details Date Type Department Care Team (Late st Contact Info) Description 05/28/2025 2:00 PM EST Office Visit [facility] [address] [place] [address] [place] [address] [place] [phone] Neoplasm of unspecified behavior of bone, soft tissue, and skin (Primary Dx); AK (actinic keratosis); Verruca vulgaris; Disturbance of skin sensation Social History Tobacco Use Types Packs/Day Years [...] as of this encounter Progress Notes * Jeniffer Maguire MD - 05/28/2025 2:00 PM EST Dermatology Progress Note [facility] [address] [place] [id number] Chief complaint: fse History of Present Illness: Yudi Vasquez is a 74 y.o. 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 She met with Dr. Farmer in consultation on 07/27/24; given the large size, rapidly growing nature and location of the moderately differentiated SCC on her right cheek, they discussed neoadjuvant cemiplimab to decrease tumor size or possibly treat the tumor. Patient ultimately underwent consult with ENT, specifically Dr. Alvarado, on 08/11/24, at which time, they ultimately collectively agreed for surgical removal. She underwent WLE with parotidectomy with one positive right parotid SLNB. She met with Dr. Oconnor to discuss adjuvant radiation in 09/2024 but opted against therapy with plan for monitoring instead. Last seen 01/2025, at which time biopsy of the right dorsal distal radial forearm showed a SCC and 30 AKs were treated with cryotherapy. She followed up for EXC with Dr. Parikh 02/2025, at which time biopsies showed: 1. right fourth finger: AK, efudex 2. left first finger: SCC, Mohs 3. left fifth finger: AK, efudex Today, she states a few concerning spots, Patient does not want an FSE. Notes that her health has overall been good. Notes she is now off of lenalidomide. Dermatology history: SCC right dorsal distal radial forearm, s/p EXC by Dr. Parikh 02/2025 SCC left first finger, s/p Mohs by Dr. Farmer 03/2025 SCC right 2nd MCP, s/p Mohs by Dr. Farmer 10/2024 SCC left dorsal radial hand, s/p Mohs by Dr. Farmer 09/2024 SCC right anterior medial ankle, s/p Mohs by Dr. Farmer 10/2024 SCC left lateral neck, s/p EXC by Dr. Maguire 08/2024 SCC, right preauricular cheek: FINAL DIAGNOSIS: A. Skin, right face, wide local excision: Squamous cell carcinoma, moderately differentiated (2.7 cm), completely excised. The tumor depth of invasion is 5 mm. Lymphovascular and perineural invasion are not identified. See case summary for detailed staging. B. Lymph node, sentinel, right parotid, regional resection: Metastatic squamous carcinoma in one ofone lymph nodes (07/12). Deposit measures 0.6 cm. Extranodal extension is not identified. C. Lymph node, right parotid, regional resection: One benign lymph node (0/1). D. Soft tissue, neck dissection: Benign fibroadipose tissue. E. Parotid gland, right, parotidectomy: Benign salivary gland. F. Lymph nodes, right level 2B, regional resection: Thirteen benign lymph nodes (0/13). G. Lymph nodes, right level 2A, regional resection: Twenty benign lymph nodes (0/20). H. Lymph nodes, right level 3, regional resection: Eight benign lymph nodes (0/8). CASE SUMMARY: Standard: AJCC 8 SPECIMEN Procedure: Excision, wide TUMOR Tumor Focality: Unifocal Multiple Primary Sites: Not applicable Tumor Site: Cheek Tumor Laterality: Right Tumor Size: 2.7 cm Histologic Type: Squamous cell carcinoma, NOS Histologic Grade: G2: Moderately differentiated Tumor Depth of Invasion (DOI): 5 mm Lymphatic and / or Vascular Invasion: Not identified Perineural Invasion: Not identified MARGINS Margin Status for Tumor: All margins negative for invasive and non-invasive tumor Distance from Invasive Tumor to Closest Margin: 6 mm to deep REGIONAL LYMPH NODES Regional Lymph Node Status: Tumor present in regional lymph nodes Number of Lymph Nodes with Tumor: 1 (sentinel) Laterality of Lymph Node with Tumor: Right Size of Largest Brian Metastatic Deposit: 0.6 cm Extranodal Extension (MEGAN): Not identified DISTANT METASTASIS Distant Sites Involved: Not applicable pTNM CLASSIFICATION (AJCC 8th Edition) Prior Procedure Classification: No information from prior procedure is included in this report pT Category pT2: Tumor larger than 2 cm, but smaller than or equal to 4 cm in greatest dimension pN Category pN1: Metastasis in a single ipsilateral lymph node, 3 cm or smaller in greatest dimension and MEGAN(-) Family history of NMSC / melanoma -- yes, father Review of Systems: No other reported skin problems. Constitutional: no reported F/C Eyes: no reported dry eyes/Sjogren's Ears/Nose/mouth/throat: no reported oral sores, no reported dry mouth C/V: no reported chest pain Resp: no reported SOB, no reported pleurisy GI: no reported abd pain, no reported N/V : no reported pain with urination, no reported blood in urine M/S: no reported joint complaints, no reported arthralgias, no reported muscle weakness, no reported trouble brushing hair/standing up from seated position Neuro: no reported seizures, no reported RUSSO's Psych: no reported change in mood Endo: no reported weight gain/loss Heme/lymph: no reported easy bruising, no reported swollen glands/lymph nodes. No reported hx of clotting. Allergic/Immunologic: no reported symptoms of allergy No reported Raynaud symptoms ? Medical History: Patient Active Problem List Diagnosis Urticaria Other [...] humerus Obesity, morbid, BMI 50 or higher ([facility]) Diabetes mellitus type 2 in obese Chronic [...] disease, without long-term current use of insulin ([facility]) Stage 3a chronic kidney disease ([facility]) Class 3 severe obesity with serious comorbidity and body mass index (BMI) of 45.0 to 49.9 in adult ([facility]) Medications: Current Outpatient Medications on File Prior to Visit Medication Sig Dispense Refill allopurinoL (ZYLOPRIM) 300 mg Oral Tablet Take 300 mg by mouth every other day. aspirin 81 mg Oral Tablet, Delayed Release (E.C.) Take 81 mg by mouth daily. calcium carbonate-vitamin D (OYSTER SHELL CALCIUM-VIT D3) 500 mg-5 mcg (200 unit) Oral Tablet Take 1 Tablet by mouth 2 times daily (with meals). 60 Tablet 11 cetirizine (ZYRTEC) 10 mg Oral Tablet TAKE 1 TABLET BY MOUTH DAILY NEEDED FOR ALLERGY SYMPTOMS (Patient not taking: Reported on 02/13/2025) citalopram (CELEXA) 20 mg Oral Tablet Take 20 mg by mouth daily. fUROsemide (LASIX) 20 mg Oral Tablet Take 1 Tablet by mouth every 48 hours. gabapentin (NEURONTIN) 600 mg Oral Tablet Take 600 mg by mouth 2 times daily. HYDROcodone-acetaminophen (NORCO) 5-325 mg Oral Tablet Take 1 Tablet by mouth daily. Take 30-45 minutes prior to gel injections. 3 Tablet 0 JANUVIA 100 mg Oral Tablet lidocaine-prilocaine (EMLA) Top Cream Apply one nickel sized glob over port approx 30 minutes before appt. DO NOT RUB IN. Cover with plastic wrap 30 g 2 methylPREDNISolone (MEDROL DOSPACK) 4 mg Oral Tablets, Dose Pack Follow package directions 21 Tablet 0 metoprolol (LOPRESSOR) 50 mg Oral Tablet Take [...] mouth every 12 hours. 60 Tablet 3 No current facility-administered medications on file prior to visit. Allergies: Allergies Allergen Reactions Penicillins Hives Sulfa (Sulfonamide Antibiotics) Nausea Only and Other (See Comments) Fever and chills Family History: Family History Problem Relation Age of Onset Cancer Mother colon Heart Attack Father Heart Disease Father age 93 Heart Attack Brother Diabetes Maternal Grandfather and many others in family Heart Disease Brother massive h. attack at age 46 Anesth Problems Neg Hx Social History: Social History Socioeconomic History Marital status: Spouse name: Not on file Number of children: Not on file Years of education: Not on file Highest education level: Not on file Occupational History Not on file Tobacco Use Smoking status: Never Smokeless tobacco: Never Vaping Use Vaping status: Never Used Substance and Sexual Activity Alcohol use: Never Drug use: Never Sexual activity: Not on file Other Topics Concern Not on file Social History Narrative Not on file Social Drivers of Health Financial Resource Strain: Not on file Food Insecurity: No Food Insecurity (03/09/2025) Received from [facility] Yearly Questionnaire Do you need any assistance with obtaining housing, meals, medication, transportation or medical equipment?: No Assistance needed for:: Not on file Transportation Needs: No Transportation Needs (03/09/2025) Received from [facility] Yearly Questionnaire Do you need any assistance with obtaining housing, meals, medication, transportation or medical equipment?: No Assistance needed for:: Not on file Physical Activity: Not on file Stress: Not on file Social Connections: Not on file Intimate Partner Violence: Not on file Housing Stability: Low Risk (03/09/2025) Received from [facility] Yearly Questionnaire Do you need any assistance with obtaining housing, meals, medication, transportation or medical equipment?: No Assistance needed for:: Not on file Exam/Assessment/Plan: Ting Villar MA present Well-appearing patient in NAD Mood and affect wnl Focused exam of the face, ears, forearms and hands performed per patient's preference All existing scars were free of any evidence of disease. Extremities without edema, cyanosis. Skin type I There were no vitals taken for this visit. Pertinent exam findings include: T2N1M0 SCC on the right cheek, s/p WLE and parotidectomy with 1 positive parotid SLNB, remainder ofnodes negative, no perivascular or lymphovascular invasion: well healed advancement flap scar involving the right lateral cheek; well healed linear scar involving the right neck. No palpable lymphadenopathy on palpation of the bilateral anterior and posterior cervical, submandibular, submental lymph node basins. - status post WLE and parotidectomy with 1 SLNB positive in 08/[address] Alvarado at ENT - previously reviewed high risk nature of tumor given size (2.7 cm), moderate differentiation, positive SLNB with recommendation for close follow up with ENT, radiation oncology and dermatology - has met with Dr. Oconnor for adjuvant radiotherapy 09/29/24, however, she ultimately elected against radiation therapy - reassurance provided that no evidence of recurrence on exam today - continue strict photoprotection in addition to close follow up with dermatology and ENT - recommend follow up with derm q3-4 months until July 2025 History of non-melanoma skin cancer: well healed scar without sign of recurrence on the right dorsal forearm; one biopsy on the left dorsal hand today as below -- notably has had 2 prior SCC here - no evidence of recurrence on the right forearm; reassurance provided - recommend monthly self skin exams - recommend strict sun protection with SPF30 or above - regular clinician exams - expectant care Neoplasm of unspecified behavior of bone, soft tissue and skin: right dorsal radial wrist 4 mm pink crusted papule right fourth finger 4 mm pink crusted papule left dorsal hand: ~ 15 mm thin rough keratotic plaque - DDx includes SCC vs HAK for all 3 sites - Number of biopsies: 3 - additional care to depend on final path report PROCEDURE: Shave biopsy/excision. Consent obtained. Side effects reviewed including but not limited to: scar, bleeding, infection, incomplete removal, nerve damage, allergic reaction to lidocaine, recurrence, pain?.? Prep: propyl alcohol swab ?Anesthesia: 1% Lidocaine with epinephrine Shave?: Dermablade Hemostasis: Drysol Dressing: Petrolatum and bandaid Wound care instructions provided ? Actinic keratoses: rough gritty pink papules involving the left helix (2), right forearm (4), [id number] finger (3), right 4th finger (1), right index finger (1), left forearm (1), left hand (7), [id number] finger (2), left 4th finger (4), left nasal ala (1), left nasal bridge (3), left anabaptist (2), left forehead (1), right lateral braw (1), right forehead (3), right helix (1) - discussed diagnosis, including potential to evolve into SCC if left untreated - given discrete nature, recommend cryotherapy PROCEDURE (Cryotherapy) Number of lesions treated: >15 Risks include but not limited to erythema, blistering, hyperpigmentation, hypopigmentation, scar, incomplete removal, need for multiple treatments, and recurrence. Verruca vulgaris: verrucous papule involving the left neck (1) - discussed diagnosis - recommend cryotherapy - recommend notifying me if not resolved in 1 month PROCEDURE: CRYOTHERAPY 1 lesion was treated with cryotherapy via liquid nitrogen. Risks include but not limited to erythema, blistering, hyperpigmentation, hypopigmentation, scar, incomplete removal, need for multiple treatments, and recurrence. Verrucous keratosis: keratotic papule involving the left 5th PIP - as demonstrated on biopsy 06/2024 - given irritating to patient, recommend cryotherapy today - recommend notifying me if not resolved in 1 month PROCEDURE (Cryotherapy) Number of lesions treated: 1 Risks include but not limited to erythema, blistering, hyperpigmentation, hypopigmentation, scar, incomplete removal, need for multiple treatments, and recurrence. Dermatoheliosis: diffuse actinic changes involving sun exposed sites - strict photoprotective measures; specifically, recommend broad spectrum sunscreen with SPF30 or above. Recommend reapplication q2-3 hours when outside for prolonged periods. In addition, recommend broad rimmed hat Return to clinic 3-4 months for FSE, sooner if needed. Strict return precautions discussed. All concerns and questions addressed at today's visit. Patient understands to contact us with any interim concerns. Jeniffer Raphael MD FAAD documented in this encounter Miscellaneous Notes * Patient Instructions - Ting Villar MA - 05/28/2025 2:00 PM EST Post Biopsy Care Keep the bandage over the biopsy site until the next day. Occasionally, the biopsy site bleeds after you leave the doctor's office. This is more likely in people taking blood-thinning medications. Ifthis occurs, apply direct pressure to the wound for 10 to 20 minutes. If bleeding continues, contact our office at [phone]. All biopsies cause a small scar. Some people develop a prominent, raised scar. The risk of this is increased when a biopsy is done on the neck or upper torso, such as the back or chest. Initially, the scar will be pink and then fade to white or sometimes brown. Scars fade gradually. The scar's permanent color will be evident one or two years after the biopsy. Try not to bump the biopsy site area or do activities that might stretch the skin. Stretching the skin could cause the wound to bleed or enlarge the scar. Healing of the wound can take several weeks, but is usually complete within two months. Wounds on legs and feet tend to heal slower than those on other areas of the body. How to care for the biopsy site while it heals: Wash your hands with soap and water before touching the biopsy site. Wash the biopsy site with soap and water. If the biopsy site is on your scalp, use shampoo. Rinse the site well. Pat the site dry with a clean towel. Cover the site with vasloline or Aquaphor and an adhesive bandage that allows the skin to ventilate. Continue caring for the biopsy site until the stitches are removed. For shave biopsies that don't require stitches, continue wound care until the skin is healed. When to expect follow up: The sample that was taken from you skin will be sent to a pathologist to review. Sometimes we send samples to a specialist called a dermatopathologist. Timing varies on results from one to three weeks. We will call you with results as soon as we have them even if the sample was benign. If you do not hear from us in three weeks feels free to give us a call. documented in this encounter Plan of Treatment Upcoming Encounters Date Type Department Care Team (Late st Contact Info) Description 06/01/2025 1:45 PM EST Office Visit [facility]ja [facility] [address] [facility] [address] [place] [address] Caitlin Avila NP [address] [place] [address] 06/05/2025 10:00 AM EST Appointment [facility] [place], [place] [id number] 06/05/2025 10:20 AM EST [facility]ointment [facility] [place], [place] [id number] Gerry Bae MD [address] [place] [phone] 06/05/2025 11:00 AM EST Appointment [facility] [place], [place] [id number] 07/02/2025 1:00 PM EST Office Visit [facility] Nephrology [address] [place] [address] Nafisa Stringer MD [address] [place] [address] Scheduled Orders Name Type Priority Associated Diagnoses Orde r Schedule AZ TANGENTIAL BIOPSY SKIN SINGLE LESION AZ Charge Routine Neoplasm of unspecified behavior of bone, soft tissue, and skin Ordered: 05/28/2025 AZ TANGENTIAL BIOPSY SKIN EA SEP/ADDITIONAL LESION AZ Charge Routine Neoplasm of unspecified behavior of bone, soft tissue, and skin Ordered: 05/28/2025 AZ DESTRUCTION PREMALIGNANT LESION 15/> AZ Charge Routine AK (actinic keratosis) Ordered: 05/28/2025 documented as of this encounter Goals Goal Patient Goal Type Associated Problems Recent Progress Patient-Stated? Author Knowledge Deficit General No Margaret Dickinson APRN Note: Chemotherapy education provided and reviewed. documented as of this encounter Procedures Procedure Name Priority Date/Time Associated Diagnosis Comments DERMATOPATHOLOGY TISSUE SEND OUT REQUEST Routine 05/31/2025 2:23 PM EST Neoplasm of unspecified behavior of bone, soft tissue, and skin documented in this encounter Results * DERMATOPATHOLOGY TISSUE SEND OUT REQUEST (05/31/2025 2:23 PM EST) Tissue us Jeniffer Maguire MD PATHOLOGY ORDERABLES Fin al Result Performing Organization Address City/State/[facility] Co de Phone Number [facility] [address] [facility] [place] [place] [address] documented in this encounter Visit Diagnoses Diagnosis Neoplasm of unspecified behavior of bone, soft tissue, and skin- Primary AK (actinic keratosis) Actinic keratosis Verruca vulgaris Viral warts, unspecified Disturbance of skin sensation documented in this encounter Care Teams Bar Finish Operator Relationship Specialty Start Date End Date Laureano Marin MD [address] [place] [address] PCP - General Family Medicine 07/09/22 Gerry Bae MD [address] [facility] [place] [address] Medical Oncologist Internal Medicine-Hematology and Oncology 07/20/22 documented as of this encounter
--- NOTE | 2025-05-31 13:00 | MM_ITS ---
PROCEDURE INFORMATION: Exam: MG Bilateral Screening 3D Mammography Exam date and time: 05/31/2025 1:09 PM Age: 74 years old Clinical indication: Screening examination TECHNIQUE: Imaging protocol: Bilateral Screening tomosynthesis and 2D mammography including computer-aided detection (CAD) when performed. COMPARISON: 1. MG MM DIG SCREENING MAMM BI W/CAD 01/01/2020 12:53 PM 2. MG DMSB DIG MAMM-SCREEN MEAGAN W/CAD 07/20/2016 11:08 AM FINDINGS: MAMMOGRAPHY: Breast composition: There are scattered areas of fibroglandular density. Mass: No suspicious masses. Architectural distortion: None. Calcifications: No suspicious calcifications. Asymmetric density: None. Skin thickening: None. Axillary adenopathy: None. IMPRESSION: No mammographic evidence of malignancy. Annual screening is recommended unless otherwise clinically indicated. ASSESSMENT: BI-RADS Category 1: Negative.
--- OUTSIDE RECORDS SUMMARY | 2025-05-31 14:42 | XMS_ITS | Encounter Summary ---
Author Organization [place] [address] Care Team Providers Care Photoengraving Proofer Apprentice Name Role Phone Laureano Marin MD Primary Care Provider + [phone] Gerry Bae MD Unavailable [phone] Reason for Visit * Reason Onset Date Comments Medication Management 04/19/2025 Medication manage,emt Encounter Details Date Type Department Care Team (Late st Contact Info) Description 04/19/2025 Telephone [facility] [place] [address] Gerry Bae MD [address] [place], [place] [phone] Medication Management (Medication manage,emt) Social History Tobacco Use Types Packs/Day Years [...] on file documented as of this encounter Miscellaneous Notes * Telephone Encounter - Esther Batista RN - 04/19/2025 2:46 PM EDT Discussed with rajan Baig APRN to use the medrol dose pack. Call to patient to let her know. She vu. * Telephone Encounter - Daysi Siu, Clerical Staff - 04/19/2025 12:27 PM EDT Reason for call: Patient was prescribed the below medication by Lex Trinidad and wanted to make sure it was OK for her to take methylPREDNISolone (MEDROL DOSPACK) 4 mg Oral Tablets, Dose Pack Preferred call back number: documented in this encounter Plan of Treatment Upcoming Encounters Date Type Department Care Team (Late st Contact Info) Description 06/01/2025 1:45 PM EST Office Visit Anuja LI [address] [facility] [address] [place] [address] Caitlin Avila NP [address] [place], [place] [phone] 06/05/2025 10:00 AM EST Appointment [facility] [place], [place] [phone] 06/05/2025 10:20 AM EST Appointment [facility] [place], [place] [phone] Gerry Bae MD [address] [place] [address] [phone] 06/05/2025 11:00 AM EST Appointment [place] [address] 07/02/2025 1:00 PM EST Office Visit [facility] Nephrology [address] [place] [address] Nafisa Stringer MD [address] [place] [phone] documented as of this encounter Goals Goal Patient Goal Type Associated Problems Recent Progress Patient-Stated? Author Knowledge Deficit General No Margaret Dickinson APRN Note: Chemotherapy education provided and reviewed. documented as of this encounter Visit Diagnoses Not on filedocumented in this encounter Care Teams Photoengraving Proofer Apprentice Relationship Specialty Start Date End Date Laureano Marin MD [address] [place] [address] PCP - General Family Medicine 07/09/22 Gerry Bae MD [address] [facility] [place] [address] Medical Oncologist Internal Medicine-Hematology and Oncology 07/20/22 documented as of this encounter
--- OUTSIDE RECORDS SUMMARY | 2025-05-31 14:42 | XMS_ITS ---
Author Organization [facility] Address [address] [place] [address] Phone Care Team Providers Care Animation Camera Operator Name Role Phone Laureano Marin MD Primary Care Provider + [phone] Gerry Bae MD Unavailable [phone] Active Problems Problem Noted Date Diagnosed Date Type 2 diabetes mellitus wit h stage 3a chronic kidney disease, without long-term current use of insulin 04/02/2025 Assessment & Plan (04/02/2025 3:56 PM EDT): With no evidence of large proteinuria Obtain following work up Will consider SGLT-2 /ACE1 once results are reviewed Stage 3a chronic kidney disease 04/02/2025 Assessment & Plan (04/02/2025 3:57 PM EDT): Secondary to diabetes, advancing age and multiple myeloma on chemo Baseline Cr 1.2-1.4, GFR between 42 -47 ml/mn 24 hour urine protein 168 mg/d BP is at goal Overall her risk for progression is low Obtain following work up Once results are reviewed she may benefit from switching Januvia to SGLT-2 for renal protection and addition of Lisinopril Counseled on at least 60 oz/d fluid intake OK to take EOD Lasix Avoid NSAIDs, and cut back on red meat Class 3 severe obesity with serious comorbidity and body mass index (BMI) of 45.0 to 49.9 in adult 04/02/2025 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 03/21/2025 Encounter for postoperative wound check 10/11/19 AK (actinic keratosis) 10/10/2024 Squamous cell carcinoma of right lower leg 10/03 Squamous cell carcinoma of preauricular region 0 07/27/2024 Squamous cell cancer of skin of left hand 2024 Squamous cell cancer of skin of finger, right Squamous cell carcinoma of lower leg, right 07/12 Obesity, morbid, BMI 50 or higher 12/27/2022 Diabetes mellitus type 2 in obese 12/27/2022 Chronic pain due to neoplasm 12/27/2022 Thrombocytopenia 12/27/2022 Lesion of right humerus 10/07/2022 Pathological fracture of left humerus 10/07/2022 Closed nondisplaced comminut ed fracture of shaft of right humerus 10/07/2022 Multiple myeloma 08/02/2022 Assessment & Plan (04/02/2025 3:57 PM EDT): Currently on chemotherapy with Daratumumab and Zometa (at dose reduction given renal dysfunction) Follows with Dr. Bae Bone metastases 07/30/2022 Pathological fracture, left humerus, initial encounter for fracture 07/30/2022 Overview (07/30/2022): Added automatically from request for surgery [id number] Closed nondisplaced comminut ed fracture of shaft of right humerus 07/08/2022 Overview (07/08/2022): Added automatically from request for surgery [id number] Humerus lesion, right 07/08/2022 Overview (07/08/2022): Added automatically from request for surgery [id number] Synovitis of right shoulder 06/22/2022 Acute pain of right knee 02/11/2022 Neoplasm of uncertain behavior of skin 0 Urticaria 12/20/2008 Overview (02/01/2022): ICD-10 Transition Other specified disease of sebaceous glands 12/10 Other dyschromia 12/20/2008 Contact dermatitis and other eczema, due to unspecified cause 12/20/2008 Actinic keratosis 12/20/2008 Current Treatment and Therapy Plans ONC DaraRd (daratumumab subcut (1800) + lenalidomide (25) + dexamethasone (40)) Until Progression or Unacceptable Toxicity* Plan Start Date:08/09/2022 Plan Provider:Gerry Bae MD Linked Problems Multiple myeloma not having achieved remission (HCC) Treatment Medications Current Day (Day 1 , Cycle 37 - Planned for 06/05/2025) Next Day (Day 1, Cycle 38 - Planned for 07/03/2025) No medications scheduled. No medications schedul ed. No medications scheduled. ONC PORT FLUSH & SEH ZOMETA PLAN & SEH IVIG Q8W LANA* Plan Start Date:08/03/2022 Plan Provider:Gerry Bae MD Linked Problems Multiple myeloma not having achieved remission (HCC) Treatment Medications No medications scheduled. ONCSEH hydration + pre-meds + electrolytes* Plan Start Date:11/15/2023 Plan Provider:Gerry Bae MD Linked Problems Malignant neoplasm metastati c to bone (HCC) Treatment Medications No medications scheduled. Past Treatment and Therapy Plans No past plan information found.
--- OUTSIDE RECORDS SUMMARY | 2025-05-31 14:43 | XMS_ITS | Clinical Summary ---
Author Organization [facility] Address [address] [place] [address] Care Team Providers Care Mold Tooling Technician Name Role Phone Laureano Marin MD Primary Care Provider + [phone] Social History Tobacco Use Types Packs/Day Years Used Date Smoking Tobacco: Never Assessed Comments Unknown Sex and Gender Information Value Date Recorded Sex Assigned at Not on file Legal Sex Female 8:55 PM EDT Gender Identity Not on file Sexual Orientation Not on file Plan of Treatment Health Maintenance Due Date Last Done Comments [facility]-Bone Density Scan 1952 [facility]-Depression Screening 1952 [facility]-Infant/Child/Adol SDOH Screenings 1950 [facility]- SDOH Screenings 1970 [facility]-Adult SDOH Screenings 1970 CT Colonography 1997 Colonoscopy 1997 FIT-DNA 1997 FIT 1997 FOBT 1997 Sigmoidoscopy 1997 [facility]-Colorectal Cancer Screening 1997 [facility]-Zoster Vaccines (1 of 2) 2002 [facility]-Pneumococcal Vaccine: 50+ Years (2 of 2 - PCV) 06/11/2022 06/11/2021 [id number] Vaccine ( season) 2025 01/19/2022, 05/09/2021, 08/20/2020, [...] patient's age to complete this topic Insurance [facility] MEDICARE Care Teams Mold Tooling Technician Relationship Specialty Start Date End Date Laureano Marin MD [address] [facility] [address] [place] [address] PCP - General 06/18/22
--- OUTSIDE RECORDS SUMMARY | 2025-05-31 14:43 | XMS_ITS | Encounter Summary ---
Author Organization [facility] Address [address] [place] [address] Care Team Providers Care Heart Specialist Name Role Phone Laureano Marin MD Primary Care Provider + [phone] Gerry Bae MD Unavailable [phone] Reason for Visit * Reason Onset Date Comments Knee Pain 05/15/2025 Encounter Details Date Type Department Care Team (Late st Contact Info) Description 05/15/2025 Telephone [facility] [address] [id number] Caitlin Avila NP [address] [place] [address] Knee Pain Social History Tobacco Use Types Packs/Day Years [...] encounter Miscellaneous Notes * Telephone Encounter - Patti Silvestre - 05/16/2025 11:02 AM EST Yudi is schedule for her Bilateral Knee Gelsyn Injections on Wednesday, May 18 at the [facility] Office. * Telephone Encounter - Mackenzie Arellano, Clerical Staff - 05/15/2025 3:42 PM EST GOOD TO SCHEDULE GELSYN BILATERAL KNEES. * Telephone Encounter - Alise Montesinos - 05/15/2025 3:03 PM ESTSummary: GELSYN OK TO SCHEDULE, NO PREPAY REQUIRED * Telephone Encounter - Mackenzie Arellano, Clerical Staff - 05/15/2025 2:30 PM ESTSummary: GELSYN BILATERAL KNEES PLEASE REVIEW BENEFITS IN CHART NPC- Case# [id number] documented in this encounter Plan of Treatment Upcoming Encounters Date Type Department Care Team (Late st Contact Info) Description 06/01/2025 1:45 PM EST Office Visit [facility] [address] [address] Caitlin Avila NP [address] [place] [address] 06/05/2025 10:00 AM EST Appointment [facility] [address] 06/05/2025 10:20 AM EST [facility]ment [facility] [place] [address] Gerry Bae MD [address] [place] [id number] 06/05/2025 11:00 AM EST Appointment [place] [address] 07/02/2025 1:00 PM EST Office Visit [facility] Nephrology [place] [address] [facility] [address] [place] [address] Nafisa Stringer MD [address] [place] [address] documented as of this encounter Goals Goal Patient Goal Type Associated Problems Recent Progress Patient-Stated? Author Knowledge Deficit General No Margaret Dickinson APRN Note: Chemotherapy education provided and reviewed. documented as of this encounter Visit Diagnoses Not on filedocumented in this encounter Care Teams Heart Specialist Relationship Specialty Start Date End Date Laureano Marin MD [address] [place] [phone] PCP - General Family Medicine 07/09/22 Gerry Bae MD 1 [facility] [address] [place] [id number] Medical Oncologist Internal Medicine-Hematology and Oncology 07/20/22 documented as of this encounter
--- OUTSIDE RECORDS SUMMARY | 2025-05-31 14:43 | XMS_ITS | Clinical Summary ---
Author Organization [facility] Address [address] [place] [address] Care Team Providers Care Bus Operator Name Role Phone Sarath Keen MD Primary Care Provider [phone] Nina Farmer MD Unavailable [phone] Source Comments This information has been disclosed [...] therelease of HIV test results or diagnoses. [id number] Allergies Active Allergy Reactions Criticality Noted Date [...] tablet 5 Active naloxone (NARCAN) 4 mg/actuation [place] Apply 1 spray in one nostril if [...] Description 03/09/2025 10:45 AM EDT Office Visit [facility] at [facility] [address] [place] [address] Ken Alvarado MD Cooper, John G, MD [...] = 0.6 oz pur e alcohol) 12/20/08 [facility] Utilities Answer Date Recorded In the past 12 months has [employer], gas, oil, or water [employer] threatened to shut off services in your [...] any time in the past 12 m [facility], were you homeless or living in a detention (including now)? No 09/07/2024 Yearly Questionnaire Answer [...] Screening (MyChart) 1997 Stool Testing (gFOBT) 1997 Immunization: RSV (Adult) (1 - Risk 50-74 years 1-dose series) 2002 Osteoporosis Screening (DXA Scan) 2002 Immunization: Pneumococcal (2 of 2 - PCV) 06/11/2022 06/11/2021 Diabetic Eye Exam (MyChart) 08/22/2024 Urine Albumin/Creatinine Ratio 08/22/2024 Hemoglobin A1C Monitoring ([employer]) 02/19/2025 08/22/2024 Immunization: COVID-19 ( season) 2025 05/27/2023, 01/19/2022, 05/09/2021, Additional history exists Immunization: Influenza ([employer]) (#1) 03/12/2025 05/16/2024, 07/06/2022, 06/11/2021, Additional history [...] 3.5 - 5.3 mmol/L 09/08/2024 7:58 AM EST [facility] Chloride 105 98 - 110 mmol/L 09/08/2024 7:58 AM EST [facility]ALTH [facility] CO2 28 21 - 33 mmol/L 09/08/2024 7:58 AM [facility] Anion Gap 7 3 - 16 mmol/L 09/08/2024 7:58 AM EST [facility] BUN 22 7 - 25 mg/dL 09/08/2024 7:58 AM [facility] Creatinine 1.09 0.60 - 1.30 mg/dL 09/08/2024 7:58 AM [facility] Glucose 103(H) 70 - 100 mg/dL 09/08/2024 7:58 AM [facility] Calcium 8.4(L) 8.6 - 10.3 mg/dL 09/08/2024 7:58 AM [facility] Phosphorus 2.8 2.1 - 4.5 mg/dL 09/08/2024 7:58 AM [facility] Albumin 3.6 3.5 - 5.7 g/dL 09/08/2024 7:58 AM [facility] Osmolality, Calculated 294 278 - 305 mOsm/kg 09/08/2024 7:58 AM EST [facility] EGFR 54 09/08/2024 7:58 AM [facility] Comment:As of 2021, the estimated [...] MD LAB BLOOD ORDERABLES Fin al Result [facility] [address] * (ABNORMAL) Hemoglobin A1c (08/22/2024 11:35 AM EST) Hemoglobin A1C 5.9(H) 4.0 - 5.6 % 08/22/2024 5:57 PM EST [facility] Comment: Hemoglobin A1c Interpretation [...] BLOOD ORDERABLES Final Result Performing Organization Address City/[facility]/ZIP Co de Phone Number [facility] [address] [facility]. [address] from Last 3 Months or Most Recently Relevant to Health Maintenance Insurance MEDICARE PPO COMP Advance Directives For more information, please contact: [phone] * Full Code (Latest Code Status on File) Date Activated Date Inactivated Comments 09/07/2024 4:34 PM 09/09/2024 8:38 PM Care Teams Bus Operator Relationship Specialty Start Date End Date Sarath Keen MD [address] [facility] [address] [place] [address] PCP - General Family Medicine 02/18/12 Nina Farmer MD [address] [place] [address] Referring Physician Dermatology 08/10/24
--- OUTSIDE RECORDS SUMMARY | 2025-05-31 14:44 | XMS_ITS | Encounter Summary ---
Author Organization [facility] Address [address] [place] [address] Care Team Providers Care Editor City Name Role Phone Laureano Marin MD Primary Care Provider + [phone] Gerry Bae MD Unavailable [phone] Encounter Details Date Type Department Care Team (Late st Contact Info) Description 05/16/2025 Telephone [facility] [address] [place] [address] Lorenzo Ribera MD [address] [place] [address] Social History Tobacco Use Types Packs/Day Years [...] encounter Miscellaneous Notes * Telephone Encounter - Vikas Carrera RMA - 05/16/2025 12:52 PM EST Spoke with patient and relayed this information. Patient stated an understanding. * Telephone Encounter - Caitlin Avila NP - 05/16/2025 11:51 AM EST Call her and tell her I sent over 3 Hydrocodone, 1 for each week. Tell her to take 30-45 min prior to appointment. She has to have a clamp truck driver. * Telephone Encounter - Red Reyna MA - 05/16/2025 11:05 AM EST Pt called and states that Caitlin told her that she would write a pain medication for her. Please calland advise pharm: Total care Loren documented in this encounter Plan of Treatment Upcoming Encounters Date Type Department Care Team (Late st Contact Info) Description 06/01/2025 1:45 PM EST [facility] [address] [facility] [address] [place], [place] [phone] Caitlin Avila NP [address] [place] [address] 06/05/2025 10:00 AM EST Appointment [place] [address] 06/05/2025 10:20 AM EST [facility]ment [facility] [place] [address] Gerry Bae MD [address] [place] [phone] 06/05/2025 11:00 AM EST Appointment [place] [address] 07/02/2025 1:00 PM EST Office Visit [facility] Nephrology [address] [place] [address] Nafisa Stringer MD [address] [place] [address] documented as of this encounter Goals Goal Patient Goal Type Associated Problems Recent Progress Patient-Stated? Author Knowledge Deficit General No Margaret Dickinson APRN Note: Chemotherapy education provided and reviewed. documented as of this encounter Visit Diagnoses Not on filedocumented in this encounter Care Teams Editor City Relationship Specialty Start Date End Date Laureano Marin MD [address] [place] [address] PCP - General Family Medicine 07/09/22 Gerry Bae MD [address] [place] [address] [place] [address] Medical Oncologist Internal Medicine-Hematology and Oncology 07/20/22 documented as of this encounter
--- OUTSIDE RECORDS SUMMARY | 2025-05-31 14:47 | XMS_ITS | Encounter Summary ---
Author Organization [facility] Address [address] [place] [address] Care Team Providers Care Dairy Processing Supervisor Name Role Phone Laureano Marin MD Primary Care Provider + [phone] Gerry Bae MD Unavailable [phone] Reason for Visit * Reason Onset Date Comments Medication Question 04/18/2025 Encounter Details Date Type Department Care Team (Late st Contact Info) Description 04/18/2025 [place] [address] Liliam Mc N, MANAGER CLIN[facility] [address] [place] [address] Medication Question Social History Tobacco Use Types Packs/Day Years [...] encounter Miscellaneous Notes * Telephone Encounter - Nayely Cabrera - 04/18/2025 10:36 AM EDT I spoke with the patient about her previous message. I informed her that she can take Tylenol whileon the steroid. Once she completes that steroid if she wants to go back to taking other NSAIDS she can. The patient verbally understood everything discussed. * Telephone Encounter - Rob Chairez, Clerical Staff - 04/18/2025 10:16 AM EDT She was seen in the walk in She wanted to know if she can take Tylenol while taking the Steroid karie. Please call back documented in this encounter Plan of Treatment Upcoming Encounters Date Type Department Care Team (Late st Contact Info) Description 06/01/2025 1:45 PM EST Office Visit [facility] [address] [address] Caitlin Avila NP [address] [place] [address] 06/05/2025 10:00 AM EST Appointment [facility] [place], [place] [phone] 06/05/2025 10:20 AM EST [facility]ointment [facility] [place], [place] [phone] Gerry Bae MD [address] [place] [phone] 06/05/2025 11:00 AM EST Appointment [facility] [place], [place] [phone] 07/02/2025 1:00 PM EST Office Visit [facility] Nephrology [facility] 40 [facility] 204 [place] [address] Nafisa Stringer MD [address] [place] [phone] documented as of this encounter Goals Goal Patient Goal Type Associated Problems Recent Progress Patient-Stated? Author Knowledge Deficit General No Margaret Dickinson APRN Note: Chemotherapy education provided and reviewed. documented as of this encounter Visit Diagnoses Not on filedocumented in this encounter Care Teams Dairy Processing Supervisor Relationship Specialty Start Date End Date Laureano Marin MD [address] [place] [address] PCP - General Family Medicine 07/09/22 Gerry Bae MD 1 [facility] [place] [address] Medical Oncologist Internal Medicine-Hematology and Oncology 07/20/22 documented as of this encounter
--- OUTSIDE RECORDS SUMMARY | 2025-05-31 14:47 | XMS_ITS | Encounter Summary ---
Author Organization [facility] [place] [address] Care Team Providers Care Brake Linings Coater Name Role Phone Laureano Marin MD Primary Care Provider + [phone] Gerry Bae MD Unavailable [phone] Encounter Details Date Type Department Care Team (Late st Contact Info) Description 04/17/2025 Nutrition [place] [address],LD Social History Tobacco Use Types Packs/Day Years [...] as of this encounter Progress Notes * Kayla Novoa RD,LD - 04/17/2025 3:34 PM EDT Attempted to call pt today to follow up on diet instruction for weight loss. Note pt was very drowsy at last RD visit, therefore, thorough education was deferred and handouts were left at chairside. Unfortunately, pt did not answer phone at time of call today. Left VM and encouraged her to call back with any questions or concerns if needed. Will remain available for further support as requested. documented in this encounter Plan of Treatment Upcoming Encounters Date Type Department Care Team (Late st Contact Info) Description 06/01/2025 1:45 PM EST Office Visit [facility] [address] [place], [place] [phone] Caitlin Avila NP [address] [facility], [place] [phone] 06/05/2025 10:00 AM EST Appointment [facility] [place], [place] [phone] 06/05/2025 10:20 AM EST [facility]ointment [facility] [place], [place] [phone] Gerry Bae MD [address] [place] [address] 06/05/2025 11:00 AM EST Appointment [facility] [place], [place] [phone] 07/02/2025 1:00 PM EST Office Visit [facility] Nephrology [address] [address] Nafisa Stringer MD [address] [place] [phone] documented as of this encounter Goals Goal Patient Goal Type Associated Problems Recent Progress Patient-Stated? Author Knowledge Deficit General No Margaret Dickinson, KEMAR Note: Chemotherapy education provided and reviewed. documented as of this encounter Visit Diagnoses Not on filedocumented in this encounter Care Teams Brake Linings Coater Relationship Specialty Start Date End Date Larueano Marin MD [address] [place] [address] PCP - General Family Medicine 07/09/22 Gerry Bae MD [address] [facility] [place] [address] Medical Oncologist Internal Medicine-Hematology and Oncology 07/20/22 documented as of this encounter
--- OUTSIDE RECORDS SUMMARY | 2025-05-31 14:47 | XMS_ITS | Encounter Summary ---
Author Organization [facility] Address [address] [place] [address] Care Team Providers Care Plant Technician/Control Room Operator Name Role Phone Laureano Marin MD Primary Care Provider + [phone] Gerry Bae MD Unavailable [phone] Reason for Visit * Reason Onset Date Comments Medication Refill 05/16/2025 Requests [place] codone prior to gel injections.Take 30-45 minutes prior to appointment.Advised must have a wedding transportation driver. Encounter Details Date Type Department Care Team (Late st Contact Info) Description 05/16/2025 Refill [facility] [place] [address] [place] [id number] Caitlin Avila, TRINA [address] [place] [address] Medication Refill (Requests Hydrocodone prior to gel injections./Take 30-45 minutes prior to appointment./Advised must have a wedding transportation driver.) Social History Tobacco Use Types Packs/Day Years [...] minutes prior to gel injections. 3 Tablet 05/16/2025 documented in this encounter Plan of Treatment Upcoming Encounters Date Type Department Care Team (Late st Contact Info) Description 06/01/2025 1:45 PM EST Office Visit [facility] [address] [facility] 100 [place], [place] [phone] Caitlin Avila NP [address] [place] [address] 06/05/2025 10:00 AM EST Appointment [facility] [place], [place] [phone] 06/05/2025 10:20 AM EST Appointment [facility] [place], [place] [phone] Gerry Bae MD [address] [place] [phone] 06/05/2025 11:00 AM EST Appointment [facility] [place], [place] [phone] 07/02/2025 1:00 PM EST Office Visit [facility] Nephrology [address] [address] Nafisa Stringer MD [address] [place], [place] [phone] documented as of this encounter Goals Goal Patient Goal Type Associated Problems Recent Progress Patient-Stated? Author Knowledge Deficit General No Margaret Dickinson APRN Note: Chemotherapy education provided and reviewed. documented as of this encounter Visit Diagnoses Diagnosis Primary osteoarthritis of right knee- Primary Primary localized osteoarthrosis, lower leg Primary osteoarthritis of left knee Primary localized osteoarthrosis, lower leg documented in this encounter Care Teams Plant Technician/Control Room Operator Relationship Specialty Start Date End Date Laureano Marin MD [address] [place] [address] PCP - General Family Medicine 07/09/22 Gerry Bae MD [address] [place] [address] Medical Oncologist Internal Medicine-Hematology and Oncology 07/20/22 documented as of this encounter
--- OUTSIDE RECORDS SUMMARY | 2025-05-31 14:48 | XMS_ITS | Encounter Summary ---
Author Organization [place] [address] Care Team Providers Care Slasher Name Role Phone Laureano Marin MD Primary Care Provider + [phone] Gerry Bae MD Unavailable [phone] Ciara Valencia RN Unavailable Unavailable Encounter Details Date Type Department Care Team (Late st Contact Info) Description 04/10/2025 Nutrition [place] [address],LD Social History [...] Progress Notes * Kayla Novoa RD,LD - 04/10/2025 2:33 PM EDT NEO attempted to meet with pt in infusion suite for weight loss diet instruction per her request. Pthad received Benadryl and was very drowsy at time of visit. NEO left handouts and contact information and encouraged pt to look over it later when feeling more alert. Will follow up for further education and support at later date/time as able. documented in this encounter Plan of Treatment Upcoming Encounters Date Type Department Care Team (Late st Contact Info) Description 06/01/2025 1:45 PM EST Office Visit Anuja LI [address] [facility] 100 [place], [place] [id number] Caitlin Avila NP [address]26 [place], [place] [phone] 06/05/2025 10:00 AM EST Appointment [facility] [place], [place] [id number] 06/05/2025 10:20 AM EST Appointment [facility] [place], [place] [id number] Gerry Bae MD [address] [place] [id number] 06/05/2025 11:00 AM EST Appointment [facility] [place], [place] [id number] 07/02/2025 1:00 PM EST Office Visit [facility] Nephrology [address] [place] [address] Nafisa Stringer MD [facility] [phone] documented as of this encounter Goals Goal Patient Goal Type Associated Problems Recent Progress Patient-Stated? Author Knowledge Deficit General No Margaret Dickinson, KEMAR Note: Chemotherapy education provided and reviewed. documented as of this encounter Visit Diagnoses Not on filedocumented in this encounter Care Teams Slasher Relationship Specialty Start Date End Date Laureano Marin MD [address] [place] [address] PCP - General Family Medicine 07/09/22 Gerry Bae MD [address] [place] [address] Medical Oncologist Internal Medicine-Hematology and Oncology 07/20/22 Ciara Valencia, RN Registered Nurse Infusion Therapy 04/10/25 04/10/25 documented as of this encounter
--- OUTSIDE RECORDS SUMMARY | 2025-05-31 14:48 | XMS_ITS | Encounter Summary ---
Author Organization [facility] Address [address] [place] [address] Care Team Providers Care Army Helicopter Pilot Name Role Phone Laureano Marin MD Primary Care Provider + [phone] Gerry Bae MD Unavailable [phone] Reason for Visit * Reason Onset Date Comments Patient Question 05/28/2025 Encounter Details Date Type Department Care Team (Late st Contact Info) Description 05/28/2025 Telephone [facility] [address] [address] Caitlin Avila NP [address] [place] [address] Patient Question Social History Tobacco Use Types Packs/Day [...] encounter Miscellaneous Notes * Telephone Encounter - Caitlin Avila NP - 05/28/2025 3:15 PM EST I sent it. * Telephone Encounter - Gretchen Mayo - 05/28/2025 1:52 PM EST Yudi stopped in the office to remind Caitlin Avila about her pain med prescription being sent to her pharmacy. Epic was down on Friday 05/25 when she came in for her injections. documented in this encounter Plan of Treatment Upcoming Encounters Date Type Department Care Team (Late st Contact Info) Description 06/01/2025 1:45 PM EST Office Visit [facility]ja LI 2626 [facility] 100 [place] [address] Caitlin Avila NP 2626 [place], [place] [phone] 06/05/2025 10:00 AM EST Appointment [facility] [place], [place] [id number] 06/05/2025 10:20 AM EST Appointment [facility] [place], [place] [phone] Gerry Bae MD [address] [place] [address] [id number] 06/05/2025 11:00 AM EST Appointment [facility] [place], [place] [phone] 07/02/2025 1:00 PM EST Office Visit [facility] Nephrology [address] [address] Nafisa Stringer MD [address] [place], [place] [address] documented as of this encounter Goals Goal Patient Goal Type Associated Problems Recent Progress Patient-Stated? Author Knowledge Deficit General No Margaret Dickinson APRN Note: Chemotherapy education provided and reviewed. documented as of this encounter Visit Diagnoses Not on filedocumented in this encounter Care Teams Army Helicopter Pilot Relationship Specialty Start Date End Date [place], Laureano T, MD [address] [place] [address] PCP - General Family Medicine 07/09/22 Gerry Bae MD [address] [facility] [place] [address] Medical Oncologist Internal Medicine-Hematology and Oncology 07/20/22 documented as of this encounter
--- OUTSIDE RECORDS SUMMARY | 2025-05-31 14:48 | XMS_ITS | Encounter Summary ---
Author Organization [facility] [address] Care Team Providers Care Erp Implementation Consultant Name Role Phone Laureano Marin MD Primary Care Provider + [phone] Gerry Bae MD Unavailable [phone] Reason for Visit * Reason Onset Date Comments Medication Management 04/16/2025 asking abo ut cortisone shot Encounter Details Date Type Department Care Team (Late st Contact Info) Description 04/16/2025 Telephone [facility] [place] [address] Gerry Bae MD [address] [place] [address] Medication Management (asking about cortisone shot ) Social History Tobacco Use Types Packs/Day Years [...] encounter Miscellaneous Notes * Telephone Encounter - Lizette Mayo RN - 04/16/2025 4:31 PM EDT Spoke to Dr. Bae, ok to proceed. Called Yudi. She is agreeable. * Telephone Encounter - Ev Paulino NA - 04/16/2025 3:59 PM EDT Reason for call: Patient said she has a heel spur that is acting up. She is wanting to ask Dr. Bae if she is ok to go to ortho and have a cortisone shot. Preferred call back number: [phone] *requesting call back today if possible. Would like to make appt kym. documented in this encounter Plan of Treatment Upcoming Encounters Date Type Department Care Team (Late st Contact Info) Description 06/01/2025 1:45 PM EST Office Visit [facility] 2626 [facility] 100 [place], [place] [phone] Caitlin Avila NP 2626 [place] [address] 06/05/2025 10:00 AM EST Appointment [facility] [place] [address] 06/05/2025 10:20 AM EST Appointment [facility] [place], [place] [phone] Gerry Bae MD [address] [place] [address] [phone] 06/05/2025 11:00 AM EST Appointment [place] [address] 07/02/2025 1:00 PM EST Office Visit [facility] Nephrology [address] [place] [address] Nafisa Stringer MD [address] [place] [address] documented as of this encounter Goals Goal Patient Goal Type Associated Problems Recent Progress Patient-Stated? Author Knowledge Deficit General No Margaret Dickinson APRN Note: Chemotherapy education provided and reviewed. documented as of this encounter Visit Diagnoses Not on filedocumented in this encounter Care Teams Erp Implementation Consultant Relationship Specialty Start Date End Date Laureano Marin MD [address] [place] [address] PCP - General Family Medicine 07/09/22 Gerry Bae MD [address] [facility] [place] [address] Medical Oncologist Internal Medicine-Hematology and Oncology 07/20/22 documented as of this encounter
--- OUTSIDE RECORDS SUMMARY | 2025-05-31 14:50 | XMS_ITS | Encounter Summary ---
Author Organization [facility] [place] [address] Care Team Providers Care Collection Technician Name Role Phone Laureano Marin MD Primary Care Provider + [phone] Krupa Wilson LCSW Unavailable [phone] Eri Bae MD Unavailable [phone] Bernie Sage RN Unavailable Unavailable Rajani Fall RN Unavailable Unavaila Shaunna Daniel RN Unavailable Unava ilable Lubna Cisneros RN Unavailable Unavailable Kaylyn Hutton RN Unavailable Unavailable Gabrielle Lugo RN Unavailable Unavailable Shannan Mercer Clerical Staff Unavailable Jessica Zamudio RN Unavailable Unavailable Ruth Ortez RN Unavailable UnavailLuisa Campos RN Unavailable Unavaila Florencia Bullock RN Unavailable Unavailable Stephani Wolfe RN Unavailable UnavailEsther Varela RN Unavailable Unavailable Raeann Grady RN Unavailable Unavailable Ciara Valencia RN Unavailable Unavailable Karen Guzman RN Unavailable Unavailable Encounter Details Date Type Department Care Team (Late st Contact Info) Description 08/04/2022 Orders Only [facility] [place] [address] Leydi Mendez MD [address] [place] [address] [place] [address] Social History Tobacco Use Types Packs/Day Years Used Date Smoking Tobacco: Never Smokeless Tobacco: Never Alcohol Use Standard Drinks/Week Comments Never 0 (1 standard drink = 0.6 oz pur e alcohol) PHQ-2 Answer Date Recorded PHQ-2 Total Score 0 07/17/2022 Comments No Sex and Gender Information Value Date Recorded Sex Assigned at Not on file Legal Sex Female 9:00 PM EDT Gender Identity Not on file Sexual Orientation Not on file COVID-19 Exposure Response Date Recorded In the last 10 days, have yo u been in contact with someone who was confirmed or suspected to have Coronavirus/COVID-19? No / Unsure 08/04/2022 10:01 AM EST documented as of this encounter Plan of Treatment Upcoming Encounters Date Type Department Care Team (Late st Contact Info) Description 06/01/2025 1:45 PM EST Office Visit Anuja LI 2626 [facility] 100 [place] [address] Caitlin Avila NP 2626 [place], [place] [phone] 06/05/2025 10:00 AM EST Appointment [place] [address] 06/05/2025 10:20 AM EST Appointment [facility] [place], [place] [phone] Eri Bae MD [address] [place] [phone] 06/05/2025 11:00 AM EST Appointment [place] [address] 07/02/2025 1:00 PM EST Office Visit [facility] Nephrology [address] [place] [address] Nafisa Stringer MD [address] [place] [address] documented as of this encounter Procedures Procedure Name Priority Date/Time Associated Diagnosis Comments NEOGENOMICS STANDARD LEUKEMIA/LYMPHOMA PANEL Routine 08/04/2022 12:40 PM EST documented in this encounter Results * NEOGENOMICS STANDARD LEUKEMIA/LYMPHOMA PANEL (08/04/2022 12:40 PM EST) 08/04/2022 12:4 0 PM EST Narrative [facility] - 08/06/2022 2:22 PM EST Requesting Provider: ERI Duarte Specimen = [id number] us Leydi Mendez MD PATHOLOGY ORDERABLES Final Result [facility] 1 [place] [address] documented in this encounter Visit Diagnoses Not on filedocumented in this encounter Additional Health Concerns Infection Onset Date Last Indicated Resolved Time R/O COVID-19 11/10/2023 11/10/2023 11/12/2023 11:0 5 AM EDT documented as of this encounter Care Teams Collection Technician Relationship Specialty Start Date End Date Laureano Marin MD [address] [place] [address] PCP - General Family Medicine 07/09/22 Krupa Wilson LCSW Building Energy Consultant 07/13/22 08/25/22 Eri Bae MD 1 [place], [place] [phone] Medical Oncologist Internal Medicine-Hematology and Oncology 07/20/22 Bernie Sage, RN Registered Nurse 02/08/24 02/08/24 Rajani Fall, FANY Registered Nurse Infusion Therapy 04/04/24 04/04/24 Shaunna Singh, RN Registered Nurse 05/02/24 05/02/24 Lubna Cisneros RN Registered Nurse Infusion Therapy 05/30/24 05/30/24 Kaylyn Hutton, FANY Registered Nurse Infusion Therapy 06/27/24 06/27/24 Gabrielle Lugo, RN Registered Nurse Infusion Therapy 07/11/24 07/11/24 Shannan Mercer, Clerical Staff Financial Counselor 07/19/24 12/19/24 Jessica Zamudio RN Registered Nurse Infusion Therapy 08/28/24 08/28/24 Ruth Ortez, RN Registered Nurse Infusion Therapy 09/26/24 09/26/24 Luisa Tirado RN Registered Nurse Infusion Therapy 11/21/24 11/21/24 Florencia Melgoza, RN Registered Nurse Infusion Therapy 12/19/24 12/19/24 Stephani Wolfe, RN Registered Nurse Infusion Therapy 01/16/25 01/16/25 Esther Crowe, RN Registered Nurse Infusion Therapy 02/13/25 02/13/25 Raeann Grady RN Registered Nurse Infusion Therapy 03/13/25 03/13/25 Ciara Valencia, RN Registered Nurse Infusion Therapy 04/10/25 04/10/25 Karen Guzman, RN Registered Nurse Infusion Therapy 05/08/25 05/08/25 documented as of this encounter
--- OUTSIDE RECORDS SUMMARY | 2025-05-31 14:50 | XMS_ITS | Encounter Summary ---
Author Organization [facility] [place] [place] [address] Care Team Providers Care Dope Weigh Operator Name Role Phone Laureano Marin MD Primary Care Provider + [phone] Krupa Wilson LCSW Unavailable [phone] Eri Bae MD Unavailable [phone] Bernie Sage RN Unavailable Unavailable Rajani [...] Description 08/04/2022 Orders Only [facility] One [facility] [place] [address] Leydi Mendez MD [address] [place] [address] [place] [address] Social History Tobacco Use Types Packs/Day Years [...] PM EST Office Visit Anuja LI 2626 [facility] 100 [place] [address] Caitlin Avila NP 2626 [place], [place] [phone] 06/05/2025 10:00 AM EST Appointment [place] [address] 06/05/2025 10:20 AM EST Appointment [facility] [place], [place] [phone] Eri Bae MD [address] [place] [address] [phone] 06/05/2025 11:00 AM EST Appointment [place] [address] 07/02/2025 1:00 PM EST Office Visit [facility] Nephrology [address] 204 [place] [address] Nafisa Stringer MD [address] [place] [address] documented as of this encounter Procedures Procedure Name Priority Date/Time Associated Diagnosis Comments NEOGENOMICS PLASMA CELL MYELOMA PROGNOSTIC PANEL Routine 08/04/2022 12:40 PM EST documented in this encounter Results * NEOGENOMICS PLASMA CELL MYELOMA PROGNOSTIC PANEL (08/04/2022 12:40 PM EST) 08/04/2022 12:4 0 PM EST Narrative [facility] - 08/10/2022 2:22 PM EST Requesting Provider: ERI Duarte Specimen = [id number] us Leydi Mendez MD PATHOLOGY ORDERABLES Final Result [facility] 1 [place] [address] documented in this encounter Visit Diagnoses Not on filedocumented in this encounter Additional Health Concerns Infection Onset Date Last Indicated Resolved Time R/O COVID-19 11/10/2023 11/10/2023 11/12/2023 11:0 5 AM EDT documented as of this encounter Care Teams Dope Weigh Operator Relationship Specialty Start Date End Date Laureano Marin MD [address] [place] [address] PCP - General Family Medicine 07/09/22 rKupa Wilson LCSW Sorter Lumber Straightener 07/13/22 08/25/22 Eri Bae MD 1 [place], [place] [phone] Medical Oncologist Internal Medicine-Hematology and Oncology 07/20/22 [...]
--- OUTSIDE RECORDS SUMMARY | 2025-05-31 14:51 | XMS_ITS | Encounter Summary ---
Author Organization [place] [address] Care Team Providers Care Digital Media Specialist Name Role Phone Laureano Marin MD Primary Care Provider + [phone] Gerry Bae MD Unavailable [phone] Raeann Grady RN Unavailable Unavailable Ciara Valencia RN Unavailable Unavailable Encounter Details Date Type Department Care Team (Late Contact Info) Description 03/06/2025 Results Follow-Up [facility] Dermatology [facility] [address] [facility] 19 [place] [address] Jovan Parikh MD [address] [place] [id number] DERMATOPATHOLOGY TISSUE SEND OUT REQUEST Social History Tobacco Use Types Packs/Day Years [...] Description 06/01/2025 1:45 PM EST Office Visit [facility] [address] [place] [address] Caitlin Avila NP [address] [place] [address] 06/05/2025 10:00 AM EST Appointment [facility] [place], [place] [phone] 06/05/2025 10:20 AM EST Appointment [facility] [place], [place] [phone] Gerry Bae MD [address] [place] [address] [address] [place], [place] [phone] 06/05/2025 11:00 AM EST Appointment [facility] [place], [place] [id number] 07/02/2025 1:00 PM EST Office Visit [facility] Nephrology [address] [address] Nafisa Stringer MD [address] [place] [address] documented as of this encounter Goals Goal Patient Goal Type Associated Problems Recent Progress Patient-Stated? Author Knowledge Deficit General No Margaret Dickinson APRN Note: Chemotherapy education provided and reviewed. documented as of this encounter Visit Diagnoses Not on filedocumented in this encounter Care Teams Digital Media Specialist Relationship Specialty Start Date End Date Laureano Marin MD [address] [place] [address] PCP - General Family Medicine 07/09/22 Gerry Bae MD [address] [facility] [address] [place] [phone] Medical Oncologist Internal Medicine-Hematology and Oncology 07/20/22 Raeann Grady RN Registered Nurse Infusion Therapy 03/13/25 03/13/25 Telesz, Ciara, RN Registered Nurse Infusion Therapy 04/10/25 04/10/25 documented as of this encounter
--- OUTSIDE RECORDS SUMMARY | 2025-05-31 14:51 | XMS_ITS | Encounter Summary ---
Author Organization [place] [address] Care Team Providers Care Help Desk Internship Name Role Phone Laureano Marin MD Primary Care Provider + [phone] Gerry Bae MD Unavailable [phone] Ciara Valencia RN Unavailable Unavailable Reason for Visit * Reason Comments Medication Refill Encounter Details Date Type Department Care Team (Late st Contact Info) Description 04/09/2025 Refill [facility] [place] [address] Gerry Bae MD [address] [place], [place] [phone] Medication Refill Social History Tobacco Use Types Packs/Day Years [...] Refills Last Filled Start Date End Date valACYclovir (VALTREX) 500 mg Oral TabletIndications:M ultiple myeloma not having achieved remission (HCC) Take 1 Tablet by mouth every 12 hours. 60 Tablet 3 04/10/2025 documented in this encounter Miscellaneous Notes * Telephone Encounter - Lizette Mayo, FANY - 04/10/2025 11:30 AM EDT Received refill request for Valtrex. Chart reviewed. On [place]. Last script of 60 tablets/ capsules sent on 12/06/24. Refill is appropriate this date. Patient scheduled for next OV on 05/08/25. Sending refill to patient's preferred pharmacy. documented in this encounter Plan of Treatment Upcoming Encounters Date Type Department Care Team (Late st Contact Info) Description 06/01/2025 1:45 PM EST Office Visit Anuja LI 2626 [facility] 100 [place] [address] Caitlin Avila NP 2626 [place] [address] 06/05/2025 10:00 AM EST Appointment [facility] [place], [place] [phone] 06/05/2025 10:20 AM EST Appointment [facility] [place], [place] [phone] Gerry Bae MD [address] [place] [address] [phone] 06/05/2025 11:00 AM EST Appointment [facility] [place] [address] 07/02/2025 1:00 PM EST Office Visit [facility] Nephrology [address] [address] Nafisa Stringer MD [address] [place] [address] [place] [phone] documented as of this encounter Goals Goal Patient Goal Type Associated Problems Recent Progress Patient-Stated? Author Knowledge Deficit General No Margaret Dickinson APRN Note: Chemotherapy education provided and reviewed. documented as of this encounter Visit Diagnoses Diagnosis Multiple myeloma not having achieved remission (HCC) Multiple myeloma, without mention of having achieved remission documented in this encounter Discontinued Medications Medication Sig Discontinue Reason Start Date End Da te valACYclovir (VALTREX) 500 mg Oral TabletIndications:Multip le myeloma not having achieved remission (HCC) Take 1 Tablet by mouth every 12 hours. 12/06/2024 04/10/2025 documented as of this encounter Care Teams Help Desk Internship Relationship Specialty Start Date End Date Laureano Marin MD [address] [facility] [place] [address] PCP - General Family Medicine 07/09/22 Gerry Bae MD [address] [place] [address] [place] [address] Medical Oncologist Internal Medicine-Hematology and Oncology 07/20/22 Ciara Valencia, FANY Registered Nurse Infusion Therapy 04/10/25 04/10/25 documented as of this encounter
--- OUTSIDE RECORDS SUMMARY | 2025-05-31 14:51 | XMS_ITS | Encounter Summary ---
Author Organization [place] [address] Care Team Providers Care Natural Gas Plant Supervisor Name Role Phone Laureano Marin MD Primary Care Provider + [phone] Krupa Wilson LCSW Unavailable [phone] Eri Bae MD Unavailable [phone] Bernie Sage RN Unavailable Unavailable Rajani [...] Description 08/04/2022 Orders Only [facility] [place] [address] Leydi Mendez MD [address] [place] [address] [place] [address] Social History Tobacco Use Types Packs/Day Years [...] PM EST Office Visit Anuja LI 2626 [facility] 100 [place] [address] Caitlin Avila NP 2626 [place], [place] [phone] 06/05/2025 10:00 AM EST Appointment [place] [address] 06/05/2025 10:20 AM EST Appointment [facility] [place], [place] [phone] Eri Bae MD [address] [place] [phone] 06/05/2025 11:00 AM EST Appointment [facility] [place] [address] 07/02/2025 1:00 PM EST Office Visit [facility] Nephrology [address] [address] Nafisa Stringer MD [address] [place] [phone] documented as of this encounter Procedures Procedure Name Priority Date/Time Associated Diagnosis Comments NEOGENOMICS ONCOLOGY CHROMOSOME ANALYSIS Routine 08/04/2022 12:40 PM EST documented in this encounter Results * NEOGENOMICS ONCOLOGY CHROMOSOME ANALYSIS (08/04/2022 12:40 PM EST) 08/04/2022 12:4 0 PM EST Narrative [facility] - 08/13/2022 4:22 PM EST Requesting Provider: ERI Duarte Specimen = [id number] us Leydi Mendez MD PATHOLOGY ORDERABLES Final Result [facility] 1 [place] [address] documented in this encounter Visit Diagnoses Not on filedocumented in this encounter Additional Health Concerns Infection Onset Date Last Indicated Resolved Time R/O COVID-19 11/10/2023 11/10/2023 11/12/2023 11:0 5 AM EDT documented as of this encounter Care Teams Natural Gas Plant Supervisor Relationship Specialty Start Date End Date Laureano Marin MD [address] [place] [address] PCP - General Family Medicine 07/09/22 Krupa Wilson LCSW Process Analyst 07/13/22 08/25/22 Eri Bae MD 1 [facility] [place], [place] [id number] Medical Oncologist Internal Medicine-Hematology and Oncology 07/20/22 Bernie Sage, RN Registered Nurse 02/08/24 02/08/24 Rajani Fall, RN Registered Nurse Infusion Therapy 04/04/24 04/04/24 Shaunna Singh, RN Registered Nurse 05/02/24 05/02/24 Lubna Cisneros RN Registered Nurse Infusion Therapy 05/30/24 05/30/24 Kaylyn Hutton, FANY Registered Nurse Infusion Therapy 06/27/24 06/27/24 Gabrielle Lugo, RN Registered Nurse Infusion Therapy 07/11/24 07/11/24 Shannan Mercer, Clerical Staff Financial Counselor 07/19/24 12/19/24 Jessica Zamudio, RN Registered Nurse Infusion Therapy 08/28/24 08/28/24 Ruth Ortez, RN Registered Nurse Infusion Therapy 09/26/24 09/26/24 Luisa Tirado RN Registered Nurse Infusion Therapy 11/21/24 11/21/24 Florencia Melgoza, RN Registered Nurse Infusion Therapy 12/19/24 12/19/24 Stephani Wolfe, RN Registered Nurse Infusion Therapy 01/16/25 01/16/25 Esther Crowe, RN Registered Nurse Infusion Therapy 02/13/25 02/13/25 Raeann Grady, RN Registered Nurse Infusion Therapy 03/13/25 03/13/25 Ciara Valencia, RN Registered Nurse Infusion Therapy 04/10/25 04/10/25 Karen Guzman, RN Registered Nurse Infusion Therapy 05/08/25 05/08/25 documented as of this encounter
--- OUTSIDE RECORDS SUMMARY | 2025-05-31 14:51 | XMS_ITS | Encounter Summary ---
Author Organization [place] [address] Care Team Providers Care Relationship Consultant Name Role Phone Laureano Marin MD Primary Care Provider + [phone] Gerry Bae MD Unavailable [phone] Reason for Visit * Reason Onset Date Comments Medication Management 05/10/2025 question a bout medications Encounter Details Date Type Department Care Team (Late st Contact Info) Description 05/10/2025 [facility]phone [facility] [place] [address] Gerry Bae MD [address] [place], [place] [id number] Medication Management (question about medications ) Social History Tobacco Use Types Packs/Day [...] Telephone Encounter - Esther Batista RN - 05/10/2025 10:[address] Bae, ok for injection if needed. Call to patient to relay information. She vu. * Telephone Encounter - Esther Batista RN - 05/10/2025 10:36 AM EDT Call to patient who states her PCP did a UA results at [facility], and prescribed the antibiotic. I let her know OK to take after per clinical castillo, no drug to drug interaction with meds prescribed by Dr. Bae (revlimid, potassium, valtrex). I let her know that I will message Dr. Bae about the cortisone injection and get back with her.Secure chat to MD. * Telephone Encounter - Ev Paulino NA - 05/10/2025 9:09 AM EDT Reason for call: Patient went to PCP yesterday and has UTI. Was prescribed cefuroxime axetil 500mg 2x per day. She was calling to check to see if she was ok to take that. Also has appt with Lex Trinidad tomorrow about her knees. Is asking if she would be ok to have cortisone shot. Preferred call back number: [phone] documented in this encounter Plan of Treatment Upcoming Encounters Date Type Department Care Team (Late st Contact Info) Description 06/01/2025 1:45 PM EST Office Visit Anuja LI [address] [address] Caitlin Avila NP [address] [place] [address] 06/05/2025 10:00 AM EST Appointment [facility] [place], [place] [id number] 06/05/2025 10:20 AM EST [facility]ment [facility] [place] [address] Gerry Bae MD [address] [place] [address] [place] [address] 06/05/2025 11:00 AM EST Appointment [facility] [place] [address] 07/02/2025 1:00 PM EST Office Visit [facility] Nephrology [address] [place] [address] Nafisa Stringer MD [address] [place] [address] documented as of this encounter Goals Goal Patient Goal Type Associated Problems Recent Progress Patient-Stated? Author Knowledge Deficit General Margaret Robles APRN Note: Chemotherapy education provided and reviewed. documented as of this encounter Visit Diagnoses Not on filedocumented in this encounter Care Teams Relationship Consultant Relationship Specialty Start Date End Date Laureano Marin MD [address] [place] [address] [place] [id number] PCP - General Family Medicine 07/09/22 Gerry Bae MD [address] [facility] [place] [address] Medical Oncologist Internal Medicine-Hematology and Oncology 07/20/22 documented as of this encounter
== END 2025-05-31 23:59 | disposition home or self-care (01) ==
LOC: RAD 12:58
PROVIDERS: PCP Nurse Practitioner; Visit Provider Nurse Practitioner
DX: Z12.31 Encounter for screening mammogram for malignant neoplasm of breast (principal); R92.323 Mammographic fibroglandular density, bilateral breasts
CPT/HCPCS: 77063; 77067